=== PATIENT | male | born 1960 | race African-American/Black ===

== ENCOUNTER 2018-02-05 15:05 | Emergency (ER) | payer BC, OTHER, SELFPAY ==
[2018-02-05] MEDS ORDERED: MORPHINE 4 MG/ML SYR ONE ×2 (15:28→17:46)
--- NOTE | 2018-02-05 16:45 | ER ---
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 Transition of care: patient was not received from another setting of care. Onset of symptoms was February 05, 2018. Risk Assessment: Do you want to hurt yourself or someone else? Patient reports no desire to harm self or others. Initial Sepsis Screen: Does the patient meet any 2 criteria? No. Patient's initial sepsis screen is negative. Does the patient have a suspected source of infection? No. Patient's initial sepsis screen is negative. Care prior to arrival: None. 15:06 Method Of Arrival: EMS: [facility] 15:06 Acuity: JULISSA 4 hj Triage Assessment: 15:11 General: Appears in no apparent distress. uncomfortable, Behavior is calm, cooperative, hj appropriate for age. Pain: Complains of pain in right leg. EENT: No signs and/or symptoms were reported regarding the EENT system. Neuro: Level of Consciousness is awake, alert, obeys commands, Oriented to person, place, time, situation, Appropriate for age. Cardiovascular: Capillary refill < 3 seconds Patient's skin is warm and dry. Respiratory: Airway is patent Respiratory effort is even, unlabored, Respiratory pattern is regular, symmetrical. GI: No signs and/or symptoms were reported involving the gastrointestinal system. : No signs and/or symptoms were reported regarding the genitourinary system. Derm: No signs and/or symptoms reported regarding the dermatologic system. Musculoskeletal: per report fracture Reports pain in right leg. Injury Description: Crush injury. Historical: - Allergies: 15:10 No Known Allergies; hj - Home Meds: 15:10 lisinopril Oral [Active]; Januvia oral oral [Active]; Aspirin Oral [Active]; hj hydrochlorothiazide Oral [Active]; - PMHx: 15:10 Hypertension; Diabetes - NIDDM; hj - PSHx: 15:10 Unable to obtain; hj - Immunization history:: Adult Immunizations up to date. - Social history:: Smoking status: Patient/guardian denies using tobacco, Patient/guardian denies using alcohol. - Ebola Screening: : Patient negative for fever greater than or equal to 101.5 degrees Fahrenheit, and additional compatible Ebola Virus Disease symptoms Patient denies exposure to infectious person Patient denies travel to an Ebola-affected area in the 21 days before illness onset. - Family history:: not pertinent. - Hospitalizations: : No recent hospitalization is reported. Screenin:12 Abuse screen: Denies threats or abuse. Denies injuries from another. Nutritional hj screening: No deficits noted. Tuberculosis screening: No symptoms or risk factors identified. Fall Risk None identified. Assessment: 15:20 Reassessment: per provider, eze wrapped and gauze removed;. General: Appears in no hj apparent distress. uncomfortable, Behavior is calm, cooperative, appropriate for age. Pain: Complains of pain in right leg. Neuro: Level of Consciousness is awake, alert, obeys commands, Oriented to person, place, time, situation, Appropriate for age. Cardiovascular: Capillary refill < 3 seconds Patient's skin is warm and dry. Respiratory: Airway is patent Respiratory effort is even, unlabored, Respiratory pattern is regular, symmetrical. GI: No signs and/or symptoms were reported involving the gastrointestinal system. : No signs and/or symptoms were reported regarding the genitourinary system. EENT: No signs and/or symptoms were reported regarding the EENT system. Derm: No signs and/or symptoms reported regarding the dermatologic system. Musculoskeletal: Reports numbness in right leg pain in right leg. 16:06 Reassessment: xray taken; awaiting results and POC:. 16:45 Reassessment: for transfer to [facility] per ; will update family on POC;. Vital Signs: 15:12 BP 167 / 109; Pulse 85; Resp 18; Temp 98.0(O); Pulse Ox 96% on R/A; Weight 127.01 kg; hj Height 6 ft. 0 in. (182.88 cm); Pain 10/10; 16:07 BP 164 / 119; Pulse 82; Resp 18; Pulse Ox 100% on R/A; hj 16:45 BP 161 / 111; Pulse 81; Resp 18; Pulse Ox 100% on R/A; hj 15:12 Body Mass Index 37.97 (127.01 kg, 182.88 cm) hj ED Course: 15:05 Patient arrived in ED. hj 15:06 Arpan Romero RN is Primary Nurse. hj 15:06 Demetrius Beyer MD is Attending Physician. rn 15:09 Triage completed. hj 15:12 Arm band placed on left wrist. hj 15:12 Patient has correct armband on for positive identification. Call light in reach. Side hj rails up X2. with splint on R leg. 15:43 X-ray completed. Portable x-ray completed in exam room. Patient tolerated procedure bb2 well. 15:44 XRAY Tib Fib RIGHT In Process Unspecified. EDMS 17:07 No provider procedures requiring assistance completed. Patient did not have IV access hj during this emergency room visit. Administered Medications: 15:19 Drug: morphine 4 mg Route: IM; Site: right deltoid; hj 15:28 Follow up: Response: No adverse reaction; Pain is decreased hj 17:46 Drug: morphine 4 mg Route: IM; Site: right deltoid; hj 17:46 Follow up: Response: No adverse reaction; Pain is decreased hj Outcome: 16:45 ER care complete, transfer ordered by . rn 17:07 Transferred by ground EMS to [facility], Transfer form completed. X-rays sent hj w/ patient. 17:07 Condition: stable 17:07 Instructed on the need for transfer, Demonstrated understanding of instructions. 17:49 Patient left the ED. Signatures: Dispatcher [employer] EDMS Demetrius Beyer MD MD rn Joaquin, Henry, RN RN hj Bock, Brittany bb2
--- NOTE | 2018-02-05 16:46 | EDPHYS ---
Physician Documentation [facility] Name: Faheem Chance Age: 57 yrs Sex: Male : 1960 Arrival Date: 02/05/2018 Time: 15:05 Bed 18 Private MD: ED Physician Demetrius Beyer HPI: 02/05 16:42 This 57 yrs old Black Male presents to ER via EMS with complaints of Leg Injury. rn 16:42 The patient presents with an injury, pain, swelling. The complaints affect the right rn christianson. Onset: The symptoms/episode began/occurred just prior to arrival. Treatment prior to arrival includes: splinting the affected extremity. Severity of symptoms: At their worst the symptoms were moderate, in the emergency department the symptoms have improved. The patient has not experienced similar symptoms in the past. 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 Historical: - Allergies: 15:10 No Known Allergies; hj - Home Meds: 15:10 lisinopril Oral [Active]; Januvia oral oral [Active]; Aspirin Oral [Active]; hj hydrochlorothiazide Oral [Active]; - PMHx: 15:10 Hypertension; Diabetes - NIDDM; hj - PSHx: 15:10 Unable to obtain; hj - Immunization history:: Adult Immunizations up to date. - Social history:: Smoking status: Patient/guardian denies using tobacco, Patient/guardian denies using alcohol. - Ebola Screening: : Patient negative for fever greater than or equal to 101.5 degrees Fahrenheit, and additional compatible Ebola Virus Disease symptoms Patient denies exposure to infectious person Patient denies travel to an Ebola-affected area in the 21 days before illness onset. - Family history:: not pertinent. - Hospitalizations: : No recent hospitalization is reported. ROS: 16:42 Constitutional: Negative for fever, chills, and weight loss, Eyes: Negative for injury, rn pain, redness, and discharge, Neck: Negative for injury, pain, and swelling, Cardiovascular: Negative for chest pain, palpitations, and edema, Respiratory: Negative for shortness of breath, cough, wheezing, and pleuritic chest pain, Abdomen/GI: Negative for abdominal pain, nausea, vomiting, diarrhea, and constipation, Back: Negative for injury and pain, Neuro: Negative for headache, weakness, numbness, tingling, and seizure. Exam: 16:04 Constitutional: This is a well developed, well nourished patient who is awake, alert, rn and in no acute distress. Head/Face: Normocephalic, atraumatic. Eyes: Pupils equal round and reactive to light, extra-ocular motions intact. Lids and lashes normal. Conjunctiva and sclera are non-icteric and not injected. Cornea within normal limits. Periorbital areas with no swelling, redness, or edema. Neck: Supple, full range of motion, no vertebral point tenderness. Back: No spinal tenderness. MS/ Extremity: Pulses equal, no cyanosis. Neurovascular intact. + swollen RLE with several abrasions, no deep lacerations, no tenderness above right knee or below right ankle. Neuro: Awake and alert, GCS 15, oriented to person, place, time, and situation. Motor strength 5/5 in all extremities. Sensory grossly intact. Vital Signs: 15:12 BP 167 / 109; Pulse 85; Resp 18; Temp 98.0(O); Pulse Ox 96% on R/A; Weight 127.01 kg; hj Height 6 ft. 0 in. (182.88 cm); Pain 10/10; 16:07 BP 164 / 119; Pulse 82; Resp 18; Pulse Ox 100% on R/A; hj 16:45 BP 161 / 111; Pulse 81; Resp 18; Pulse Ox 100% on R/A; hj 15:12 Body Mass Index 37.97 (127.01 kg, 182.88 cm) MDM: 15:06 Patient medically screened. rn 16:42 Differential diagnosis: closed fracture. Data reviewed: vital signs, nurses notes, rn radiologic studies, plain films, and as a result, I will admit patient. Counseling: I had a detailed discussion with the patient and/or guardian regarding: the historical points, exam findings, and any diagnostic results supporting the discharge/admit diagnosis, radiology results, the need to transfer to another facility, for higher level of care, Dr. Ramsey requested transfer to trauma center upon consultation.. Response to treatment: the patient's symptoms have mildly improved after treatment, and as a result, I will admit patient. ED course: Accepted for transfer to [facility] trauma [facility].. 02/05 15:17 Order name: XRAY Tib Fib RIGHT; Complete Time: 17:36 rn Administered Medications: 15:19 Drug: morphine 4 mg Route: IM; Site: right deltoid; hj 15:28 Follow up: Response: No adverse reaction; Pain is decreased hj 17:46 Drug: morphine 4 mg Route: IM; Site: right deltoid; hj 17:46 Follow up: Response: No adverse reaction; Pain is decreased Disposition: 02/05/18 16:45 Transfer ordered to [facility]. Diagnosis are Comminuted fracture of shaft of tibia, Fracture of shaft of fibula. - Reason for transfer: Higher level of care. - Accepting physician is Dr. Porter. - Condition is Stable. - Problem is new. - Symptoms have improved. Signatures: Dispatcher [employer] EDDemetrius Garcia MD MD rn Joaquin, Henry, RN RN hj Corrections: (The following items were deleted from the chart) 17:49 16:45 02/05/2018 16:45 Transfer ordered to [facility]. hj Diagnosis is Comminuted fracture of shaft of tibia; Fracture of shaft of fibula. Reason for transfer: Higher level of care. Accepting physician is Dr. Porter. Condition is Stable. Problem is new. Symptoms have improved. rn
--- NOTE | 2018-02-05 17:25 | RAD REPORT ---
EXAM DESCRIPTION: RAD - Tib Fib Right - 02/05/2018 3:50 pm CLINICAL HISTORY: Right leg pain status post fall FINDINGS: A comminuted oblique markedly displaced fracture involves the mid fibula. A mildly displaced oblique fracture involves the proximal tibial diametaphysis A nondisplaced fracture involves the mid to distal right tibia. An additional nondisplaced fracture involves the diaphysis of the distal right tibia An 18 millimeter bony density lies inferior to the patella. Significant soft tissue swelling is not s een. I suspect this represents an old fracture. If the patient has clinical symptoms to suggest an ac nenana fracture then CT or MRI would be recommended
== END 2018-02-05 17:49 | disposition short-term general hospital (02) ==
LOC: ER 15:05
DX: S82.251A Displaced comminuted fracture of shaft of right tibia, initial encounter for closed fracture (principal); S82.451A Displaced comminuted fracture of shaft of right fibula, initial encounter for closed fracture; W22.8XXA Striking against or struck by other objects, initial encounter; Y93.9 Activity, unspecified; Y92.9 Unspecified place or not applicable; Z79.82 Long term (current) use of aspirin; I10 Essential (primary) hypertension; E11.9 Type 2 diabetes mellitus without complications
CPT/HCPCS: 96372; 99285

== ENCOUNTER 2018-02-21 12:30 | Emergency (ER) | payer OTHER, SELFPAY ==
[2018-02-21 13:49] LABS: Absolute Lymphocytes (CBC) 1.6 K/uL (0.7-4.9); Absolute Monocytes 0.7 K/uL (0.1-1.3); Basophils % 1.8 % (0-1.3); Eosinophils % 3.1 % (0-4.4); Hematocrit 32.6 % (39.6-49.0); Lymphocytes % 29.3 % (15.3-44.8); MCH 29.7 pg (27.0-35.0); MCV 86.5 fL (80-100); MPV 8.1 fL (7.6-11.3); Monocytes % 12.6 % (3.3-12.3); RBC Red Blood Cell Count 3.77 M/uL (4.33-5.43)
[2018-02-21 14:02] LABS: BUN Blood Urea Nitrogen 12 mg/dL (7-18); Bicarbonate 30 mmol/L (21-32); Glucose Level 174 mg/dL (74-106); Potassium 3.5 mmol/L (3.5-5.1); Sodium Level 137 mmol/L (136-145)
--- NOTE | 2018-02-21 14:40 | RAD REPORT ---
EXAM DESCRIPTION: BRITTExtreisa Venous Uni Ltd02/21/2018 2:10 pm CLINICAL HISTORY: Right leg pain COMPARISON: None. FINDINGS: Right common femoral, superficial femoral, popliteal and right posterior tibial veins are compressible and demonstrate augmentation. Doppler demonstrates good flow. IMPRESSION: No evidence of deep venous thrombosis involving the right lower extremity.
--- NOTE | 2018-02-21 15:22 | EDPHYS ---
Physician Documentation [facility] Name: Faheem Chance Age: 57 yrs Sex: Male : 1960 Arrival Date: 02/21/2018 Time: 12:33 Bed 14 Private MD: ED Physician Lennox Barrios HPI: 02/21 14:37 This 57 yrs old Black Male presents to ER via Wheelchair with complaints of SWELLING OF jr8 FOOT. 14:37 Onset: The symptoms/episode began/occurred gradually, 2 day(s) ago. Modifying factors: jr8 The symptoms are alleviated by nothing. the symptoms are aggravated by movement. Associated signs and symptoms: The patient has no apparent associated signs or symptoms. Severity of symptoms: At their worst the symptoms were mild, in the emergency department the symptoms are unchanged. The patient has not experienced similar symptoms in the past. The patient has been recently seen by a physician:. Patient has recent kurt put in right leg due to fracture about 2 weeks ago. Stated that over the last couple of days has noticed increased swelling to right foot with increased warmth. Historical: - Allergies: 12:55 No Known Allergies; aj1 - Home Meds: 13:08 gabapentin 300 mg oral cap [Active]; metformin 500 mg Oral tab 1 tab 2 times per day tw2 [Active]; tramadol 50 mg Oral tab 2 tabs every 6 hours [Active]; aspirin 81 mg Oral chew 1 tab once daily [Active]; polyethylene glycol 3350 17 gram oral pwpk 1 packet once daily [Active]; docusate sodium 100 mg Oral cap 1 cap once daily [Active]; - PMHx: 12:55 Diabetes - NIDDM; Hypertension; aj1 - PSHx: 12:55 kurt in right leg; aj1 - Immunization history:: Flu vaccine is up to date. - Social history:: Smoking status: Patient/guardian denies using tobacco. - Ebola Screening: : Patient denies travel to an Ebola-affected area in the 21 days before illness onset. ROS: 14:37 Eyes: Negative for injury, pain, redness, and discharge, ENT: Negative for injury, jr8 pain, and discharge, Neck: Negative for injury, pain, and swelling, Cardiovascular: Negative for chest pain, palpitations, and edema, Respiratory: Negative for shortness of breath, cough, wheezing, and pleuritic chest pain, Abdomen/GI: Negative for abdominal pain, nausea, vomiting, diarrhea, and constipation, Back: Negative for injury and pain, Skin: Negative for injury, rash, and discoloration, Neuro: Negative for headache, weakness, numbness, tingling, and seizure. 14:37 MS/extremity: Positive for pain, swelling, tenderness, warmth. Exam: 14:37 Cardiovascular: Regular rate and rhythm with a normal S1 and S2. No gallops, murmurs, jr8 or rubs. Normal PMI, no JVD. No pulse deficits. Respiratory: Lungs have equal breath sounds bilaterally, clear to auscultation and percussion. No rales, rhonchi or wheezes noted. No increased work of breathing, no retractions or nasal flaring. Abdomen/GI: Soft, non-tender, with normal bowel sounds. No distension or tympany. No guarding or rebound. No evidence of tenderness throughout. Back: No spinal tenderness. No costovertebral tenderness. Full range of motion. Skin: Warm, dry with normal turgor. Normal color with no rashes, no lesions, and no evidence of cellulitis. Neuro: Awake and alert, GCS 15, oriented to person, place, time, and situation. Cranial nerves II-XII grossly intact. Motor strength 5/5 in all extremities. Sensory grossly intact. Cerebellar exam normal. Normal gait. 14:37 Musculoskeletal/extremity: Extremities: grossly normal except: noted in the right leg: erythema, pain, swelling, tenderness, ROM: intact in all extremities, Circulation is intact in all extremities. Sensation intact. DVT Exam: pain, that is mild, of the right leg, swelling, that is moderate, of the right leg, tenderness, that is mild, of the right leg, erythema, that is mild, of the right leg, increased warmth, that is moderate, of the right leg. Vital Signs: 12:55 BP 171 / 118; Pulse 92; Resp 18; Temp 98.3; Pulse Ox 100% on R/A; Weight 129.27 kg (R); aj1 Height 6 ft. 0 in. (182.88 cm) (R); Pain 2/10; 13:43 BP 154 / 111; Pulse 85; Resp 17; Pulse Ox 99% on R/A; tw2 14:36 BP 150 / 100; Pulse 79; Resp 17; Pulse Ox 100% on R/A; tw2 15:16 BP 177 / 109; Pulse 80; Resp 17; Pulse Ox 99% on R/A; tw2 12:55 Body Mass Index 38.65 (129.27 kg, 182.88 cm) aj1 MDM: 13:02 Patient medically screened. jr8 15:20 Data reviewed: vital signs, nurses notes, lab test result(s), radiologic studies, jr8 ultrasound, and as a result, I will discharge patient. Data interpreted: Pulse oximetry: on room air is 99 %. Interpretation: normal. Counseling: I had a detailed discussion with the patient and/or guardian regarding: the historical points, exam findings, and any diagnostic results supporting the discharge/admit diagnosis, lab results, radiology results, the need for outpatient follow up, a orthopedic surgeon, to return to the emergency department if symptoms worsen or persist or if there are any questions or concerns that arise at home. 02/21 13:23 Order name: CBC with Diff; Complete Time: 14:01 8 02/21 13:23 Order name: Basic Metabolic Panel; Complete Time: 14:05 jr8 02/21 13:23 Order name: IV; Complete Time: 13:43 jr8 02/21 13:23 Order name: US Extremity Venous Unilateral Ltd; Complete Time: 15:16 jr8 Administered Medications: No medications were administered Disposition: 02/22 14:27 Co-signature as Attending Physician, Lennox Barrios MD I agree with the assessment and dennys plan of care. Disposition: 02/21/18 15:21 Discharged to Home. Impression: Edema, unspecified, Cellulitis of right lower limb. - Condition is Stable. - Discharge Instructions: Cellulitis, Adult, Edema. - Prescriptions for Bactrim DS 800- 160 mg Oral Tablet - take 1 tablet by ORAL route every 12 hours for 10 days; 20 tablet. - Medication Reconciliation Form, Thank You Letter, Antibiotic Education, Prescription Opioid Use form. - Follow up: Private Physician; When: 2 - 3 days; Reason: Recheck today's complaints, Continuance of care, Re-evaluation by your physician. - Problem is new. - Symptoms have improved. Signatures: Dispatcher [employer] EDCristina Elder RN RN aj1 Lennox Barrios MD MD cha Roszak, Josh, PA PA jr8 Finney, Elin, RN RN tw2 Corrections: (The following items were deleted from the chart) 02/21 15:29 15:21 02/21/2018 15:21 Discharged to Home. Impression: Edema, unspecified; Cellulitis tw2 of right lower limb. Condition is Stable. Forms are Medication Reconciliation Form, Thank You Letter, Antibiotic Education, Prescription Opioid Use. Follow up: Private Physician; When: 2 - 3 days; Reason: Recheck today's complaints, Continuance of care, Re-evaluation by your physician. Problem is new. Symptoms have improved. jr8
--- NOTE | 2018-02-21 15:22 | ER ---
Nurse's Notes [facility] Name: Faheem Chance Age: 57 yrs Sex: Male : 1960 Arrival Date: 02/21/2018 Time: 12:33 Bed 14 Private MD: Diagnosis: Edema, unspecified;Cellulitis of right lower limb Presentation: 02/21 12:48 Presenting complaint: Patient states: He has a right tibia and fibula fracture, they aj1 put a kurt on February 06 and released him from [place] on the . Last night he had a hard time sleeping because of the pain, when his came home from [place] this morning she noticed that his foot was very swollen. Patient is able to wiggle his toes, is able to feel touch in right foot. Unable to feel pulse in right foot due to swelling, patient's said they had to find it with doppler when they were in [place]. Transition of care: patient was not received from another setting of care. Onset of symptoms was February 21, 2018. Risk Assessment: Do you want to hurt yourself or someone else? Patient reports no desire to harm self or others. Initial Sepsis Screen: Does the patient meet any 2 criteria? No. Patient's initial sepsis screen is negative. Does the patient have a suspected source of infection? No. Patient's initial sepsis screen is negative. Care prior to arrival: None. 12:48 Method Of Arrival: Wheelchair aj1 12:48 Acuity: JULISSA 3 aj1 Triage Assessment: 12:55 General: Appears in no apparent distress. uncomfortable, Behavior is calm, cooperative, aj1 appropriate for age. Pain: Complains of pain in right leg Pain currently is 1 out of 10 on a pain scale. Neuro: Level of Consciousness is awake, alert, obeys commands. Cardiovascular: Patient's skin is warm and dry. Respiratory: Airway is patent Respiratory effort is even, unlabored, Respiratory pattern is regular, symmetrical. Musculoskeletal: Swelling present in right foot, right ankle. Historical: - Allergies: 12:55 No Known Allergies; aj1 - Home Meds: 13:08 gabapentin 300 mg oral cap [Active]; metformin 500 mg Oral tab 1 tab 2 times per day tw2 [Active]; tramadol 50 mg Oral tab 2 tabs every 6 hours [Active]; aspirin 81 mg Oral chew 1 tab once daily [Active]; polyethylene glycol 3350 17 gram oral pwpk 1 packet once daily [Active]; docusate sodium 100 mg Oral cap 1 cap once daily [Active]; - PMHx: 12:55 Diabetes - NIDDM; Hypertension; aj1 - PSHx: 12:55 kurt in right leg; aj1 - Immunization history:: Flu vaccine is up to date. - Social history:: Smoking status: Patient/guardian denies using tobacco. - Ebola Screening: : Patient denies travel to an Ebola-affected area in the 21 days before illness onset. Screenin:15 Abuse screen: Denies threats or abuse. Nutritional screening: No deficits noted. tw2 Tuberculosis screening: No symptoms or risk factors identified. Fall Risk None identified. Assessment: 13:15 General: Appears in no apparent distress. obese, unkempt, Behavior is calm, tw2 cooperative, appropriate for age. Pain: Complains of pain in right leg. Neuro: Level of Consciousness is awake, alert, obeys commands, Oriented to person, place, time, situation. Cardiovascular: Denies chest pain, shortness of breath, Heart tones S1 S2 Capillary refill < 3 seconds Patient's skin is warm and dry. Respiratory: Airway is patent Respiratory effort is even, unlabored, Respiratory pattern is regular, symmetrical, Breath sounds are clear bilaterally. GI: No signs and/or symptoms were reported involving the gastrointestinal system. Abdomen is round non-distended, obese, Bowel sounds present X 4 quads. : No signs and/or symptoms were reported regarding the genitourinary system. EENT: No signs and/or symptoms were reported regarding the EENT system. Derm: pt arrived in a eze wrap that was soiled and dirty, dressings removed, swelling and redness noted to right LE, sutures in place above and below knee. Musculoskeletal: Circulation, motion, and sensation intact. Swelling present in right knee, right christianson, anterior aspect of right ankle and dorsum of right foot small area of bloody drainage noted to the dorsum of right foot. 13:18 Reassessment: provider at bedside at this time. tw2 13:44 Reassessment: Patient appears in no apparent distress at this time. No changes from tw2 previously documented assessment. Patient and/or family updated on plan of care and expected duration. Pain level reassessed. Patient is alert, oriented x 3, equal unlabored respirations, skin warm/dry/pink. 14:36 Reassessment: Patient appears in no apparent distress at this time. No changes from tw2 previously documented assessment. Patient and/or family updated on plan of care and expected duration. Pain level reassessed. Patient is alert, oriented x 3, equal unlabored respirations, skin warm/dry/pink. 15:17 Reassessment: Patient appears in no apparent distress at this time. No changes from tw2 previously documented assessment. Patient and/or family updated on plan of care and expected duration. Pain level reassessed. Patient is alert, oriented x 3, equal unlabored respirations, skin warm/dry/pink. Vital Signs: 12:55 BP 171 / 118; Pulse 92; Resp 18; Temp 98.3; Pulse Ox 100% on R/A; Weight 129.27 kg (R); aj1 Height 6 ft. 0 in. (182.88 cm) (R); Pain 2/10; 13:43 BP 154 / 111; Pulse 85; Resp 17; Pulse Ox 99% on R/A; tw2 14:36 BP 150 / 100; Pulse 79; Resp 17; Pulse Ox 100% on R/A; tw2 15:16 BP 177 / 109; Pulse 80; Resp 17; Pulse Ox 99% on R/A; tw2 12:55 Body Mass Index 38.65 (129.27 kg, 182.88 cm) aj1 ED Course: 12:33 Patient arrived in ED. rg4 12:54 Triage completed. aj1 12:55 Arm band placed on Patient placed in an exam room. aj1 13:02 Bull Logan PA is PHCP. jr8 13:02 Lennox Barrios MD is Attending Physician. jr8 13:06 Elin Finney, VALENCIA is Primary Nurse. tw2 13:15 Bed in low position. Call light in reach. Adult w/ patient. Pulse ox on. NIBP on. tw2 13:43 Basic Metabolic Panel Sent. tw2 13:43 CBC with Diff Sent. tw2 13:44 Missed attempt(s): 22 gauge in right antecubital area. Bleeding controlled, band aid tw2 applied, catheter tip intact. Inserted saline lock: 24 gauge in right hand, using aseptic technique. Blood collected. 14:08 Ultrasound completed. Patient tolerated well. sg3 14:09 US Extremity Venous Unilateral Ltd In Process Unspecified. EDMS 15:28 No provider procedures requiring assistance completed. IV discontinued, intact, tw2 bleeding controlled, No redness/swelling at site. Pressure dressing applied. Dressings: non-adherent dressing x 3 dorsum of right foot and right christianson and right knee 4X4s X 4; dorsum of right foot and anterior aspect of right ankle and right knee eze wrap x4. Administered Medications: No medications were administered Outcome: 15:21 Discharge ordered by . [email or web address] 15:29 Discharged to home via wheelchair, with family. tw2 15:29 Condition: stable 15:29 Discharge instructions given to patient, family, Instructed on discharge instructions, follow up and referral plans. medication usage, wound care, Demonstrated understanding of instructions, follow-up care, medications, wound care, Prescriptions given X 1. 15:29 Patient left the ED. tw2 Signatures: Dispatcher [employer] EDMS Cristina Wolf RN RN aj1 Bull Logan PA PA jr8 Elin Finney RN RN tw2 Maria Luisa León rg4 Sharon Bolaños sg3
== END 2018-02-21 15:29 | disposition home or self-care (01) ==
LOC: ER 12:30
DX: L03.115 Cellulitis of right lower limb (principal); E11.9 Type 2 diabetes mellitus without complications; I10 Essential (primary) hypertension
CPT/HCPCS: 36415; 80048; 85025; 93971; 99284

== ENCOUNTER 2022-01-29 12:26 | Inpatient (IN) | payer OTHER ==
[2022-01-29 13:42] LABS: Hematocrit 37.8 % (39.6-49.0); Lymphocytes % 15.4 % (15.3-44.8); MCV 89.2 fL (80-100); MPV 9.5 fL (7.6-11.3); RBC Red Blood Cell Count 4.24 M/uL (4.33-5.43)
[2022-01-29 13:47] LABS: Protime INR 1.05
[2022-01-29] MEDS ORDERED: NA CHLORIDE 0.9% 1,000 ML ONE (14:00)
[2022-01-29 14:01] LABS: Albumin 2.7 g/dL (3.4-5.0); Bilirubin Direct 0.2 mg/dL (0-0.2); Magnesium 1.8 mg/dL (1.8-2.4); Potassium 3.2 mmol/L (3.5-5.1); Protein, Total 6.4 g/dL (6.4-8.2)
[2022-01-29 14:05] LABS: Troponin High Sensitivity 110.8 pg/mL (<58.9)
--- NOTE | 2022-01-29 14:23 | RAD REPORT ---
EXAM DESCRIPTION: RAD - Chest Single View - 01/29/2022 2:11 pm CLINICAL HISTORY: DYSPNEA COMPARISON: None TECHNIQUE: AP portable chest image was obtained 01/29/2022 2:11 pm . FINDINGS: Lung volumes are low. Consolidated left upper lobe parenchyma is identifiable. There is pa tchy opacification partially obscuring the left hemidiaphragm. Bilateral increased perihilar intersti tial opacification with some associated alveolar opacification. Mild cardiomegaly is present. Vascular engorgement is seen. Trachea is midline. No measurable pleural effusion and no pneumothorax. No acute bony abnormality seen. No acute aortic findings suspected. IMPRESSION: Consolidation of the left upper lung field most likely pneumonia in the acute clinical s etting. Heart, vasculature and central lung markings are all prominent suggesting failure or volume overload.
--- NOTE | 2022-01-29 15:02 | EDPHYS ---
Physician Documentation [facility] Name: Faheem Chance Age: 61 yrs Sex: Male : 1960 Arrival Date: 01/29/2022 Time: 12:28 Bed 5 Private MD: ED Physician Lennox Barrios HPI: 01/29 14:54 This 61 yrs old Black Male presents to ER via Wheelchair with complaints of Shortness dennys Of Breath. 14:54 The patient has shortness of breath at rest, with light activity. Onset: The dennys symptoms/episode began/occurred 10 day(s) ago. Duration: The symptoms are continuous, and are steadily getting worse. The patient's shortness of breath is aggravated by coughing, exertion, light activity, supine position, walking, is alleviated by rest, application of supplemental oxygen. Associated signs and symptoms: Pertinent positives: non-productive cough, fever. Severity of symptoms: At their worst the symptoms were moderate in the emergency department the symptoms have improved mildly. The patient has not experienced similar symptoms in the past. Historical: - Allergies: 12:54 No Known Allergies; iw - PMHx: 12:54 Diabetes - NIDDM; Hypertension; iw - Immunization history:: Adult Immunizations unknown. - Social history:: Smoking status: . ROS: 14:55 Constitutional: Negative for fever, chills, and weight loss, Eyes: Negative for injury, dennys pain, redness, and discharge, ENT: Negative for injury, pain, and discharge, Neck: Negative for injury, pain, and swelling, Cardiovascular: Negative for chest pain, palpitations, and edema, Abdomen/GI: Negative for abdominal pain, nausea, vomiting, diarrhea, and constipation, Back: Negative for injury and pain, : Negative for injury, bleeding, discharge, and swelling, MS/Extremity: Negative for injury and deformity, Skin: Negative for injury, rash, and discoloration, Psych: Negative for depression, anxiety, suicide ideation, homicidal ideation, and hallucinations, Allergy/Immunology: Negative for hives, rash, and allergies, Endocrine: Negative for neck swelling, polydipsia, polyuria, polyphagia, and marked weight changes, Hematologic/Lymphatic: Negative for swollen nodes, abnormal bleeding, and unusual bruising. 14:55 Respiratory: Positive for cough, shortness of breath. Exam: 14:55 Constitutional: This is a well developed, well nourished patient who is awake, alert, dennys and in no acute distress. Head/Face: Normocephalic, atraumatic. Eyes: Pupils equal round and reactive to light, extra-ocular motions intact. Lids and lashes normal. Conjunctiva and sclera are non-icteric and not injected. Cornea within normal limits. Periorbital areas with no swelling, redness, or edema. ENT: Nares patent. No nasal discharge, no septal abnormalities noted. Tympanic membranes are normal and external auditory canals are clear. Oropharynx with no redness, swelling, or masses, exudates, or evidence of obstruction, uvula midline. Mucous membranes moist. Neck: Trachea midline, no thyromegaly or masses palpated, and no cervical lymphadenopathy. Supple, full range of motion without nuchal rigidity, or vertebral point tenderness. No Meningismus. Chest/axilla: Normal chest wall appearance and motion. Nontender with no deformity. No lesions are appreciated. Cardiovascular: Regular rate and rhythm with a normal S1 and S2. No gallops, murmurs, or rubs. Normal PMI, no JVD. No pulse deficits. Abdomen/GI: Soft, non-tender, with normal bowel sounds. No distension or tympany. No guarding or rebound. No evidence of tenderness throughout. Back: No spinal tenderness. No costovertebral tenderness. Full range of motion. Male : Normal genitalia with no discharge or lesions. Skin: Warm, dry with normal turgor. Normal color with no rashes, no lesions, and no evidence of cellulitis. MS/ Extremity: Pulses equal, no cyanosis. Neurovascular intact. Full, normal range of motion. Neuro: Awake and alert, GCS 15, oriented to person, place, time, and situation. Cranial nerves II-XII grossly intact. Motor strength 5/5 in all extremities. Sensory grossly intact. Cerebellar exam normal. Normal gait. Psych: Awake, alert, with orientation to person, place and time. Behavior, mood, and affect are within normal limits. 14:55 Respiratory: the patient does not display signs of respiratory distress, Respirations: labored breathing, that is mild, Breath sounds: decreased breath sounds, Respiratory rate: 19 15:28 ECG was reviewed by the Attending Physician. [facility] Vital Signs: 12:52 BP 93 / 65; Pulse 82; Resp 20 S; Temp 97.8; Pulse Ox 94% ; Weight 104.33 kg; Height 5 iw ft. 11 in. (180.34 cm); 13:55 BP 126 / 81; Pulse 70; Resp 19; Pulse Ox 98% on R/A; jd3 12:52 Body Mass Index 32.08 (104.33 kg, 180.34 cm) iw MDM: 12:58 Patient medically screened. [facility] 15:27 Differential diagnosis: Anemia asthma, Bronchitis CHF exacerbation, Chronic Obstructive dennys Pulmonary Disease bronchitis, flu, pneumonia, pulmonary edema, Pulmonary Embolism reactive airway disease, Sepsis Unstable Angina. Data reviewed: vital signs, nurses notes, lab test result(s), EKG, radiologic studies, CT scan, plain films. 01/29 13:00 Order name: Basic Metabolic Panel; Complete Time: 14:47 [facility] 01/29 13:00 Order name: CBC with Diff; Complete Time: 14:47 [facility] 01/29 13:00 Order name: D-Dimer; Complete Time: 14:47 [facility] 01/29 13:00 Order name: LFT's; Complete Time: 14:47 [facility] 01/29 13:00 Order name: Magnesium; Complete Time: 14:47 [facility] 01/29 13:00 Order name: NT PRO-BNP; Complete Time: 14:47 [facility] 01/29 13:00 Order name: PT-INR; Complete Time: 14:47 [facility] 01/29 13:00 Order name: Troponin HS; Complete Time: 14:47 [facility] 01/29 13:00 Order name: Blood Culture Adult (2) [facility] 01/29 13:00 Order name: Lactate; Complete Time: 14:47 [facility] 01/29 13:00 Order name: SARS-COV-2 RT PCR (Document "Date of Onset" if Symptomatic); Complete Time: [facility] 14:47 01/29 13:00 Order name: Lipase; Complete Time: 14:47 [facility] 01/29 13:00 Order name: Influenza Screen (a \\T\\ B); Complete Time: 14:47 [facility] 01/29 14:59 Order name: ABG [facility] 01/29 13:00 Order name: XRAY Chest (1 view); Complete Time: 14:47 [facility] 01/29 13:00 Order name: EKG; Complete Time: 13:01 [facility] 01/29 13:00 Order name: Cardiac monitoring; Complete Time: 13:07 [facility] 01/29 13:00 Order name: EKG - Nurse/Tech; Complete Time: 13:37 [facility] 01/29 14:09 Order name: CT Chest For PE Angio em1 01/29 14:10 Order name: Extrem Venous W Compress Fausto [facility] 01/29 19:30 Order name: Troponin High Sensitivity [facility] 01/29 13:00 Order name: IV Saline Lock; Complete Time: 13:33 [facility] 01/29 13:00 Order name: Labs collected and sent; Complete Time: 13:33 [facility] 01/29 13:00 Order name: O2 Per Protocol; Complete Time: 13:07 [facility] 01/29 13:00 Order name: O2 Sat Monitoring; Complete Time: : [facility] EC:28 Rate is 78 beats/min. Rhythm is regular. QRS Reeder is Normal. OK interval is normal. QRS dennys interval is normal. QT interval is prolonged at 535 msec. No Q waves. T waves are Normal. No ST changes noted. Clinical impression: NSR w/ Non-specific ST/T Changes, 1st degree heart block, and No evidence of ischemia. Interpreted by me. Reviewed by me. Administered Medications: 14:04 Drug: NS 0.9% 1000 ml Route: IV; Rate: 125 ml/hr; Site: right forearm; em6 19:00 Follow up: Response: No adverse reaction; IV Status: Infusion continued upon admission jd3 15:30 Drug: Rocephin (cefTRIAXone) 2 grams Route: IV; Rate: per protocol; Site: right forearm;jd3 16:30 Follow up: Response: No adverse reaction; IV Status: Completed infusion jd3 15:35 Drug: Lovenox (enoxaparin) 100 mg Route: Sub-Q; Site: abdomen; jd3 16:30 Follow up: Response: No adverse reaction jd3 15:35 Drug: Potassium Effervescent Tablet 50 mEq Route: PO; jd3 16:30 Follow up: Response: No adverse reaction jd3 15:36 Drug: Zithromax (azithromycin) 500 mg Route: IVPB; Infused Over: 1 hrs; Site: right jd3 forearm; 16:30 Follow up: Response: No adverse reaction; IV Status: Completed infusion jd3 15:36 Drug: Aspirin Chewable Tablet 324 mg Route: PO; jd3 16:30 Follow up: Response: No adverse reaction jd3 16:45 Drug: vancoMYCIN 2 grams Route: IVPB; Rate: calculated rate; Site: right forearm; jd3 18:45 Follow up: Response: No adverse reaction; IV Status: Completed infusion jd3 17:26 Drug: Xopenex (levalbuterol) 2.5 mg Route: Inhalation; jd3 18:20 Follow up: Response: No adverse reaction jd3 18:26 Follow up: Response: No adverse reaction em6 17:27 Drug: AtroVENT (ipratropium) Aerosol 0.5 mg Route: Inhalation; jd3 18:20 Follow up: Response: No adverse reaction jd3 18:25 Follow up: Response: No adverse reaction em6 Disposition Summary: 01/29/22 15:02 Hospitalization Ordered Hospitalization Status: Inpatient Admission dennys Provider: Pedro Cramer cha Location: Telemetry/MedSurg (Inpatient) dennys Condition: Stable dennys Problem: new dennys Symptoms: have improved dennys Bed/Room Type: Standard [facility] Room Assignment: 408(01/29/22 18:50) dw Diagnosis - Dyspnea dennys - Pneumonia, unspecified organism dennys - Type 2 diabetes mellitus with hyperglycemia dennys - Essential (primary) hypertension dennys - Hypokalemia dennys Forms: - Medication Reconciliation Form dennys - SBAR form dennys Signatures: Dispatcher [employer] Sona Delgadillo RN RN dw Anderson, Corey, MD MD cha Williams, Irene, RN RN iw Davies, Jonathon, RN RN jd3 Slawson, Ashby, RN RN as6 Brinda Tehodore RN RN em6 Corrections: (The following items were deleted from the chart) 18:50 15:02 dennys dw
--- NOTE | 2022-01-29 15:02 | ER ---
Nurse[facility] Notes [facility] Name: Faheem Chance Age: 61 yrs Sex: Male : 1960 Arrival Date: 01/29/2022 Time: 12:28 Bed 5 Private MD: Diagnosis: Dyspnea;Pneumonia, unspecified organism;Type 2 diabetes mellitus with hyperglycemia;Essential (primary) hypertension;Hypokalemia Presentation: 01/29 12:52 Chief complaint: Patient states: SOB X 4days, no hx of lung problems or CHF, no iw increased swelling in legs, no chest pain, mild cough, no fever. Coronavirus screen: At this time, the client does not indicate any symptoms associated with coronavirus-19. Ebola Screen: Patient negative for fever greater than or equal to 101.5 degrees Fahrenheit, and additional compatible Ebola Virus Disease symptoms Patient denies exposure to infectious person. Patient denies travel to an Ebola-affected area in the 21 days before illness onset. No symptoms or risks identified at this time. Initial Sepsis Screen: Does the patient meet any 2 criteria? No. Patient's initial sepsis screen is negative. Does the patient have a suspected source of infection? No. Patient's initial sepsis screen is negative. Risk Assessment: Do you want to hurt yourself or someone else? Patient reports no desire to harm self or others. Onset of symptoms was January 25, 2022. 12:52 Method Of Arrival: Wheelchair iw 12:52 Acuity: JULISSA 3 iw Historical: - Allergies: 12:54 No Known Allergies; iw - PMHx: 12:54 Diabetes - NIDDM; Hypertension; iw - Immunization history:: Adult Immunizations unknown. - Social history:: Smoking status: . Screenin:14 Abuse screen: Denies threats or abuse. Denies injuries from another. Nutritional as6 screening: No deficits noted. Tuberculosis screening: No symptoms or risk factors identified. Fall Risk None identified. Assessment: 13:37 General: Appears in no apparent distress. comfortable, Behavior is calm, cooperative, jd3 appropriate for age. Pain: Complains of pain in chest. Neuro: [place] Agitation-Sedation Scale (RASS): 0 - Alert and Calm Level of Consciousness is awake, alert, obeys commands, Oriented to person, place, time, situation. Cardiovascular: Heart tones present Capillary refill < 3 seconds Patient's skin is warm and dry. Rhythm is regular. Respiratory: Reports shortness of breath on exertion Airway is patent Respiratory effort is even, unlabored, Respiratory pattern is regular, symmetrical, Breath sounds are clear bilaterally. GI: No signs and/or symptoms were reported involving the gastrointestinal system. : No signs and/or symptoms were reported regarding the genitourinary system. EENT: No signs and/or symptoms were reported regarding the EENT system. Derm: No signs and/or symptoms reported regarding the dermatologic system. Musculoskeletal: No signs and/or symptoms reported regarding the musculoskeletal system. Vital Signs: 12:52 BP 93 / 65; Pulse 82; Resp 20 S; Temp 97.8; Pulse Ox 94% ; Weight 104.33 kg; Height 5 iw ft. 11 in. (180.34 cm); 13:55 BP 126 / 81; Pulse 70; Resp 19; Pulse Ox 98% on R/A; jd3 12:52 Body Mass Index 32.08 (104.33 kg, 180.34 cm) iw ED Course: 12:28 Patient arrived in ED. am2 12:54 Triage completed. iw 12:55 Arm band placed on. iw 12:58 Lennox Barrios MD is Attending Physician. [facility] 13:01 Morgan Lopes RN is Primary Nurse. jd3 13:32 Inserted saline lock: 20 gauge in right wrist, using aseptic technique. kc6 13:32 Influenza Screen (a \\T\\ B) Sent. kc6 13:32 Lipase Sent. kc6 13:32 SARS-COV-2 RT PCR (Document "Date of Onset" if Symptomatic) Sent. kc6 13:32 Lactate Sent. kc6 13:32 Blood Culture Adult (2) Sent. kc6 13:32 Basic Metabolic Panel Sent. kc6 13:33 CBC with Diff Sent. kc6 13:33 D-Dimer Sent. kc6 13:33 PT-INR Sent. kc6 13:33 Troponin HS Sent. kc6 13:33 NT PRO-BNP Sent. kc6 13:33 Magnesium Sent. kc6 13:33 LFT's Sent. kc6 14:13 XRAY Chest (1 view) In Process Unspecified. EDMS 14:59 Extrem Venous W Compress Fausto In Process Unspecified. EDMS 15:00 Pedro Cramer is Hospitalizing Provider. dennys 15:57 CT Chest For PE Angio In Process Unspecified. EDMS 17:40 Blood Culture Adult (2) Sent. oj 20:15 No provider procedures requiring assistance completed. Patient admitted, IV remains in as6 place. 20:16 Bed in low position. Call light in reach. Side rails up X2. as6 Administered Medications: 14:04 Drug: NS 0.9% 1000 ml Route: IV; Rate: 125 ml/hr; Site: right forearm; em6 19:00 Follow up: Response: No adverse reaction; IV Status: Infusion continued upon admission jd3 15:30 Drug: Rocephin (cefTRIAXone) 2 grams Route: IV; Rate: per protocol; Site: right forearm;jd3 16:30 Follow up: Response: No adverse reaction; IV Status: Completed infusion jd3 15:35 Drug: Lovenox (enoxaparin) 100 mg Route: Sub-Q; Site: abdomen; jd3 16:30 Follow up: Response: No adverse reaction jd3 15:35 Drug: Potassium Effervescent Tablet 50 mEq Route: PO; jd3 16:30 Follow up: Response: No adverse reaction jd3 15:36 Drug: Zithromax (azithromycin) 500 mg Route: IVPB; Infused Over: 1 hrs; Site: right jd3 forearm; 16:30 Follow up: Response: No adverse reaction; IV Status: Completed infusion jd3 15:36 Drug: Aspirin Chewable Tablet 324 mg Route: PO; jd3 16:30 Follow up: Response: No adverse reaction jd3 16:45 Drug: vancoMYCIN 2 grams Route: IVPB; Rate: calculated rate; Site: right forearm; jd3 18:45 Follow up: Response: No adverse reaction; IV Status: Completed infusion jd3 17:26 Drug: Xopenex (levalbuterol) 2.5 mg Route: Inhalation; jd3 18:20 Follow up: Response: No adverse reaction jd3 18:26 Follow up: Response: No adverse reaction em6 17:27 Drug: AtroVENT (ipratropium) Aerosol 0.5 mg Route: Inhalation; jd3 18:20 Follow up: Response: No adverse reaction jd3 18:25 Follow up: Response: No adverse reaction em6 Medication: 20:16 VIS not applicable for this client. as6 Outcome: 15:02 Decision to Hospitalize by Provider. dennys 20:15 Admitted to Tele accompanied by tech, via wheelchair, room 408, with chart, Report as6 called to Rea [place] 20:15 Condition: stable 20:15 Instructed on the need for admit. 20:17 Patient left the ED. as6 Signatures: Dispatcher [employer] Lennox Mtz MD MD cha Williams, Irene, RN RN iw Becca Marquez am2 Morgan Lopes RN RN jAustin Aaron RN RN as6 Pau Herbert 6 Lanie Malhotra Erika RN RN em6 Corrections: (The following items were deleted from the chart) 12:54 12:52 Pulse 82bpm; Resp 20bpm; Spontaneous; Temp 97.8F; 104.33 kg; Height 5 ft. 11 in.; iw BMI: 32.0; iw
--- NOTE | 2022-01-29 15:18 | RAD REPORT ---
EXAM DESCRIPTION: US - Extrem Venous W Compress Fausto - 01/29/2022 2:56 pm CLINICAL HISTORY: shortness of breath COMPARISON: None. TECHNIQUE: Real-time sonographic evaluation of the bilateral lower extremity common femoral, superfi cial femoral, popliteal and posterior tibial veins was performed. FINDINGS: Normal compressibility, flow augmentation, phasic flow and spontaneous flow are identified in the left and right lower extremity common femoral, superficial femoral, popliteal and posterior t ibial veins. No intraluminal filling defects seen. IMPRESSION: No DVT in either lower extremity.
[2022-01-29] MEDS ORDERED: AZITHROMYCIN 500 MG INJ IVPB ONE (15:20)
[2022-01-29] MEDS ORDERED: NA CHLORIDE 0.9% 250 ML ONE (15:20)
[2022-01-29] MEDS ORDERED: POTASSIUM 25 MEQ EFFERV TAB ONE (15:20)
[2022-01-29] MEDS ORDERED: CEFTRIAXONE 2000 MG/VIAL ONE (15:20)
[2022-01-29] MEDS ORDERED: ASPIRIN 81 MG CHEWABLE TABLET ONE (15:20)
[2022-01-29] MEDS ORDERED: ENOXAPARIN 100 MG/ML SYR SQ ONE (15:20)
[2022-01-29] MEDS ORDERED: NA CHLORIDE 0.9% 50 ML ONE (15:21)
[2022-01-29 15:38] LABS: Arterial Blood Carboxyhemoglob 1.8 % (0-1.5); Blood Gas Oxyhemoglobin 92.2 % (94-97); Blood O2 Saturation 94.9 % (92-98.5)
[2022-01-29] MEDS ORDERED: VANCOMYCIN 2 GM in NA CHLORIDE 0.9% 500 ML IVPB ONE (16:00)
--- NOTE | 2022-01-29 16:21 | RAD REPORT ---
EXAM DESCRIPTION: CT - Chest For Pe Angio - 01/29/2022 3:55 pm CLINICAL HISTORY: Dyspnea COMPARISON: No comparisons TECHNIQUE: Dynamically enhanced 3 mm thick images of the chest were obtained during administration o f approximately 150mL Isovue 370 IV contrast. Coronal and oblique MIP reconstruction images were gene rated and reviewed. Exam utilizes a protocol to evaluate the pulmonary arterial tree. All CT scans are performed using dose optimization technique as appropriate and may include automated exposure control or mA/KV adjustment according to patient size. FINDINGS: No pulmonary emboli are identified. The aorta as imaged shows no acute or suspicious finding. Mild aortic tortuosity noted. No pericardia l thickening heart size is prominent. No pericardial thickening or effusion. Moderately large area of consolidation is present in the mid and upper portion of the left upper lobe . Patchy areas of consolidation are present in the central aspect of the right upper lobe. In the rig ht apex there is a 2 centimeter rounded area of opacification that is probably acutely consolidated p arenchyma as well. Minimal right lower lobe posterior gutter atelectasis changes. Small bilateral ple ural effusions are present. No pleural based mass or pneumothorax. No mediastinal or hilar suspicious masses. No chest wall masses or abnormal axillary lymphadenopathy. IMPRESSION: No pulmonary emboli identified. Moderate area of consolidation left upper lobe with smaller areas of consolidation in the right upper lobe. Upper lobe findings are more typical for bilateral pneumonia than a pulmonary edema process from fail ure or volume overload. Small bilateral pleural effusions.
[2022-01-29] MEDS ORDERED: LEVALBUTEROL 1.25 MG/3 ML NEB ONE (17:24)
[2022-01-29] MEDS ORDERED: IPRATROPIUM BROM 0.5MG/2.5ML ONE (17:25)
--- NOTE | 2022-01-29 17:44 | P.HP ---
Certification for Inpatient Patient admitted to: Inpatient With expected LOS: >2 Midnights Practitioner: I am a practitioner with admitting privileges, knowledge of patient current condition, hospital course, and medical plan of care. Services: Services provided to patient in accordance with Admission requirements found in Title 42 Section 412.3 of the Code of Federal Regulations Patient History Date of Service: 01/29/22 Reason for admission: Shortness of breath History of Present Illness: 61-year-old gentleman with a history of hypertension, chronic lower extremity lymphedema and diabetes mellitus was brought to the emergency department with a complaint of progressive shortness of breath. Patient reports progressive shortness of breath over the past 1 week. He progressed from shortness of breath with exertion to shortness of breath at rest. He was wheeled to the emergency department in a wheelchair because he could not walk due to respiratory distress. Work-up in the emergency department with chest x-ray and CTA thorax demonstrated bilateral consolidation, worse on the left. He has no leukocytosis, BNP and troponin elevated. Patient was requiring oxygen to maintain good oxygen saturation. He has chronic bilateral lymphedema worse on the right. Patient symptoms related to congestive heart failure versus pneumonia. He denied any history of heart disease or heart failure. EKG shows sinus rhythm. Patient is hospitalized for further management. Allergies No Known Allergies Allergy (Unverified 02/05/18 17:52) - Past Medical/Surgical History -: Hypertension -: Diabetes -: Chronic lymphedema - Family History Mother -: Diabetes - Social History Smoking Status: Never smoker Alcohol use: Yes CD- Drugs: No Place of Residence: Home Review of Systems Other: Patient denied any chest pain, he denied any palpitation, no abdominal pain, no nausea or vomiting or diarrhea. Except as documented, all other systems reviewed and negative. Physical Examination - Physical Exam General: Alert, Moderate distress, Obese HEENT: Atraumatic, PERRLA, EOMI, Sclerae nonicteric Neck: Supple, JVD not distended, No Thyromegaly Respiratory: Diminished (Bilateral), Crackles/rales (Mild bibasilar Rales) Cardiovascular: Regular rate/rhythm, Normal S1 S2, No murmurs, Edema (Bilateral lower extremities, worse on the right) Capillary refill: <2 Seconds Gastrointestinal: Normal bowel sounds, Soft and benign, Non-distended, No tenderness Musculoskeletal: Swelling (Bilateral lower extremity swelling worse on the right) Integumentary: No cyanosis, Other (Bilateral lower extremity xerosis and hyperpigmentation) Neurological: Normal speech, Normal strength at 5/5 x4 extr, Cranial nerves 3-12 intact Lymphatics: No axilla or inguinal lymphadenopathy - Studies Laboratory Data (last 24 hrs) 01/29/22 13:26: PT 11.6, INR 1.05 01/29/22 13:26: WBC 6.2, Hgb 12.5 L, Hct 37.8 L, Plt Count 218 01/29/22 13:26: Sodium 137, Potassium 3.2 L, BUN 16, Creatinine 1.10, Glucose 315 H, Magnesium 1.8, Total Bilirubin 1.0, AST 21, ALT 45, Alkaline Phosphatase 93, Lipase 538 H Microbiology Data (last 24 hrs): 01/29/22 13:00 Nasopharnyx Influenza Type A Antigen Screen - Final 01/29/22 13:00 Nasopharnyx Influenza Type B Antigen Screen - Final Assessment and Plan - Problems (Diagnosis) (1) Pneumonia Current Visit: Yes Status: Acute (2) Acute heart failure Current Visit: Yes Status: Acute (3) Acute respiratory failure with hypoxemia Current Visit: Yes Status: Acute (4) Hypertension Current Visit: Yes Status: Acute (5) DM type 2 (diabetes mellitus, type 2) Current Visit: Yes Status: Acute (6) Obesity Current Visit: Yes Status: Acute (7) NSTEMI (non-ST elevated myocardial infarction) Current Visit: Yes Status: Acute - Plan Admit to the medical floor. Start IV Lasix Monitor intake and output Start IV antibiotics for pneumonia Follow cultures. No sepsis. Continue to trend troponin. Cover NSTEMI with full dose Lovenox. Obtain echocardiogram. Oxygen therapy. Cardiology consult. Insulin sliding scale for glucose management. - Advance Directives Does patient have a Living Will: No Does patient have a Durable POA for Healthcare: No
[2022-01-29] MEDS ORDERED: ONDANSETRON 4 MG/2 ML VIAL IV PRN (18:02)
[2022-01-29] MEDS ORDERED: ALBUTEROL 2.5 MG/3 ML NEB SOL NEB PRN (18:02)
[2022-01-29] MEDS ORDERED: ACETAMINOPHEN 500 MG TAB PO PRN (18:02)
[2022-01-29 18:30] VITALS: BMI 32.1
[2022-01-29] MEDS ORDERED: GLUCAGON 1 MG/VIAL IM PRN (18:49)
[2022-01-29] MEDS ORDERED: D10W 250 ML BAG IV PRN (18:53)
[2022-01-29] MEDS ORDERED: HEPARIN 5000 UNIT/ML 1 ML VIAL SQ SCH (19:00)
[2022-01-29] MEDS: INSULIN -REGULAR HUMAN 50 UNIT/0.5 ML ML SQ SCH (22:48)
[2022-01-29] MEDS: ENOXAPARIN 100 MG/ML SYR SQ SCH (22:48)
[2022-01-29] MEDS: FUROSEMIDE 40 MG/4 ML VIAL IV SCH (22:48)
[2022-01-29 23:20] LABS: Urine Appearance Clear (Clear); Urine Bilirubin Negative (Negative); Urine Blood Negative (Negative); Urine Color Yellow (Yellow); Urine Glucose 2+ (Negative); Urine Protein 2+ (Negative); Urine Specific Gravity 1.015 (1.005-1.030)
[2022-01-30 01:23] LABS: Urine Bacteria <20 /HPF (NONE SEEN); Urine Mucus SLIGHT /HPF (NONE SEEN); Urine RBC <5 /HPF (NONE SEEN)
[2022-01-30 04:20] LABS: Absolute Lymphocytes (CBC) 0.9 K/uL (0.7-4.9); Hematocrit 35.4 % (39.6-49.0); Lymphocytes % 17.5 % (15.3-44.8); MCV 88.5 fL (80-100); MPV 10.3 fL (7.6-11.3)
[2022-01-30 04:36] LABS: Albumin 2.6 g/dL (3.4-5.0); Bilirubin Total 0.6 mg/dL (0.2-1.0); Magnesium 1.7 mg/dL (1.8-2.4); Phosphorus 2.6 mg/dL (2.5-4.9); Potassium 3.2 mmol/L (3.5-5.1); Protein, Total 6.3 g/dL (6.4-8.2); Thyroid Stimulating Hormone 1.48 uIU/mL (0.360-3.740)
[2022-01-30] MEDS ORDERED: MAGNESIUM SULFATE 1 gm IVPB 1 GM/100 ML BAG IV ONE (06:26)
[2022-01-30] MEDS ORDERED: POTASSIUM CL SA 10 MEQ TAB PO ONE (06:27)
[2022-01-30] MEDS: INSULIN -REGULAR HUMAN 50 UNIT/0.5 ML ML SQ SCH ×4 (07:30→21:43)
[2022-01-30] MEDS: ENOXAPARIN 100 MG/ML SYR SQ SCH ×2 (08:11→21:43)
[2022-01-30] MEDS: FUROSEMIDE 40 MG/4 ML VIAL IV SCH ×2 (08:12→16:13)
[2022-01-30] MEDS: CEFTRIAXONE 1,000 MG in NA CHLORIDE 0.9% 50 ML IVPB SCH (08:13)
[2022-01-30] MEDS: AZITHROMYCIN IV 500 MG in NA CHLORIDE 0.9% 250 ML IVPB SCH (08:16)
--- NOTE | 2022-01-30 13:07 | EKG ---
Test Date: 2022-01-29 Test Time: 13:39:17 Producer Assistant: RADHA MEASUREMENT RESULTS: Intervals: Rate: 78 VT: 214 QRSD: 92 QT: 470 QTc: 535 Murray: P: 64 VT: 214 QRS: 78 T: 86 INTERPRETIVE STATEMENTS: Sinus rhythm with 1st degree AV block with premature atrial complexes Nonspecific T wave abnormality Prolonged QT Abnormal ECG No previous ECG available for comparison Electronically Signed On 01-30-22 13:04:39 CDT by Gilmar Huntley
--- NOTE | 2022-01-30 13:46 | ECHO ---
HEIGHT: 5 ft 11 in WEIGHT: 230 lb 0.132 oz DATE OF STUDY: 01/30/[address]: Pedro Cramer MD 2-DIMENSIONAL: YES M.MODE: YES DOPPLER: YES COLOR FLOW: YES TDS: NO PORTABLE: YES DEFINITY: NO BUBBLE STUDY: NO DIAGNOSIS: ACUTE CONGESTIVE HEART FAILURE CARDIAC HISTORY: CATHERIZATION: SURGERY: PROSTHETIC VALVE: PACEMAKER: MEASUREMENTS (cm) DIASTOLIC (NORMALS) SYSTOLIC (NORMALS) IVSd 1.6 (0.6-1.2) LA Diam 3.6 (1.9-4.0) LVEF 35-40% LVIDd 5.0 (3.5-5.7) LVIDs 4.3 (2.0-3.5) %FS 13% LVPWd 1.4 (0.6-1.2) Ao Diam 2.9 (2.0-3.7) 2 DIMENSIONAL ASSESSMENT: RIGHT ATRIUM: NORMAL LEFT ATRIUM: NORMAL RIGHT VENTRICLE: NORMAL LEFT VENTRICLE: LEFT VENTRICULAR HYPERTROPHY TRICUSPID VALVE: MITRAL VALVE: PULMONIC VALVE: NORMAL AORTIC VALVE: PERICARDIAL EFFUSION: NONE AORTIC ROOT: NORMAL LEFT VENTRICULAR WALL MOTION: MODERATE GLOBAL HYPOKINESIS. DOPPLER/COLOR FLOW: SEE BELOW COMMENTS: MODERATELY DEPRESSED LEFT VENTRICULAR EJECTION FRACTION 35-40%. MODERATE GLOBAL HYPOKINESIS. MODERATE CONCENTRIC LEFT VENTRICULAR HYPERTROPHY. MILD MITRAL, AORTIC AND TRICUSPID REGURGITATION. TECHNOLOGIST: Santiago SWAIN
--- NOTE | 2022-01-30 15:04 | P.PN ---
Subjective Date of Service: 01/30/22 Chief Complaint: Shortness of breath Patient states his shortness of breath is better. He is currently tolerating room air with good oxygen saturation. He has been afebrile. Physical Examination - Vital Signs Temperature: 98.8 F Blood Pressure: 154/99 Pulse: 78 Respirations: 16 Pulse Ox (%): 96 - Physical Exam General: Alert, In no apparent distress, Obese HEENT: Mucous membr. moist/pink Neck: JVD not distended Respiratory: Clear to auscultation bilaterally, Diminished Cardiovascular: Regular rate/rhythm, Normal S1 S2, Edema (Bilateral lower extremity edema improving. It is worse on the right) Gastrointestinal: Normal bowel sounds, Soft and benign, Non-distended, No tenderness Musculoskeletal: Swelling (Right leg) Integumentary: Other (Bilateral lower extremity skin xerosis) Neurological: Normal speech, Normal strength at 5/5 x4 extr Lymphatics: Other (Right lower extremity lymphedema) - Studies Microbiology Data (last 24 hrs): 01/29/22 13:00 Nasopharnyx Influenza Type A Antigen Screen - Final 01/29/22 13:00 Nasopharnyx Influenza Type B Antigen Screen - Final Assessment And Plan - Current Problems (Diagnosis) (1) Pneumonia Current Visit: Yes Status: Acute (2) Acute heart failure Current Visit: Yes Status: Acute (3) Acute respiratory failure with hypoxemia Current Visit: Yes Status: Acute (4) Hypertension Current Visit: Yes Status: Acute (5) DM type 2 (diabetes mellitus, type 2) Current Visit: Yes Status: Acute (6) Obesity Current Visit: Yes Status: Acute (7) NSTEMI (non-ST elevated myocardial infarction) Current Visit: Yes Status: Acute (8) Acute systolic heart failure Current Visit: Yes Status: Acute - Plan He is clinically improving Continue IV Lasix. Troponin trended flat. Echocardiogram shows EF of 35 to 40% with moderately depressed LV function New CHF diagnosis Continue full dose Lovenox Monitor intake and output. Cardiology seen patient. Dr. Novoa is following. Continue IV antibiotics for pneumonia Blood cultures: No growth to date. Repeat chest x-ray in a.m. Insulin sliding scale for glucose management.
--- NOTE | 2022-01-30 19:24 | RAD REPORT ---
EXAM DESCRIPTION: RAD - Chest Single View - 01/30/2022 7:13 pm CLINICAL HISTORY: Acute CHF Chest pain. COMPARISON: Chest Single View dated 01/29/2022; Chest For Pe Angio dated 01/29/2022 FINDINGS: Portable technique limits examination quality. Moderate bilateral pulmonary opacities appear slightly improved since the comparative study. The hear t is moderately enlarged. No displaced fractures. IMPRESSION: Slight improvement lung aeration since comparative study.
[2022-01-30] MEDS ORDERED: HYDRALAZINE HCL 20 MG/ML VIAL IV PRN (20:59)
[2022-01-31] MEDS ORDERED: carvediloL 25 MG TAB PO ONE (00:30)
[2022-01-31] MEDS: GABAPENTIN 300 MG CAP PO SCH ×3 (04:38→19:55)
[2022-01-31 04:46] LABS: Absolute Lymphocytes (CBC) 0.8 K/uL (0.7-4.9); Hematocrit 36.5 % (39.6-49.0); Lymphocytes % 15.5 % (15.3-44.8); MCV 88.5 fL (80-100); MPV 9.4 fL (7.6-11.3); RBC Red Blood Cell Count 4.13 M/uL (4.33-5.43)
[2022-01-31 04:54] LABS: Potassium 3.8 mmol/L (3.5-5.1)
[2022-01-31] MEDS: INSULIN -REGULAR HUMAN 50 UNIT/0.5 ML ML SQ SCH ×4 (07:30→21:00)
[2022-01-31] MEDS: HYDRALAZINE HCL 25 MG TABLET PO SCH ×2 (08:40→19:55)
[2022-01-31] MEDS: METFORMIN HCL 500 MG TAB PO SCH (08:41)
[2022-01-31] MEDS: ASPIRIN EC 81 MG TAB PO SCH (08:42)
[2022-01-31] MEDS: AMLODIPINE 5 MG TAB PO SCH (08:42)
[2022-01-31] MEDS: CYANOCOBALAMIN 1,000 MCG TAB PO SCH (08:42)
[2022-01-31] MEDS: carvediloL 25 MG TAB PO SCH ×2 (08:43→19:55)
[2022-01-31] MEDS: ENOXAPARIN 100 MG/ML SYR SQ SCH ×2 (08:44→19:56)
[2022-01-31] MEDS: FUROSEMIDE 40 MG/4 ML VIAL IV SCH ×2 (08:44→16:29)
[2022-01-31] MEDS: CEFTRIAXONE 1,000 MG in NA CHLORIDE 0.9% 50 ML IVPB SCH (08:46)
[2022-01-31] MEDS: lisinopriL 20 MG TAB PO SCH (08:52)
[2022-01-31] MEDS: AZITHROMYCIN IV 500 MG in NA CHLORIDE 0.9% 250 ML IVPB SCH (08:52)
[2022-01-31] MEDS ORDERED: POTASSIUM CL SA 10 MEQ TAB PO ONE (09:00)
[2022-01-31] MEDS ORDERED: lisinopriL 10 MG TAB PO SCH (09:00)
[2022-01-31] MEDS ORDERED: FUROSEMIDE 20 MG TABLET PO SCH (09:00)
--- NOTE | 2022-01-31 12:57 | P.PN ---
Subjective Date of Service: 01/31/22 Chief Complaint: Shortness of breath Patient states he continues to feel better He is currently tolerating room air with good oxygen saturation. He has been afebrile. Lower extremity edema has improved. Physical Examination - Vital Signs Temperature: 97.1 F Blood Pressure: 97/67 Pulse: 74 Respirations: 18 Pulse Ox (%): 98 Assessment And Plan - Current Problems (Diagnosis) (1) Pneumonia Current Visit: Yes Status: Acute (2) Acute heart failure Current Visit: Yes Status: Acute (3) Acute respiratory failure with hypoxemia Current Visit: Yes Status: Acute (4) Hypertension Current Visit: Yes Status: Acute (5) DM type 2 (diabetes mellitus, type 2) Current Visit: Yes Status: Acute (6) Obesity Current Visit: Yes Status: Acute (7) NSTEMI (non-ST elevated myocardial infarction) Current Visit: Yes Status: Acute (8) Acute systolic heart failure Current Visit: Yes Status: Acute - Plan Physical examination General: Alert, In no apparent distress, Obese HEENT: Mucous membr. moist/pink Neck: JVD not distended Respiratory: Clear to auscultation bilaterally, Diminished Cardiovascular: Regular rate/rhythm, Normal S1 S2, Edema (Bilateral lower extremity edema improving. It is worse on the right) Gastrointestinal: Normal bowel sounds, Soft and benign, Non-distended, No tenderness Musculoskeletal: Swelling (Right leg) Integumentary: Other (Bilateral lower extremity skin xerosis) Neurological: Normal speech, Normal strength at 5/5 x4 extr Lymphatics: Other (Right lower extremity lymphedema) Plan: Clinically improving Continue IV Lasix. Echocardiogram shows EF of 35 to 40% with moderately depressed LV function New CHF diagnosis Continue full dose Lovenox for 1 more day. His blood pressure dropped after he was given lisinopril this morning. Continue Coreg. Will reduce lisinopril dose. Monitor intake and output. Cardiology seen patient. Dr. Novoa is following. Blood cultures growing gram-positive cocci. Zithromax changed to IV vancomycin. Continue IV Rocephin Repeat chest x-ray to reassess lung infiltrates Insulin sliding scale for glucose management.
[2022-01-31] MEDS: VANCOMYCIN 1.25 GM in NA CHLORIDE 0.9% 250 ML IVPB SCH (14:33)
--- NOTE | 2022-01-31 14:57 | RAD REPORT ---
EXAM DESCRIPTION: Jennifer Single View01/31/2022 2:17 pm CLINICAL HISTORY: Chest pain COMPARISON: January 30 FINDINGS: Partial resolution in bilateral pulmonary opacities. The heart remains enlarged IMPRESSION: Partial resolution in the bilateral pulmonary opacities
[2022-01-31] MEDS: TRAMADOL HCL 50 MG TAB PO PRN (19:57)
[2022-02-01] MEDS: VANCOMYCIN 1.25 GM in NA CHLORIDE 0.9% 250 ML IVPB SCH ×2 (02:07→13:28)
[2022-02-01] MEDS: TRAMADOL HCL 50 MG TAB PO PRN (02:26)
[2022-02-01] MEDS ORDERED: NA CHLORIDE 0.9% 250 ML ONE (02:27)
[2022-02-01] MEDS: GABAPENTIN 300 MG CAP PO SCH ×3 (04:35→20:47)
[2022-02-01 04:46] LABS: Absolute Lymphocytes (CBC) 1.3 K/uL (0.7-4.9); Hematocrit 33.6 % (39.6-49.0); Lymphocytes % 28.9 % (15.3-44.8); MCV 88.7 fL (80-100); MPV 9.6 fL (7.6-11.3); RBC Red Blood Cell Count 3.79 M/uL (4.33-5.43)
[2022-02-01 05:01] LABS: Potassium 3.3 mmol/L (3.5-5.1)
[2022-02-01] MEDS: AMLODIPINE 5 MG TAB PO SCH (09:00)
[2022-02-01] MEDS: CEFTRIAXONE 1,000 MG in NA CHLORIDE 0.9% 50 ML IVPB SCH (09:00)
[2022-02-01] MEDS: carvediloL 25 MG TAB PO SCH ×2 (09:00→20:47)
[2022-02-01] MEDS: HYDRALAZINE HCL 25 MG TABLET PO SCH (09:00)
[2022-02-01] MEDS: lisinopriL 20 MG TAB PO SCH (09:00)
[2022-02-01] MEDS ORDERED: POTASSIUM CL SA 10 MEQ TAB PO ONE (09:00)
[2022-02-01] MEDS: METFORMIN HCL 500 MG TAB PO SCH (09:46)
[2022-02-01] MEDS: CYANOCOBALAMIN 1,000 MCG TAB PO SCH (09:47)
[2022-02-01] MEDS: ASPIRIN EC 81 MG TAB PO SCH (09:47)
[2022-02-01] MEDS: INSULIN -REGULAR HUMAN 50 UNIT/0.5 ML ML SQ SCH ×4 (09:49→20:49)
[2022-02-01] MEDS: ENOXAPARIN 100 MG/ML SYR SQ SCH ×2 (09:49→20:48)
[2022-02-01] MEDS: FUROSEMIDE 40 MG/4 ML VIAL IV SCH ×2 (09:50→17:11)
[2022-02-01] MEDS ORDERED: levoFLOXacin 750 MG TAB PO SCH (11:00)
--- NOTE | 2022-02-01 11:18 | CON ---
Date of Consultation: 01/30/[address] The patient admitted to Dr. Cramer on 01/29/2022. I saw the patient on 01/30/2022. Reason For Consultation: Shortness of breath. History Of Present Illness: Mr. Chance is a 61-year-old black male with history of diabetes and hype rtension. He came in with dyspnea on exertion that has been steadily getting worse over the last thu or so. He has had some nonproductive cough and fever, but denies any nausea, vomiting, diaphoresi s, PND, orthopnea, pedal edema, palpitations, or syncope. Denied any chest pain. Past Medical History: As stated above. Allergies: NONE. Review of Systems: Negative. Social History: Negative. Family History: Noncontributory. Physical Examination: Vital Signs: Stable. He was afebrile. HEENT: Negative. Neck: Supple with no bruit. Chest: Clear to auscultation and percussion. Cardiac: Revealed a regular rhythm and rate without any murmurs, gallops, or rubs. Abdomen: Benign. Extremities: Revealed no clubbing, cyanosis, or edema. Diagnostic Data: Basically, he had an EKG that showed sinus rhythm with PACs and first-degree AV blo ck. His chest x-ray showed consolidation of the left upper lung field, most likely pneumonia. He waldron d an extremity venous Doppler, which showed no DVT in either leg and he had a CT angiogram of the imtiaz st that revealed no pulmonary emboli, left upper lobe consolidation probably pneumonia, small area of consolidation in the right upper lobe, small bilateral pleural effusions. Echocardiogram showed an ejection fraction of 35% to 40% Impression And Plan: 1.Acute systolic congestive heart failure. 2.Renal insufficiency. 3.Diabetes. 4.Hypertension. The patient needs to be on low-dose beta anuradha, Lasix, Aldactone, TRUDY inhibitor. He can go home whenever it is okay with Dr. Cramer. He will need to have an outpatient appointment and has a Lexiscan and maybe a catheterization down the road. I will discuss the case further with Breana Cramer. MAYURI/TESS Voice ID: [id number] Report ID: [id number]
--- NOTE | 2022-02-01 12:22 | P.PN ---
Subjective Date of Service: 02/01/22 Chief Complaint: Shortness of breath Patient SOB is much better He has been afebrile. His serum creatinine trended up from yesterday. Physical Examination - Vital Signs Temperature: 97.1 F Blood Pressure: 125/91 Pulse: 70 Respirations: 14 Pulse Ox (%): 91 Assessment And Plan - Current Problems (Diagnosis) (1) Pneumonia Current Visit: Yes Status: Acute (2) Acute heart failure Current Visit: Yes Status: Acute (3) Acute respiratory failure with hypoxemia Current Visit: Yes Status: Acute (4) Hypertension Current Visit: Yes Status: Acute (5) DM type 2 (diabetes mellitus, type 2) Current Visit: Yes Status: Acute (6) Obesity Current Visit: Yes Status: Acute (7) NSTEMI (non-ST elevated myocardial infarction) Current Visit: Yes Status: Acute (8) Acute systolic heart failure Current Visit: Yes Status: Acute - Plan Physical examination General: Alert, In no apparent distress, Obese HEENT: Mucous membr. moist/pink Neck: JVD not distended Respiratory: Clear to auscultation bilaterally, Diminished Cardiovascular: Regular rate/rhythm, Normal S1 S2, Edema (Bilateral lower extremity edema improving. It is worse on the right) Gastrointestinal: Normal bowel sounds, Soft and benign, Non-distended, No tenderness Musculoskeletal: Swelling (Right leg) Integumentary: Other (Bilateral lower extremity skin xerosis) Neurological: Normal speech, Normal strength at 5/5 x4 extr Lymphatics: Other (Right lower extremity lymphedema) Plan: Clinically improving. Repeat chest x-ray shows significant improvement in infiltrate suggesting that the lung infiltrate is likely secondary to pulmonary edema Decreased Lasix to 40 mg p.o. daily due to rising creatinine. Echocardiogram shows EF of 35 to 40% with moderately depressed LV function New CHF diagnosis Discontinue Lovenox. His blood pressure dropped after he was given lisinopril this morning. Continue Coreg. Lisinopril dose reduced to 20 mg daily. Aldactone added, amlodipine and hydralazine discontinued. Continue to monitor blood pressure. Monitor intake and output. Monitor renal function. Waiting for serum creatinine level to stabilize prior to discharge. Dr. Novoa input appreciated. He will follow with patient in the office for arrangement for stress test and possibly cardiac cath along the way. Blood cultures growing coagulase-negative staph. This is likely a skin contaminant. Repeat blood cultures pending. Discontinue vancomycin. Antibiotics changed to oral Levaquin. Insulin sliding scale for glucose management. Continue metformin.
[2022-02-01 13:24] LABS: Magnesium 1.9 mg/dL (1.8-2.4); Phosphorus 3.5 mg/dL (2.5-4.9)
[2022-02-01] MEDS: SPIRONOLACTONE 25 MG TABLET PO SCH (13:33)
[2022-02-02] MEDS: VANCOMYCIN 1.25 GM in NA CHLORIDE 0.9% 250 ML IVPB SCH (03:03)
[2022-02-02] MEDS: GABAPENTIN 300 MG CAP PO SCH ×3 (03:04→20:36)
[2022-02-02 03:26] LABS: Hematocrit 34.5 % (39.6-49.0); Lymphocytes % 26.8 % (15.3-44.8); MCV 89.9 fL (80-100); RBC Red Blood Cell Count 3.83 M/uL (4.33-5.43)
[2022-02-02 03:47] LABS: Potassium 3.8 mmol/L (3.5-5.1)
[2022-02-02] MEDS ORDERED: POTASSIUM CL SA 10 MEQ TAB PO ONE (09:00)
[2022-02-02] MEDS: FUROSEMIDE 40 MG/4 ML VIAL IV SCH (09:00)
[2022-02-02] MEDS: ENOXAPARIN 100 MG/ML SYR SQ SCH ×2 (09:10→20:37)
[2022-02-02] MEDS: CYANOCOBALAMIN 1,000 MCG TAB PO SCH (09:11)
[2022-02-02] MEDS: METFORMIN HCL 500 MG TAB PO SCH (09:11)
[2022-02-02] MEDS: SPIRONOLACTONE 25 MG TABLET PO SCH (09:12)
[2022-02-02] MEDS: ASPIRIN EC 81 MG TAB PO SCH (09:12)
[2022-02-02] MEDS: carvediloL 25 MG TAB PO SCH ×2 (09:12→20:37)
[2022-02-02] MEDS: lisinopriL 20 MG TAB PO SCH (09:12)
[2022-02-02] MEDS: INSULIN -REGULAR HUMAN 50 UNIT/0.5 ML ML SQ SCH ×4 (09:13→21:00)
[2022-02-02] MEDS: FUROSEMIDE 40 MG TABLET PO SCH (09:28)
--- NOTE | 2022-02-02 14:50 | P.CNS ---
Date of Consult: 02/02/22 Reason for Consult: JUAN/ CKD Requesting Physician: carlos winter Chief Complaint: Shortness of breath History of Present Illness: 61-year-old gentleman with a history of hypertension, chronic lower extremity lymphedema and diabetes mellitus was brought to the emergency department with a complaint of progressive shortness of breath. Patient reports progressive shortness of breath over the past 1 week. He progressed from shortness of breath with exertion to shortness of breath at rest. He was wheeled to the emergency department in a wheelchair because he could not walk due to respiratory distress. Work-up in the emergency department with chest x-ray and CTA thorax demonstrated bilateral consolidation, worse on the left. He has no leukocytosis, BNP and troponin elevated. Patient was requiring oxygen to maintain good oxygen saturation. He has chronic bilateral lymphedema worse on the right. Patient symptoms related to congestive heart failure versus pneumonia. He denied any history of heart disease or heart failure. EKG shows sinus rhythm. Patient is hospitalized for further management. He reports right flank pain with possible constipation. +Flatus 01/29 14:54 This 61 yrs old Black Male presents to ER via Wheelchair with complaints of Shortness dennys Of Breath. 14:54 The patient has shortness of breath at rest, with light activity. Onset: The dennys symptoms/episode began/occurred 10 day(s) ago. Duration: The symptoms are continuous, and are steadily getting worse. The patient's shortness of breath is aggravated by coughing, exertion, light activity, supine position, walking, is alleviated by rest, application of supplemental oxygen. Associated signs and symptoms: Pertinent positives: non-productive cough, fever. Severity of symptoms: At their worst the symptoms were moderate in the emergency department the symptoms have improved mildly. The patient has not experienced similar symptoms in the past. Allergies No Known Allergies Allergy (Unverified 02/05/18 17:52) Home medications list reviewed: Yes Home Medications: Aspirin [Aspirin EC 81 MG] 1 tab PO DAILY 01/31/22 Cyanocobalamin (Vitamin B-12) [Vitamin B-12] 2,500 mcg PO DAILY 01/31/22 Gabapentin 300 mg PO Q8H 01/31/22 Metformin HCl 1,000 mg PO DAILY 01/31/22 carvediloL [Carvedilol] 25 mg PO BID 01/31/22 traMADol HCL [Ultram*] 50 mg PO Q12HR PRN 01/31/22 Furosemide [Lasix] 40 mg PO DAILY #30 tab 02/01/22 Spironolactone [Aldactone*] 25 mg PO DAILY #30 tab 02/01/22 levoFLOXacin [Levaquin*] 750 mg PO Q48H #3 tab 02/01/22 lisinopriL [Prinivil*] 20 mg PO DAILY #30 tab 02/01/22 - Past Medical/Surgical History -: Hypertension -: Diabetes -: Chronic lymphedema - Family History Mother Medical History: Diabetes - Social History Alcohol use: Yes CD- Drugs: No Place of Residence: Home Review of Systems 10-point ROS is otherwise unremarkable Gastrointestinal: Abdominal Pain Physical Examination Temp Pulse Resp BP Pulse Ox 97.8 F 75 16 119/94 H 100 02/02/22 12:00 02/02/22 12:00 02/02/22 12:00 02/02/22 12:00 02/02/22 12:00 General: In no apparent distress, Oriented x3, Cooperative HEENT: Atraumatic Neck: Supple Respiratory: Normal air movement Cardiovascular: No edema, Regular rate/rhythm Gastrointestinal: No guarding, Tenderness Musculoskeletal: No clubbing, No contractures Integumentary: No rashes, No cyanosis Neurological: Normal speech Blood work reviewed in the chart. Imagings Data: EXAM DESCRIPTION: Jennifer Single View01/31/2022 2:17 pm CLINICAL HISTORY: Chest pain COMPARISON: January 30 FINDINGS: Partial resolution in bilateral pulmonary opacities. The heart remains enlarged IMPRESSION: Partial resolution in the bilateral pulmonary opacities EXAM DESCRIPTION: CT - Chest For Pe Angio - 01/29/2022 3:55 pm CLINICAL HISTORY: Dyspnea COMPARISON: No comparisons TECHNIQUE: Dynamically enhanced 3 mm thick images of the chest were obtained during administration of approximately 150mL Isovue 370 IV contrast. Coronal and oblique MIP reconstruction images were generated and reviewed. Exam utilizes a protocol to evaluate the pulmonary arterial tree. All CT scans are performed using dose optimization technique as appropriate and may include automated exposure control or mA/KV adjustment according to patient size. FINDINGS: No pulmonary emboli are identified. The aorta as imaged shows no acute or suspicious finding. Mild aortic tortuosity noted. No pericardial thickening heart size is prominent. No pericardial thickening or effusion. Moderately large area of consolidation is present in the mid and upper portion of the left upper lobe. Patchy areas of consolidation are present in the central aspect of the right upper lobe. In the right apex there is a 2 centimeter rounded area of opacification that is probably acutely consolidated parenchyma as well. Minimal right lower lobe posterior gutter atelectasis changes. Small bilateral pleural effusions are present. No pleural based mass or pneumothorax. No mediastinal or hilar suspicious masses. No chest wall masses or abnormal axillary lymphadenopathy. IMPRESSION: No pulmonary emboli identified. Moderate area of consolidation left upper lobe with smaller areas of consolidation in the right upper lobe. Upper lobe findings are more typical for bilateral pneumonia than a pulmonary edema process from failure or volume overload. Small bilateral pleural effusions. EXAM DESCRIPTION: US - Extrem Venous W Compress Fausto - 01/29/2022 2:56 pm CLINICAL HISTORY: shortness of breath COMPARISON: None. TECHNIQUE: Real-time sonographic evaluation of the bilateral lower extremity common femoral, superficial femoral, popliteal and posterior tibial veins was performed. FINDINGS: Normal compressibility, flow augmentation, phasic flow and spontaneous flow are identified in the left and right lower extremity common femoral, superficial femoral, popliteal and posterior tibial veins. No intraluminal filling defects seen. IMPRESSION: No DVT in either lower extremity. LEFT VENTRICULAR WALL MOTION: MODERATE GLOBAL HYPOKINESIS. DOPPLER/COLOR FLOW: SEE BELOW COMMENTS: MODERATELY DEPRESSED LEFT VENTRICULAR EJECTION FRACTION 35-40%. MODERATE GLOBAL HYPOKINESIS. MODERATE CONCENTRIC LEFT VENTRICULAR HYPERTROPHY. MILD MITRAL, AORTIC AND TRICUSPID REGURGITATION. Conclusions/Impression: JUAN in the setting of IV contrast CKD II with proteinuria -No NSAIDs -Continue the current diuretics and anti-hypertensives since the renal fx is slowly improving Hypokalemia -Replete prn -Continue Lisinopril and Spironolactone Hypomagnesemia -Replete prn HTN with CKD/ CHF -Continue Coreg -Continue Lisinopril Systolic CHF, A/C LVEF 35-40% -Low sodium diet -Continue furosemide and spironolactone DM II with Hyperglycemia, CKD, and Polyneuropathy A1C >14 -RISS -Start Lantus 6 units qhs; titrate as needed -Continue Gabapentin -Hold Metformin in the setting of JUAN Moderate malnutrition -Encourage nutrition Anemia in chronic illness -Monitor H&H Constipation? -Dulcolax AR X1 dose now -MagOx X1 dose at bedtime Thank you kindly for the referral.
[2022-02-02] MEDS: TRAMADOL HCL 50 MG TAB PO PRN ×2 (15:13→20:36)
[2022-02-02] MEDS ORDERED: BISACODYL 10 MG RECTAL SUPP PR ONE (15:14)
--- NOTE | 2022-02-02 15:29 | P.PN ---
Subjective Date of Service: 02/02/22 Chief Complaint: Shortness of breath Patient states he continues to feel better. Serum creatinine trended down from yesterday. Physical Examination - Vital Signs Temperature: 97.8 F Blood Pressure: 119/94 Pulse: 75 Respirations: 16 Pulse Ox (%): 100 Assessment And Plan - Current Problems (Diagnosis) (1) Pneumonia Current Visit: Yes Status: Acute (2) Acute heart failure Current Visit: Yes Status: Acute (3) Acute respiratory failure with hypoxemia Current Visit: Yes Status: Acute (4) Hypertension Current Visit: Yes Status: Acute (5) DM type 2 (diabetes mellitus, type 2) Current Visit: Yes Status: Acute (6) Obesity Current Visit: Yes Status: Acute (7) NSTEMI (non-ST elevated myocardial infarction) Current Visit: Yes Status: Acute (8) Acute systolic heart failure Current Visit: Yes Status: Acute (9) Acute renal failure Current Visit: Yes Status: Acute - Plan Physical examination General: Alert, In no apparent distress, Obese HEENT: Mucous membr. moist/pink Neck: JVD not distended Respiratory: Clear to auscultation bilaterally, Diminished Cardiovascular: Regular rate/rhythm, Normal S1 S2, Edema (Bilateral lower extremity edema improving. It is worse on the right) Gastrointestinal: Normal bowel sounds, Soft and benign, Non-distended, No tenderness Musculoskeletal: Swelling-Right leg Integumentary: Other (Bilateral lower extremity skin xerosis) Neurological: Normal speech, Normal strength at 5/5 x4 extr Lymphatics: Other (Right lower extremity lymphedema) Plan: Clinically improving. Repeat chest x-ray shows significant improvement in infiltrate suggesting that the lung infiltrate is likely secondary to pulmonary edema Decreased Lasix to 40 mg p.o. daily due to rising creatinine. Echocardiogram shows EF of 35 to 40% with moderately depressed LV function New CHF diagnosis His blood pressure dropped after he was given lisinopril this morning. Continue Coreg. Lisinopril dose reduced to 20 mg daily. Aldactone added, amlodipine and hydralazine discontinued. Titrate Coreg for blood pressure control Monitor intake and output. Serum creatinine is trending. Nephrology consulted. Dr. Biswas input appreciated. Monitor renal function. Waiting for serum creatinine level to stabilize prior to discharge. Dr. Novoa input appreciated. He will follow with patient in the office for arrangement for stress test and possibly cardiac cath along the way. Blood cultures growing coagulase-negative staph. This is likely a skin contaminant. Repeat blood cultures shows no growth. Continue oral Levaquin. Insulin sliding scale for glucose management. Continue metformin. Monitor renal function. Possible discharge in a.m. if renal function shows progressive improvement.
[2022-02-02] MEDS ORDERED: INSULIN GLARGINE 100 UNIT/ML SQ SCH (21:00)
[2022-02-02] MEDS ORDERED: MAGNESIUM OXIDE 400 MG TAB PO SCH (21:00)
[2022-02-03] MEDS: GABAPENTIN 300 MG CAP PO SCH (05:00)
[2022-02-03 06:04] LABS: Hematocrit 34.2 % (39.6-49.0); Lymphocytes % 20.2 % (15.3-44.8); MCV 89.6 fL (80-100); MPV 9.7 fL (7.6-11.3); RBC Red Blood Cell Count 3.81 M/uL (4.33-5.43)
[2022-02-03 06:10] LABS: Specific Gravity 1.025 (1.005-1.030); Urine Bilirubin Negative (Negative); Urine Blood Negative (Negative); Urine Clarity Clear (Clear); Urine Color Yellow (Yellow); Urine Glucose 1+ (Negative); Urine Protein 2+ (Negative); Urine Urobilinogen 0.2 mg/dL (0.2-1.0); Urine pH 5.5 (5.0-7.0)
[2022-02-03 06:11] LABS: UR PROTEIN 84.1 mg/dL (<11.9); Urine Protein/Creatinine Ratio 0.5 ratio (<0.15)
[2022-02-03 06:17] LABS: Urine Bacteria <20 /HPF (<20)
[2022-02-03 06:18] LABS: Urine RBC None Seen /HPF (None Seen)
[2022-02-03 06:22] LABS: Magnesium 1.9 mg/dL (1.8-2.4); Phosphorus 3.4 mg/dL (2.5-4.9); Uric Acid 5.8 mg/dL (3.5-7.2)
[2022-02-03] MEDS: INSULIN -REGULAR HUMAN 50 UNIT/0.5 ML ML SQ SCH (07:30)
[2022-02-03 08:21] VITALS: BP 127/82; TEMP 96.9
[2022-02-03] MEDS: ENOXAPARIN 100 MG/ML SYR SQ SCH (08:27)
[2022-02-03] MEDS: SPIRONOLACTONE 25 MG TABLET PO SCH (08:28)
[2022-02-03] MEDS: CYANOCOBALAMIN 1,000 MCG TAB PO SCH (08:28)
[2022-02-03] MEDS: FUROSEMIDE 40 MG TABLET PO SCH (08:29)
[2022-02-03] MEDS: lisinopriL 20 MG TAB PO SCH (08:29)
[2022-02-03] MEDS: ASPIRIN EC 81 MG TAB PO SCH (08:29)
[2022-02-03] MEDS: TRAMADOL HCL 50 MG TAB PO PRN (08:30)
[2022-02-03] MEDS: carvediloL 25 MG TAB PO SCH (08:35)
--- NOTE | 2022-02-03 08:50 | P.DS ---
Admission Date: 01/29/22 Discharge Date: 02/03/22 Disposition: ROUTINE DISCHARGE Discharge Condition: FAIR Reason for Admission: Shortness of breath - Problems (1) Pneumonia Status: Acute (2) Acute heart failure Status: Acute (3) Acute respiratory failure with hypoxemia Status: Acute (4) Hypertension Status: Acute (5) DM type 2 (diabetes mellitus, type 2) Status: Acute (6) Obesity Status: Acute (7) NSTEMI (non-ST elevated myocardial infarction) Status: Acute (8) Acute systolic heart failure Status: Acute (9) Acute renal failure Status: Acute Brief History of Present Illness: 61-year-old gentleman with a history of hypertension, chronic lower extremity lymphedema and diabetes mellitus was brought to the emergency department with a complaint of progressive shortness of breath. Patient reports progressive shortness of breath over the past 1 week. He progressed from shortness of breath with exertion to shortness of breath at rest. He was wheeled to the emergency department in a wheelchair because he could not walk due to respirato ry distress. Work-up in the emergency department with chest x-ray and CTA thorax demonstrated bilateral consolidation, worse on the left. He has no leukocytosis, BNP and troponin elevated. Patient was requiring oxygen to maintain good oxygen saturation. He has chronic bilateral lymphedema worse on the right. Patient symptoms related to congestive heart failure versus pneumonia. He denied any history of heart disease or heart failure. EKG shows sinus rhythm. Patient is hospitalized for further management. Hospital Course: Patient admitted to the medical floor and treated for possible pneumonia and acute CHF-antibiotics for pneumonia and IV Lasix for vascular congestion. Troponin was mildly elevated but trended flat. Echocardiogram was done which demonstrated EF of 35 to 40% with moderately depressed LV function. Patient respiratory status improved with treatment. Repeat chest x-ray showed significant rapid improvement in infiltrate suggesting that the lung infiltrate is likely secondary to pulmonary edema. Patient serum creatinine started to trend up. IV Lasix transition to oral Lasix New CHF diagnosis His blood pressure dropped after he was given lisinopril this morning. Noted patient is on other multiple antihypertensive Continued Coreg. Lisinopril dose reduced to 20 mg daily. Aldactone added, amlodipine and hydralazine discontinued, and Coreg titrated for blood pressure control Nephrology consulted, patient seen by Dr. Biswas. Serum creatinine trended down. Patient seen by Dr. Novoa. He will follow with patient in the office for arrangement for stress test and possibly cardiac cath along the way. Blood cultures growing coagulase-negative staph. This is likely a skin contaminant. Repeat blood cultures showed no growth. IV antibiotics transition to oral Levaquin to continue treatment for possible pneumonia. Glucose managed with insulin sliding scale and metformin. Patient clinically improved with treatment and stable for discharge today. Vital Signs/Physical Exam: Temp Pulse Resp BP Pulse Ox 96.9 F 70 18 127/82 96 02/03/22 08:00 02/03/22 08:35 02/03/22 08:00 02/03/22 08:35 02/03/22 08:00 General: Alert, In no apparent distress, Oriented x3 HEENT: Mucous membr. moist/pink Neck: JVD not distended Respiratory: Clear to auscultation bilaterally, Normal air movement Cardiovascular: No edema, Regular rate/rhythm, Normal S1 S2 Gastrointestinal: Normal bowel sounds, Soft and benign, Non-distended, No tenderness Musculoskeletal: Swelling (Right lower extremity) Integumentary: Other (Bilateral lower extremity xerosis.) Neurological: Normal strength at 5/5 x4 extr, Cranial nerves 3-12 intact Laboratory Data at Discharge: WBC 5.0 K/uL (4.3-10.9) D 02/03/22 05:31 Hgb 11.4 g/dL (13.6-17.9) L 02/03/22 05:31 Hct 34.2 % (39.6-49.0) L 02/03/22 05:31 Plt Count 236 K/uL (152-406) 02/03/22 05:31 PT 11.6 SECONDS (9.5-12.5) 01/29/22 13:26 INR 1.05 01/29/22 13:26 Sodium 139 mmol/L (136-145) 02/03/22 05:31 Potassium 4.0 mmol/L (3.5-5.1) 02/03/22 05:31 BUN 21 mg/dL (7-18) H 02/03/22 05:31 Creatinine 1.26 mg/dL (0.55-1.3) 02/03/22 05:31 Glucose 147 mg/dL (74-106) H 02/03/22 05:31 Uric Acid 5.8 mg/dL (3.5-7.2) 02/03/22 05:31 Phosphorus 3.4 mg/dL (2.5-4.9) 02/03/22 05:31 Magnesium 1.9 mg/dL (1.8-2.4) 02/03/22 05:31 Total Bilirubin 0.6 mg/dL (0.2-1.0) 01/30/22 03:13 AST 15 U/L (15-37) 01/30/22 03:13 ALT 39 U/L (12-78) 01/30/22 03:13 Alkaline Phosphatase 88 U/L (45-117) 01/30/22 03:13 Triglycerides 69 mg/dL (<150) 01/30/22 03:13 Cholesterol 183 mg/dL (<200) 01/30/22 03:13 HDL Cholesterol 66 mg/dL (40-60) H 01/30/22 03:13 Cholesterol/HDL Ratio 2.77 01/30/22 03:13 Lipase 538 U/L (73-393) H 01/29/22 13:26 Home Medications: Aspirin [Aspirin EC 81 MG] 1 tab PO DAILY 01/31/22 Cyanocobalamin (Vitamin B-12) [Vitamin B-12] 2,500 mcg PO DAILY 01/31/22 Gabapentin 300 mg PO Q8H 01/31/22 Metformin HCl 1,000 mg PO DAILY 01/31/22 carvediloL [Carvedilol] 25 mg PO BID 01/31/22 traMADol HCL [Ultram*] 50 mg PO Q12HR PRN 01/31/22 Furosemide [Lasix] 40 mg PO DAILY #30 tab 02/01/22 Spironolactone [Aldactone*] 25 mg PO DAILY #30 tab 02/01/22 levoFLOXacin [Levaquin*] 750 mg PO Q48H #3 tab 02/01/22 lisinopriL [Prinivil*] 20 mg PO DAILY #30 tab 02/01/22 New Medications: Spironolactone [Aldactone*] 25 mg PO DAILY #30 tab Furosemide [Lasix] 40 mg PO DAILY #30 tab levoFLOXacin [Levaquin*] 750 mg PO Q48H #3 tab lisinopriL [Prinivil*] 20 mg PO DAILY #30 tab Diet: AHA Activity: Ad liliane Followup: Emmanuel Novoa MD [ACTIVE - CAN ADMIT] - 1 Week (Please call office for arrangement for stress test.) Donato Tesfaye MD [ACTIVE - CAN ADMIT] - (Call to schedule appointment) Time spent managing pt's care (in minutes): 37
[2022-02-03 09:34] VITALS: O2SAT 100
--- NOTE | 2022-02-03 20:43 | P.PN ---
Date of Service: 02/03/22 Vital Signs Temp Pulse Resp BP Pulse Ox 96.9 F 70 18 127/82 96 02/03/22 08:00 02/03/22 08:35 02/03/22 08:00 02/03/22 08:35 02/03/22 08:00 Microbiology Results 01/29/22 13:26 Blood - Blood Aerobic Blood Culture - Final No growth in 5 days. 01/29/22 13:26 Blood - Blood Anaerobic Blood Culture - Final No growth in 5 days. 01/29/22 13:00 Nasopharnyx Influenza Type A Antigen Screen - Final 01/29/22 13:00 Nasopharnyx Influenza Type B Antigen Screen - Final Assessment/ Plan: Nephrology No dyspnea No chest pain Back pain worse on the right No acute events overnight Vitals, medications, blood work and imaging reviewed in the chart. General: In no apparent distress, Oriented x3, Cooperative HEENT: Atraumatic Neck: Supple Respiratory: Normal air movement Cardiovascular: LE Edema 1+, Regular rate/rhythm Gastrointestinal: No guarding, Tenderness Musculoskeletal: No clubbing, No contractures Integumentary: No rashes, No cyanosis Neurological: Normal speech Blood work reviewed in the chart. Imagings Data: [facility] CLINICAL HISTORY: Chest pain COMPARISON: January 30 FINDINGS: Partial resolution in bilateral pulmonary opacities. The heart remains enlarged IMPRESSION: Partial resolution in the bilateral pulmonary opacities EXAM DESCRIPTION: CT - Chest For Pe Angio - 01/29/2022 3:55 pm CLINICAL HISTORY: Dyspnea COMPARISON: No comparisons TECHNIQUE: Dynamically enhanced 3 mm thick images of the chest were obtained during administration of approximately 150mL Isovue 370 IV contrast. Coronal and oblique MIP reconstruction images were generated and reviewed. Exam utilizes a protocol to evaluate the pulmonary arterial tree. All CT scans are performed using dose optimization technique as appropriate and may include automated exposure control or mA/KV adjustment according to patient size. FINDINGS: No pulmonary emboli are identified. The aorta as imaged shows no acute or suspicious finding. Mild aortic tortuosity noted. No pericardial thickening heart size is prominent. No pericardial thickening or effusion. Moderately large area of consolidation is present in the mid and upper portion of the left upper lobe. Patchy areas of consolidation are present in the central aspect of the right upper lobe. In the right apex there is a 2 centimeter rounded area of opacification that is probably acutely consolidated parenchyma as well. Minimal right lower lobe posterior gutter atelectasis changes. Small bilateral pleural effusions are present. No pleural based mass or pneumothorax. No mediastinal or hilar suspicious masses. No chest wall masses or abnormal axillary lymphadenopathy. IMPRESSION: No pulmonary emboli identified. Moderate area of consolidation left upper lobe with smaller areas of consolidation in the right upper lobe. Upper lobe findings are more typical for bilateral pneumonia than a pulmonary edema process from failure or volume overload. Small bilateral pleural effusions. EXAM DESCRIPTION: US - Extrem Venous W Compress Fausto - 01/29/2022 2:56 pm CLINICAL HISTORY: shortness of breath COMPARISON: None. TECHNIQUE: Real-time sonographic evaluation of the bilateral lower extremity common femoral, superficial femoral, popliteal and posterior tibial veins was performed. FINDINGS: Normal compressibility, flow augmentation, phasic flow and spontaneous flow are identified in the left and right lower extremity common femoral, superficial femoral, popliteal and posterior tibial veins. No intraluminal filling defects seen. IMPRESSION: No DVT in either lower extremity. LEFT VENTRICULAR WALL MOTION: MODERATE GLOBAL HYPOKINESIS. DOPPLER/COLOR FLOW: SEE BELOW COMMENTS: MODERATELY DEPRESSED LEFT VENTRICULAR EJECTION FRACTION 35-40%. MODERATE GLOBAL HYPOKINESIS. MODERATE CONCENTRIC LEFT VENTRICULAR HYPERTROPHY. MILD MITRAL, AORTIC AND TRICUSPID REGURGITATION. Conclusions/Impression: JUAN in the setting of IV contrast CKD II with proteinuria -No NSAIDs -Continue the current diuretics and anti-hypertensives Hypokalemia -Replete prn -Continue Lisinopril and Spironolactone Hypomagnesemia -Replete prn HTN with CKD/ CHF -Continue Coreg -Continue Lisinopril Systolic CHF, A/C LVEF 35-40% -Low sodium diet -Continue furosemide and spironolactone DM II with Hyperglycemia, CKD, and Polyneuropathy A1C >14 -RISS -Continue Lantus 6 units qhs; titrate as needed -Continue Gabapentin -Hold Metformin in the setting of JUAN Moderate malnutrition -Encourage nutrition Anemia in chronic illness -Monitor H&H Constipation? -Recommend Colace Case reviewed with Dr. Cramer
--- OUTSIDE RECORDS SUMMARY | 2022-02-06 02:41 | XMS REPORT | Continuity of Care Document ---
:1960 Author Organization [facility] t Address [address] [place] [address] Care Team Providers Name Role Phone ALISON Attending Clinician Unavailable MOSES Attending Clinician Unavailable Problems Condition Condition Condition Status Onset Resolution Last Treating Co mments Source Name Details Category Date Date Treatment Clinician Date Closed Closed Problem Active [facility] displaced displaced Phys ici segmental segmental ans fracture fracture of shaft of shaft of right of right tibia tibia Allergies, Adverse Reactions, Alerts This patient has no known allergies or adverse reactions. Medications Ordered Filled Start Stop Current Ordering Indication Dosage Frequency Signature Comments Components Source Medication Medication Date Date Medication? Clinician (SIG) Name Name traMADol traMADol 2017-07 Yes CRYSTAL ROSAS i-ii po q [place] HCl - 50 MG HCl - 50 MG 0-09 M.D. 12H prn Physici Oral Tablet Oral Tablet 00:00: pain ans 00 Gabapentin Gabapentin 2017-07 Yes CRYSTAL ROSAS i po q 8H UT 300 MG Oral 300 MG Oral 0-09 M.D. P hysici Capsule Capsule 00:00: ans 00 Vitamin D Vitamin D 2018-0 Yes CRYSTAL ROSAS TAKE 1 UT (Ergocalcif (Ergocalcif 9-11 M.D. CAPSULE Physici zack) [id number] zack) [id number] 00:00: WEEKLY. ans UNIT Oral UNIT Oral 00 Capsule Capsule traMADol traMADol 2018 Yes CRYSTAL ROSAS i po q UT HCl - 50 MG HCl - 50 MG 8-07 M.D. 6-8H PRN Physici Oral Tablet Oral Tablet 00:00: Pain ans 00 Procedures Procedure Date / Time Performed Performing Clinician Heather e [U] XRAY TIBIA FIBULA 2 VWS 2019-01-14 00:00:00 [facility] RIGHT [id number] US Extremity lower venous 2018-09-21 00:00:00 [facility] Doppler Unilat [id number] [U] XRAY TIBIA FIBULA 2 VWS 2018-09-10 00:00:00 [facility] RIGHT [id number] [U] XRAY TIBIA FIBULA 2 [facility] 2018-08-04 00:00:00 [facility] RIGHT [id number] [U] XRAY TIBIA FIBULA 2 IRA [facility] 2018-05-28 00:00:00 [facility] RIGHT [id number] [U] XRAY TIBIA FIBULA 2 IRA [facility] 2018-04-22 00:00:00 [facility] RIGHT [id number] [U] XRAY TIBIA FIBULA 2 [facility] 2018-03-16 00:00:00 [facility] RIGHT [id number] Encounters Start End Encounter Admission Attending Care Care Encounter Source Date/Time Date/Time Type Type Clinicians Facility Department ID 2019-01-25 2019-01-25 CRYSTAL Carpenter [facility] Orthopedics [id number] [place] 11:15:00 11:15:00 t; Peter ROSAS Trauma Physi marvin ROJAS M.D. [facility] 2018-09-21 2018-09-21 AppointCRYSTAL Broderick [facility] Orthopedics [id number] [place] 12:00:00 12:00:00 t; Peter ROSAS Physi marvin ROJAS M.D. [facility] 2018-08-10 2018-08-10 Appointanna LOPES [facility] Orthopedics [id number] [place] 12:00:00 12:00:00 t; TRAVIS LOPES P.A. Physici JEANA, ans P.A. 2018-06-08 2018-06-08 AppointCRYSTAL Broderick [facility] Orthopedics [id number] [place] 12:00:00 12:00:00 t; Peter ROSAS Physi marvin ROJAS M.D. ans 2018-04-27 2018-04-27 Appointanna LOPES [facility] Orthopedics [id number] [place] 12:15:00 12:15:00 t; TRAVIS LOPES P.A. Physici JEANA, ans P.A. 2018-03-30 2018-03-30 Appointanna LOPES [facility] Orthopedics [id number] [place] 12:15:00 12:15:00 t; TRAVIS LOPES P.A. Physici JEANA, ans P.A. 2018-02-23 2018-02-23 Appointanna LOPES [facility] [id number] [place] 12:15:00 12:15:00 t; TRAVIS LOPES P.A. Physici JEANA, ans P.A. Results Test Description Test Time Test Comments Results Result [facility] e Comments [U] XRAY TIBIA 2018-09-21 Images [facility] ans FIBULA 2 VWS RIGHT 10:44:00 acquired, not [id number] reported on this accession number. [U] XRAY TIBIA 2018-04-27 [facility] FIBULA 2 VWS RIGHT 11:12:00 acquired, not [id number] reported on this accession number. [U] XRAY TIBIA 2018-03-30 [facility] FIBULA 2 VWS RIGHT 11:24:00 acquired, not [id number] reported on this accession number.
== END 2022-02-03 11:50 | disposition home or self-care (01) | DRG 193 ==
LOC: ER 12:26 → ERHOLD 17:34 → 4TH 19:15 → 2ND 01-31 14:53
PROVIDERS: ADMIT Internal Medicine; ATTEND Internal Medicine
DX: J18.9 Pneumonia, unspecified organism (principal); J96.01 Acute respiratory failure with hypoxia; I50.21 Acute systolic (congestive) heart failure; I13.0 Hypertensive heart and chronic kidney disease with heart failure and stage 1 through stage 4 chronic kidney disease, or unspecified chronic kidney disease; N17.9 Acute kidney failure, unspecified; E66.9 Obesity, unspecified; Z68.32 Body mass index [BMI] 32.0-32.9, adult; E11.22 Type 2 diabetes mellitus with diabetic chronic kidney disease; E11.65 Type 2 diabetes mellitus with hyperglycemia; N18.2 Chronic kidney disease, stage 2 (mild); E87.6 Hypokalemia; E83.42 Hypomagnesemia; E11.42 Type 2 diabetes mellitus with diabetic polyneuropathy; I44.0 Atrioventricular block, first degree; D64.9 Anemia, unspecified; K59.00 Constipation, unspecified; I89.0 Lymphedema, not elsewhere classified; Z20.822 Contact with and (suspected) exposure to COVID-19
CPT/HCPCS: 36415; 71045; 71275; 80048; 80053; 80061; 80076; 81001; 81003; 81015; 82570; 82805; 82947; 83036; 83605; 83690; 83735; 83880; 84100; 84132; 84156; 84443; 84484; 84550; 85025; 85379; 85610; 87040; 87205; 87804; 93005; 93306; 93970; 94760; 96361; 96365; 96367; 96372; 99285; J0360; J0456; J0696; J1650; J1815; J1940; J3370; J3475; J7030; J7040; J7050; Q9967; U0003

== ENCOUNTER 2022-03-31 21:29 | Inpatient (IN) | payer OTHER, SELFPAY ==
--- OUTSIDE RECORDS SUMMARY | 2022-03-31 21:33 | XMS REPORT | Continuity of Care Document ---
:1960 Author Organization [facility] t Address [address] [place] [address] Care Team Providers Name Role Phone CRYSTAL ROSAS M.D. Attending Clinician Unavailable Crystal Rosas Attending Clinician TRAVIS LOPES P.A. Attending Clinician Unavailable Albaro Nunes Attending Clinician Crystal Rosas Admitting Clinician Problems Condition Condition Condition Status Onset Resolution Last Treating Co mments Source Name Details Category Date Date Treatment Clinician Date S82.261A - S82.261A Diagnosis Active 2018-10-27 Memoria DISPLACED - 3-06 08:31:00 l SEGMENTAL DISPLACED 00:01: Herm nitin FRACTURE SEGMENTAL 00 FRACTURE Active 09/22/2018 GAVI Tobias CLOSED FX CLOSED FX Diagnosis Active 2018-02-10 Memoria OF RT OF RT 02-05 11:26:00 l FIBULA AND FIBULA AND 00:00: He bernardoann TIBIA TIBIA 00 Active 02/05/2018 [facility] NICOLE/FIB FX NICOLE/FIB Diagnosis Active 2018-02-05 Memoria TIRE FX TIRE 02-05 23:21:00 l Active 00:00: Ansley 02/05/2018 00 [facility] Acute Acute Problem 2018-08-30 Memor ia posthemorr posthemorr 13:59:27 l irene Tobias anemia anemia 08/30/2018 [facility] Other Other Problem 2018-08-30 Memor ia primary primary 13:59:27 l thrombophi thrombophi He arleen yahir yahir 08/30/2018 [facility] Crushing Crushing Problem 2018-08-30 Memoria injury of injury of 13:59:27 l right right Jatinder ankle, ankle, initial initial encounter encounter 08/30/2018 [facility] Caught, Caught, Problem 2018-08-30 Nd moria crushed, crushed, 13:59:27 l jammed, or jammed, or He bernardonitin pinched pinched between between moving moving objects, objects, initial initial encounter encounter 08/30/2018 [facility] Crushing Crushing Problem 2018-08-30 Memoria injury of injury of 13:59:27 l unspecifie unspecifie He rmann d right d right toe(s), toe(s), initial initial encounter encounter 08/30/2018 [facility] Unspecifie Unspecifi Problem 2018-08-30 Memoria d fracture ed 13:59:27 l of shaft fracture Magdy n of right of shaft fibula, of right initial fibula, encounter initial for closed encounter fracture for closed fracture 08/30/2018 [facility] Unspecifie Unspecifi Problem 2018-08-30 Memoria d physeal ed physeal 13:59:27 l fracture fracture Magdy n of phalanx of phalanx of right of right toe, toe, initial initial encounter encounter for closed for closed fracture fracture 08/30/2018 [facility] Type 2 Type 2 Problem 2018-08-30 Mem oria diabetes diabetes 13:59:27 l mellitus mellitus Magdy n with with diabetic diabetic chronic chronic kidney kidney disease disease 08/30/2018 [facility] Acute pain Acute Problem 2018-08-30 M emoria due to pain due 13:59:27 l trauma to trauma Jatinder 08/30/2018 [facility] Hypertensi Hypertens Problem 2018-08-30 Memoria ve chronic diana 13:59:27 l kidney chronic Jatinder disease kidney with stage disease 1 through with stage stage 4 1 through chronic stage 4 kidney chronic disease, kidney or disease, unspecifie or d chronic unspecifie kidney d chronic disease kidney disease 08/30/2018 [facility] Hypoxemia Problem 2018-08-30 Me moria Hypoxemia 13:59:27 l 08/30/2018 Magdy rick [facility] Chronic Chronic Problem 2018-08-30 Nd moria kidney kidney 13:59:27 l disease, disease, Magdy n unspecifie unspecifie d d 08/30/2018 [facility] nursing home nursing home Problem 2018-08-30 Memoria (current) (current) 13:59:27 l use of use of Jatinder aspirin aspirin 08/30/2018 [facility] Closed Closed Problem Active [facility] displaced displaced Phys ici segmental segmental ans fracture fracture of shaft of shaft of right of right tibia tibia Encounter Encounter Problem 2018-08-30 Memoria for for 13:59:27 l immunizati immunizati Ciro rmann on on 08/30/2018 [facility] Hypokalemi Hypokalem Problem 2018-08-30 Memoria a ia 13:59:27 l 08/30/2018 Magdy rick [facility] Type 2 Type 2 Problem 2018-08-30 Mem oria diabetes diabetes 13:59:27 l mellitus mellitus Magdy n with with diabetic diabetic peripheral peripheral angiopathy angiopathy without without gangrene gangrene 08/30/2018 [facility] Stricture Stricture Problem 2018-08-30 Memoria of artery of artery 13:59:27 l 08/30/2018 Magdy rick [facility] Hypocalcem Hypocalce Problem 2018-08-30 Memoria ia rajesh 13:59:27 l 08/30/2018 Magdy rick [facility] UNSP UNSP Diagnosis Active 2018-02-10 Mem oria FRACTURE FRACTURE 11:26:00 l OF SHAFT OF SHAFT Magdy n OF RIGHT OF RIGHT TIBIA, I TIBIA, I Active [facility] Displaced Displaced Problem 2018-08-30 Memoria bicondylar bicondylar 13:59:27 l fracture fracture Magdy n of right of right tibia, tibia, initial initial encounter encounter for closed for closed fracture fracture 08/30/2018 [facility] Displaced Displaced Problem 2018-08-30 Memoria segmental segmental 13:59:27 l fracture fracture Magdy n of shaft of shaft of right of right tibia, tibia, initial initial encounter encounter for closed for closed fracture fracture 08/30/2018 [facility] Acute Acute Problem 2018-08-30 Memor ia kidney kidney 13:59:27 l failure, failure, Magdy n unspecifie unspecifie d d 08/30/2018 [facility] History of Past Illness Condition Condition Condition Status Onset Resolution Last Treating Co mments Source Name Details Category Date Date Treatment Clinician Date Crushing Crushing Problem 2018-0 2018-08-30 2018-08-30 Memoria injury of injury of 8-02 13:59:27 13:59:27 l right right 03:15: Jatinder lower leg, lower leg, 56 initial initial encounter encounter 02/18/2018 08/30/2018 [facility] Allergies, Adverse Reactions, Alerts This patient has no known allergies or adverse reactions. Social History Social Habit Start Date Stop Date Quantity Comments Source Social History 2018-02-06 2018-02-06 Shiva talavera 08:44:03 08:44:03 Medications Ordered Filled Start Stop Current Ordering Indication Dosage Frequency Signature Comments Components Source Medication Medication Date Date Medication? Clinician (SIG) Name Name traMADol traMADol 2017-07 Yes CRYSTLA ROSAS i-ii po q [place] HCl - 50 MG HCl - 50 MG 0-09 M.D. 12H prn Physici Oral Tablet Oral Tablet 00:00: pain ans 00 Gabapentin Gabapentin 2017-07 Yes CRYSTAL ROSAS i po q 8H UT 300 MG Oral 300 MG Oral 0-09 M.D. P hysici Capsule Capsule 00:00: ans 00 Vitamin D Vitamin D Yes CRYSTAL BURDICKMarcela TAKE 1 UT (Ergocalcif (Ergocalcif 9-11 M.D. CAPSULE Physici zack) [id number] zack) 19040 00:00: WEEKLY. ans UNIT Oral UNIT Oral 00 Capsule Capsule traMADol traMADol Yes CRYSTAL ROSAS i po q [place] HCl - 50 MG HCl - 50 MG 8-07 M.D. 6-8H PRN Physici Oral Tablet Oral Tablet 00:00: Pain ans 00 polyethylen 2017- No 17 gm, PO, Memoria e glycol 7-25 Daily, l 3350 oral 20:17: *[facility] for [facility] Compensati reconstitut on ion -dissolve in water or juice, X 14 day, # 255 gm, 0 Refill(s), Pharmacy: [id number] sennosides, No 8.6 mg = 1 Memoria CHCF 8.6 MG 7-25 tab, PO, l Oral Tablet 20:17: Daily, Herm nitin 00 *Workman's Compensati on -with plenty of water, X 14 day, # 14 tab, 0 Refill(s), Pharmacy: [id number] Metformin 2017- Yes 500 mg = 1 Me moria hydrochlori 7-25 tab, PO, l de 500 MG 20:17: BID-Meals, He rmann Oral Tablet 00 *Workman's [Glucophage Compensati ] on -with meals, # 60 tab, 0 Refill(s), Pharmacy: [email or web address] #[id number] Glipizide Yes 10 mg = 1 Mem oria 10 MG Oral 7-25 tab, PO, l Tablet 20:17: BID-Meals, Cintia nn 00 *Workman's Compensati on 30 minutes before breakfast, # 60 tab, 0 Refill(s), Pharmacy: [facility][id number] gabapentin Yes 300 mg = 1 M emoria 300 MG Oral 7-25 cap, PO, l Capsule 20:17: Q8H, Jatinder 00 *Workman's compensati on -Taper down as pain improves, # 90 cap, 0 Refill(s), Pharmacy: [facility] #[id number] Docusate Yes 100 mg = 1 Mem oria Sodium 100 7-25 cap, PO, l MG Oral 20:17: BID, [place] Capsule 00 *Workman's Compensati on -with plenty of water, # 28 cap, 0 Refill(s), Pharmacy: [facility][id number] Aspirin 81 Yes 81 mg = 1 Me moria MG Enteric 7-25 tab, PO, l Coated 20:17: BID, Jatinder Tablet 00 -Workman's Compensati on -do not crush or chew, # 42 tab, 0 Refill(s), Pharmacy: [facility][id number] Acetaminoph No 1,000 mg = Memoria en 500 MG 7-25 2 tab, PO, l Oral Tablet 20:17: Q6H, Magdy n 00 -Workman's compensati on -not to exceed 4000 mg/day, X 14 day, # 112 tab, 0 Refill(s), Pharmacy: [facility][id number] tramadol No See Memoria hydrochlori 7-25 Instructio l de 50 MG 20:17: ns, PRN Magdy n Oral Tablet 00 Pain Score 6-10, *Workman's Compensati on 1-2 tab PO Q6H as needed for pain. Wean as pain improves, # 30 tab, 0 Refill(s) Miralax No Notes: Memoria 7-24 Dissolve l 14:00: in 8 oz of water or juice. (Same as: Miralax) sennosides, No Notes: Bernardo lorna CHCF 02-09 (Same as: l 14:00: Senokot) Dulcolax No Notes: Memoria Laxative 02-09 (Same As: l 11:58: Dulcolax, Bisco-Lax) Vitamin D3 Yes 50,000 Memor ia 50,000 intl 02-08 IntlUnit = l units oral 19:21: 1 cap, PO, H ermann capsule 00 Q30D, # 12 cap, 0 Refill(s) Potassium No Notes: Memori a Chloride 02-08 (Same as: l 17:58: K-Dur 20) "Do Not Crush" For patients unable to swallow tablet, dissolve in one half glass of water. Allow about 2 minutes for the tablets to disintegra te. Stir before giving to prepare slurry and administer . Please exclude Patient s with feeding tube less than 14 Yemeni (Dobhoff, J-tube etc) and pediatric and patients. With food and full glass of water Naproxen No Notes: Memoria 02-08 (Same as: l 14:00: Naprosyn) Take with food. 24 HR Yes 1 tab, PO, Memori a Metformin 02-08 Daily, l hydrochlori 13:46: with Magdy n de 1000 MG 00 evening / meal, # 90 sitagliptin tab, 1 50 MG Refill(s) Extended Release Tablet [Janumet ] Flomax No Notes: Memoria 02-08 (Same As: l 13:30: Flomax) "Do Not Crush" gabapentin No Notes: Memor ia - (Same as: l 13:00: Neurontin) Glucophage No Notes: Memor ia - (Same as: l 22:00: Glucophage ) Take with meal Glyburide 5 No 1 tab, Bernardo lorna MG / 02-07 Route: PO, l Metformin 22:00: Drug Form: He rmann hydrochlori 00 TAB, de 500 MG Dosing Oral Tablet Weight 129.545, kg, BID-Meals, Start date: 02/07/18 17:00:00 CDT, Duration: 30 day, Stop date: 03/09/18 8:00:00 CDT Glucotrol No Notes: Memori a 7-22 (Same as: l 22:00: Glucotrol) [place] 00 30 min before meals. Janumet XR 2017- No Janumet XR M emoria 100 mg-1000 7-22 100 l mg oral 18:23: mg-1000 mg Herm nitin tablet, 00 oral extended tablet, release extended release, See Santy ns, Route: PO, ONCE, 02/07/18 13:23:00 CDT, Stop date: 02/07/18 13:23:00 CDT Lisinopril No Notes: Memor ia 7-22 (Same as: l 14:00: Prinivil, Jatinder 00 Zestril) Hydrochloro No Notes: Bernardo lorna thiazide -22 (Same as: l 14:00: Hydrodiuri Jatinder 00 l) With food. Furosemide No Notes: Memor ia 20 MG Oral -22 (Same as: l Tablet 14:00: Lasix) May Cintia nn 00 cause GI upset. Give with food or milk. Dextrose No 25 gm, 50 Bernardo lorna 50% Syringe 7-22 mL, Route: l 13:20: IVP, Drug Form: INJ, Dosing Weight 129.545, kg, PRN, PRN Blood Glucose Results, Start date: 02/07/18 8:20:00 CDT, Duration: 30 day, Stop date: 03/09/18 8:19:00 CDT Glucagon No 1 mg, Memoria 02-07 Route: IM, l 13:20: Drug form: [place] 00 PDR/INJ, PRN, Dosing Weight 129.545, kg, PRN Blood Glucose Results, Start date: 02/07/18 8:20:00 CDT, Duration: 30 day, Stop date: 03/09/18 8:19:00 CDT Insulin No 60 units) Bernardo lorna regular - WASTE: F/P l 13:20: - Black; E - Municipal Trash Bin Stable for 28 days at room temperatur e Expires in days from ____Date Potassium No Notes: Memori a Chloride - (Same as: l 09:00: KCL) Infuse no faster than 10 mEq/hr if given peripheral ly. Calcium No Notes: Memoria Gluconate 02-07 WASTE: F/P l 07:43: - Sink; E [place] 00 - Municipal Trash Bin Hydralazine No Notes: Bernardo lorna Hydrochlori - (Same as: l de 50 MG 02:00: Apresoline Her rodrigues Oral Tablet ) May interfere w/enteral feedings Take With Food. carvedilol No Notes: Memor ia - Give with l 01:00: food. [place] 00 (Same As: Coreg) Aspirin No Notes: Do Memor ia - not crush l 23:00: or chew. (Same As: Ecotrin) Vitamin D3 No 50,000 Memor ia - IntlUnit, l 23:00: Route: PO, Drug form: CAP, qWeek, Dosing Weight 129.545, kg, Start date: 02/06/18 18:00:00 CDT, Duration: 30 day, Stop date: 03/06/18 9:00:00 CDT Hydralazine No Notes: Bernardo lorna - (Same as: l 22:18: Apresoline [place] ) Push over 5 minutes Ancef No Notes: Memoria 7-21 (Same as l 21:00: Ancef) Jatinder 00 Ancef No Notes: Memoria 7-21 (Same as l 18:00: Ancef) [place] remove No Notes: Memoria patch 7- Remove l 18:00: patch 12 [place] 00 hours after applicatio n each day. Hydromorpho No Notes: Bernardo lorna ne 7- Same as l 17:50: Dilaudid Oxycodone No Notes: Memori a 7-21 (Same as: l 17:50: Roxicodone ) Metoprolol No Notes: Memor ia 7-21 (Same as: l 17:50: Lopressor) Push over 2 minutes Labetalol No 10 mg, 2 Bernardo lorna 7-21 mL, Route: l 17:50: IVP, Drug form: INJ, Q5Min, Dosing Weight 129.545, kg, PRN Elevated BP, Start date: 02/06/18 12:50:00 CDT, Duration: 5 doses or times, Stop date: 02/07/18 0:00:00 CDT Ondansetron No Notes: Bernardo lorna 7-21 (Same as: l 17:50: Zofran) MEDICATION WASTE Product Size: 4 mg Product Wasted: ___ mg Calcium No 1,000 mL, Memor ia Chloride -21 Rate: 125 l 0.0014 17:50: ml/hr, MEQ/ML / 00 Infuse Potassium over: 8 Chloride hr, Route: 0.004 IV, Dosing MEQ/ML / Weight Sodium 129.545 Chloride kg, Total 0.103 Volume: MEQ/ML / 1,000, Sodium Start Lactate date: 0.028 02/06/18 MEQ/ML 12:50:00 Injectable CDT, Solution Duration: 30 day, Stop date: 03/08/18 12:49:00 CDT, 2.59, m2 glycopyrrol No Route: IV, Memoria ate (ANES) 02-06 Drug form: l 17:43: INJ, ONCE, Stop date: 02/06/18 12:43:00 CDT neostigmine No Route: IV, Memoria (ANES) 02-06 Drug form: l 17:43: INJ, ONCE, Stop date: 02/06/18 12:43:00 CDT ondansetron No Route: IV, Memoria (ANES) 02-06 Drug form: l 17:43: INJ, ONCE, Stop date: 02/06/18 12:43:00 CDT acetaminoph No Route: IV, Memoria en (ANES) 02-06 Drug form: l 10 mg 17:15: INJ, Start Magdy n date: 02/06/18 12:15:00 CDT, Stop date: 02/06/18 13:15:00 CDT phenylephri 2017- No Route: IV, Memoria ne (ANES) 02-06 Drug form: l 16:28: INJ, ONCE, Stop date: 02/06/18 11:28:00 CDT metoprolol No Route: IV, M emoria (ANES) 02-06 Drug form: l 16:23: INJ, ONCE, Stop date: 02/06/18 11:23:00 CDT dexamethaso No Route: IV, Memoria ne (ANES) 02-06 Drug form: l 16:23: INJ, ONCE, Stop date: 02/06/18 11:23:00 CDT fentaNYL No Route: IV, Mem oria (ANES) 02-06 Drug form: l 16:23: INJ, ONCE, Stop date: 02/06/18 11:23:00 CDT famotidine No Route: IV, M emoria (ANES) 02-06 Drug form: l 16:18: INJ, ONCE, Stop date: 02/06/18 11:18:00 CDT lidocaine No Route: IV, Me moria (ANES) 02-06 Drug form: l 16:13: INJ, ONCE, Stop date: 02/06/18 11:13:00 CDT midazolam 2017-0 No Route: IV, Me moria (ANES) 02-06 Drug form: l 16:13: SOLN, ONCE, Stop date: 02/06/18 11:13:00 CDT hydromorpho No Route: IV, Memoria ne (ANES) 02-06 Drug form: l 16:13: INJ, ONCE, Stop date: 02/06/18 11:13:00 CDT rocuronium No Route: IV, M emoria (ANES) 02-06 Drug form: l 16:13: INJ, ONCE, Stop date: 02/06/18 11:13:00 CDT propofol No Route: IV, Mem oria (ANES) 02-06 Drug form: l 16:13: INJ, ONCE, Stop date: 02/06/18 11:13:00 CDT ketAMINE No Route: IV, Mem oria (ANES) 02-06 Drug form: l 16:13: INJ, ONCE, Stop date: 02/06/18 11:13:00 CDT ceFAZolin No Route: IV, Me moria (ANES) 02-06 Drug form: l 16:03: INJ, ONCE, Stop date: 02/06/18 11:03:00 CDT Isolyte S No Route: IV, Me moria PH 7.4 02-06 Total l (ANES) 1000 15:23: Volume: Her rodrigues mL 00 1,000, Start date: 02/06/18 10:23:00 CDT, Stop date: 02/06/18 11:23:00 CDT celecoxib No Notes: Memori a 02-06 NSAID. l 14:00: Please check indication . Not for seizure. (Same As: CeleBREX) Vitamin D3 Yes 50,000 Memor ia 50,000 intl 02-06 IntlUnit = l units oral 11:33: 1 cap, PO, H ermann capsule 00 qWeek, # 12 cap, 0 Refill(s) carvedilol Yes 25 mg = 1 Me moria 25 mg oral 02-06 tab, PO, l tablet 11:33: BID, # 180 Cintia nn 00 tab, 0 Refill(s) 24 HR No See Memoria Metformin 02-06 Instructio l hydrochlori 11:33: ns, 1 tab H ermann de 1000 MG 00 PO Daily / 30 day, 0 sitagliptin Refill(s) 100 MG Extended Release Tablet [Janumet 100/1000] Furosemide Yes 20 mg = 1 Me moria 20 MG Oral 02-06 tab, PO, l Tablet 11:33: Daily, # Jatinder 00 30 tab, 0 Refill(s) Hydralazine Yes 50 mg = 1 M emoria Hydrochlori 02-06 tab, PO, l de 50 MG 11:33: QID, 0 Jatinder Oral Tablet 00 Refill(s) Acetaminoph No Notes: Max Memoria en 02-06 acetaminop l 11:00: hen 4000 [place] 00 mg/day (4 gm/day). (Same as: Tylenol Extra Strength) Hydrochloro No 25 mg, PO, Memoria thiazide - Daily, 0 l 08:51: Refill(s) [place] 00 Aspirin No 0 Memoria 02-06 Refill(s) l 08:51: [place] Amlodipine No PO, Daily, M emoria 02-06 0 l 08:51: Refill(s) [place] 00 Lisinopril Yes 40 mg, PO, M emoria 02-06 Daily, 0 l 08:51: Refill(s) potassium No Notes: Memori a chloride 10 02-06 (Same as: l mEq oral 07:47: K-Dur 10) Herm nitin tablet, 00 "Do Not extended Crush" release With food and full glass of water Aspirin 325 No Notes: Bernardo lorna MG Oral 02-06 Take with l Tablet 06:58: food. [place] 00 Lidocaine No Notes: Memori a Hydrochlori 02-06 Apply only l de 0.05 06:00: once for Magdy n MG/MG 00 up to 12 Transdermal hours in a Patch 24-hour [Lidoderm] period (12 hours on and 12 hours off). (Same as: Lidoderm) "Remove old patch before applicatio n of new patch" Docusate No Notes: Memoria 02-06 (Same as: l 05:37: Colace) [place] (Do Not Crush) Enoxaparin No Notes: Memor ia 02-06 (Same as: l 05:30: Lovenox) [place] Oxycodone No Notes: Memori a Hydrochlori 02-06 (Same as: l de 5 MG 05:26: Roxicodone Herm nitin Oral Tablet 00 ) Tramadol No Notes: Not Mem oria 02-06 to exceed l 05:26: 400mg/day. Jatinder 00 (Same As: Ultram) pregabalin No Notes: Memor ia 02-06 (Same as: l 05:26: Lyrica) Ketorolac 0 No 4 days Memor ia 02-06 l 05:26: MEDICATION WASTE Product Size: 30 mg Product Wasted: ___ mg Iohexol 2017- No 120 mL, Memoria 02-06 Route: l 02:51: IVP, Drug Form: SOLN, Dosing Weight 129.545, kg, ONCALL, STAT, Start date: 02/05/18 21:51:00 CDT, Duration: 1 doses or times, Dose = 2.2ml/kg, Max dose = 150ml -- "To be infused by Radiology Staff ONLY" Calcium No 1,000 mL, Memor ia Chloride 02-06 1,000 l 0.0014 00:14: ml/hr, Jatinder MEQ/ML / 00 Infuse Potassium Over: 1 Chloride hr, Route: 0.004 IV, ONCE, MEQ/ML / Priority: Sodium STAT, Chloride Dosing 0.103 Weight MEQ/ML / 129.545 Sodium kg, Start Lactate date: 0.028 02/05/18 MEQ/ML 19:14:00 Injectable CDT, Stop Solution date: 02/05/18 19:14:00 CDT Morphine No 4 mg, Memoria 02-06 Route: l 00:14: IVP, ONCE, Dosing Weight 129.545, kg, Priority: STAT, Start date: 02/05/18 19:14:00 CDT, Stop date: 02/05/18 19:14:00 CDT Immunizations Ordered Immunization Filled Immunization Date Status Commen ts Source Name Name pneumococcal 2018-02-[address] [facility] 23-valent vaccine 20:28:00 Jatinder diphtheria/pertussis 2018-02-06 Completed Bernardo steward , acel/tetanus adult 00:24:00 Herm nitin Vital Signs Vital Name Observation Time Observation Value Comments Source Systolic (mm Hg) 2018-02-10 21:00:00 Bernardo rial Jatinder Diastolic (mm Hg) 2018-02-10 21:00:00 Mem orial Jatinder Heart Rate 2018-02-10 21:00:[address] [facility] Jatinder Temperature Oral (F) 2018-02-10 21:00:00 98.4 F [facility] [place] Respitory Rate 2018-02-10 21:00:00 Memori al Jatinder Respitory Rate 2018-02-10 16:49:00 Memori al [place] Heart Rate 2018-02-10 16:49:00 [facility] Jatinder Systolic (mm Hg) 2018-02-10 16:49:00 Bernardo rial Jatinder Diastolic (mm Hg) 2018-02-10 16:49:00 Mem orial [place] Temperature Oral (F) 2018-02-10 16:49:00 98.3 F [facility] [place] Respitory Rate 2018-02-10 13:08:00 Memori al [place] Systolic (mm Hg) 2018-02-10 13:08:00 Bernardo rial Jatinder Diastolic (mm Hg) 2018-02-10 13:08:00 Mem orial [place] Heart Rate 2018-02-10 13:08:00 [facility] Jatinder Temperature Oral (F) 2018-02-10 13:08:00 98.4 F [facility] [place] Height 2018-02-06 07:38:00 182.88 cm [facility] [place] BMI Calculated 2018-02-06 07:38:00 Memori al Jatinder Weight 2018-02-06 07:38:00 [facility] [place] Weight 2018-02-05 23:52:00 [facility] [place] Procedures Procedure Date / Time Performed Performing Clinician Sourc e [U] XRAY TIBIA FIBULA 2 2019-01-14 00:00:00 [facility] VWS RIGHT [id number] US Extremity lower venous 2018-09-21 00:00:00 [facility] Doppler Unilat [id number] [U] XRAY TIBIA FIBULA 2 2018-09-10 00:00:00 [facility] VWS RIGHT [id number] [U] XRAY TIBIA FIBULA 2 2018-08-04 00:00:00 [facility] VWS RIGHT [id number] [U] XRAY TIBIA FIBULA 2 2018-05-28 00:00:00 [facility] VWS RIGHT [id number] [U] XRAY TIBIA FIBULA 2 2018-04-22 00:00:00 [facility] VWS RIGHT [id number] [U] XRAY TIBIA FIBULA 2 2018-03-16 00:00:00 [facility] VWS RIGHT [id number] Examination of elbow 2003-07-20 06:00:00 Memsadi l Jatinder joint Bowel 1975-07-20 06:00:00 [facility]<sup>1</sup> Encounters Start End Encounter Admission Attending Care Care Encounter Source Date/Time Date/Time Type Type Clinicians Facility Department ID 2019-01-25 2019-01-25 CRYSTAL Carpenter [facility] [id number] [place] 11:15:00 11:15:00 t; Peter ROSAS Trauma Physi marvin ROJAS M.D. [facility] 2018-09-27 2018-09-28 Outpt Diag nullFlavo [facility] [id number] Memoria 16:23:00 04:59:00 Services r Outpatient 00 l Imaging Jatinder Tobias 2018-09-27 2018-09-27 Outpatient Crystal Rosas [facility] [id number] 11:23:00 23:59:00 Angel 00 2018-09-21 2018-09-21 CRYSTAL Carpenter [facility]ics [id number] [place] 12:00:00 12:00:00 t; Peter ROSAS Physi marvin ROJAS M.D. [facility] 2018-08-10 2018-08-10 Anabela LOPES [facility] [id number] [place] 12:00:00 12:00:00 t; TRAVIS LOPES P.A. Physici JEANA, ans P.A. 2018-06-08 2018-06-08 CRYSTAL Carpenter [facility] [id number] [place] 12:00:00 12:00:00 t; Peter ROSAS Physi marvin ROJAS M.D. [facility] 2018-04-27 2018-04-27 Anabela LOPES [facility] [id number] [place] 12:15:00 12:15:00 t; TRAVIS LOPES P.A. Physici JEANA, ans P.A. 2018-03-30 2018-03-30 Anabela LOPES [facility] [id number] [place] 12:15:00 12:15:00 t; TRAVIS LOPES P.A. Physici JEANA, ans P.A. 2018-02-23 2018-02-23 Anabela LOPES [facility] [id number] [place] 12:15:00 12:15:00 t; TRAVIS LOPES P.A. Physici landon ROBLES P.A. 2018-02-05 2018-02-[address] [facility] [id number] Memoria 23:52:00 23:50:00 caitlyn Tobias [facility] 2018-02-05 2018-02-10 Outpatient [place], [facility] [id number] 18:52:00 18:50:00 Albaro Jiang 01 Results Test Description Test Time Test Comments Results Result Sourc e Comments [U] XRAY TIBIA 2018-09-21 [facility] FIBULA 2 VWS RIGHT 10:44:00 acquired, not [id number] reported on this accession number. [U] XRAY TIBIA 2018-04-27 [facility] FIBULA 2 VWS RIGHT 11:12:00 acquired, not [id number] reported on this accession number. [U] XRAY TIBIA 2018-03-30 [facility] FIBULA 2 VWS RIGHT 11:24:00 acquired, not [id number] reported on this accession number. CHEM PANEL 2018-02-10 10:07:00 Test Item Value Reference Range Interpretation Comme nts eGFR (test code = eGFR) [id number] 10:07:00 Test Item Value Reference Range Interpretation Comments AGAP (test code = AGAP) 12.0 10.0-20.[address] [facility] ASSIA [id number] 10:07:00 Test Item Value Reference Range Interpretation Comments Calcium Lvl (test code = Calcium Lvl) 8.2 8.5-10.[address] [facility] ASSIA [id number] 10:07:00 Test Item Value Reference Range Interpretation Comments Potassium Lvl (test code = Potassium 4.0 3.5-5.1 Lvl) [facility] [id number] 10:07:00 Test Item Value Reference Range Interpretation Comments Chloride Lvl (test code = Chloride Lvl) 108 95-109 [facility] [id number] 10:07:00 Test Item Value Reference Range Interpretation Comments CO2 (test code = CO2) 25 24-32 [facility] [id number] 10:07:00 Test Item Value Reference Range Interpretation Comments Sodium Lvl (test code = Sodium Lvl) 141 135-145 [facility]2018-07-25 10:07:00 Test Item Value Reference Range Interpretation Comments Creatinine Lvl (test code = Creatinine 0.82 0.50-1.40 Lvl) [facility]2018-07-25 10:07:00 Test Item Value Reference Range Interpretation Comments Glucose Lvl (test code = Glucose Lvl) 103 70-99 [facility]2018-07-25 10:07:00 Test Item Value Reference Range Interpretation Comments BUN (test code = BUN) 16 02-07 [facility]2018-07-24 11:31:00 Test Item Value Reference Range Interpretation Comments eGFR (test code = eGFR) 110 [facility]2018-07-24 11:31:00 Test Item Value Reference Range Interpretation Comments AGAP (test code = AGAP) 9.7 10.0-20.0 [facility]2018-07-24 11:31:00 Test Item Value Reference Range Interpretation Comments Calcium Lvl (test code = Calcium Lvl) 8.6 8.5-10.5 [facility]2018-07-24 11:31:00 Test Item Value Reference Range Interpretation Comments CO2 (test code = CO2) [facility]2018-07-24 11:31:00 Test Item Value Reference Range Interpretation Comments Sodium Lvl (test code = Sodium Lvl) 141 135-145 [facility]2018-07-24 11:31:00 Test Item Value Reference Range Interpretation Comments Creatinine Lvl (test code = Creatinine 0.85 0.50-1.40 Lvl) [facility]2018-07-24 11:31:00 Test Item Value Reference Range Interpretation Comments Potassium Lvl (test code = Potassium 3.7 3.5-5.1 Lvl) [facility]2018-07-24 11:31:00 Test Item Value Reference Range Interpretation Comments Glucose Lvl (test code = Glucose Lvl) 134 70-99 [facility]2018-07-24 11:31:00 Test Item Value Reference Range Interpretation Comments BUN (test code = BUN) 21 02-07 [facility]2018-07-24 11:31:00 Test Item Value Reference Range Interpretation Comments Chloride Lvl (test code = Chloride Lvl) 104 95-109 [facility]SuzcvodOIVCPBMJMXKV9571-03-78 06:21:00 Test Item Value Reference Range Interpretation Comments AGAP (test code = AGAP) 14.7 10.0-20.0 [facility]XwoygnkSGDDYRICPIOT2031-75-63 06:21:00 Test Item Value Reference Range Interpretation Comments Chloride Lvl (test code = Chloride Lvl) 102 95-109 [facility] HospitalZlgeflgRXGNNDPZTGEO9330-45-37 06:21:00 Test Item Value Reference Range Interpretation Comments Calcium Lvl (test code = Calcium Lvl) 8.2 8.5-10.5 [facility] HospitalPxipnnaGSPKTMKQPEWN6895-35-91 06:21:00 Test Item Value Reference Range Interpretation Comments CO2 (test code = CO2) 29 24-32 [facility] HospitalDiqzhhfJCDZGKAIDKQC5886-48-58 06:21:00 Test Item Value Reference Range Interpretation Comments Potassium Lvl (test code = Potassium 3.7 3.5-5.1 Lvl) [facility] HospitalGrolfxfPLERENJFOMPF6764-56-47 06:21:00 Test Item Value Reference Range Interpretation Comments eGFR (test code = eGFR) 60 [facility] HospitalGasawdxHASORLZXSUEC9950-51-95 06:21:00 Test Item Value Reference Range Interpretation Comments Sodium Lvl (test code = Sodium Lvl) 142 135-145 [facility] HospitalQryylybKPNBJYMFENBF6351-48-89 06:21:00 Test Item Value Reference Range Interpretation Comments Glucose Lvl (test code = Glucose Lvl) 79 70-99 [facility] HospitalGadiwouBEVOJDPPLKGM3144-64-29 06:21:00 Test Item Value Reference Range Interpretation Comments BUN (test code = BUN) 32 7-22 [facility] HospitalPvuibtqHREJDJMDLVYO8100-36-88 06:21:00 Test Item Value Reference Range Interpretation Comments Creatinine Lvl (test code = Creatinine 1.47 0.50-1.40 Lvl) [facility]aleTkopmgqJQPGJTIHKS9695-05-34 06:21:00 Test Item Value Reference Range Interpretation Comments RBC (test code = RBC) 3.33 4.70-6.10 [facility]aleUsyjddnTNXPEMTGOG1254-26-35 06:21:00 Test Item Value Reference Range Interpretation Comments WBC (test code = WBC) 6.5 3.7-10.4 [facility]valeFubbtinJJBWPUWEDH3379-69-78 06:21:00 Test Item Value Reference Range Interpretation Comments MPV (test code = MPV) 9.7 7.4-10.4 [facility]aleArhjbydFKHZNLHGMB2622-87-27 06:21:00 Test Item Value Reference Range Interpretation Comments Hct (test code = Hct) 29.7 42.0-54.0 [facility]valeHtthtedMPCPWOYKMU2490-44-06 06:21:00 Test Item Value Reference Range Interpretation Comments MCHC (test code = MCHC) 34.1 32.0-36.0 [facility]valeIqoobmxPLHDLRIHIV0367-55-12 06:21:00 Test Item Value Reference Range Interpretation Comments Platelet (test code = Platelet) 131 133-450 [facility]valeZwfwnsiULGPJVBNAL1803-34-43 06:21:00 Test Item Value Reference Range Interpretation Comments RDW (test code = RDW) 14.6 11.5-14.5 [facility]aleOhltkgjYOBHMNNBST2040-33-66 06:21:00 Test Item Value Reference Range Interpretation Comments MCV (test code = MCV) 89.0 80.0-94.0 [facility]aleIgplvtoLRWWEOKGVJ2912-88-13 06:21:00 Test Item Value Reference Range Interpretation Comments Hgb (test code = Hgb) 10.1 14.0-18.0 [facility]aleTjsqfxxBVPTUXFCHZ6451-67-28 06:21:00 Test Item Value Reference Range Interpretation Comments MCH (test code = MCH) 30.4 pg 27.0-31.0 [facility]valeYivqqavYEYQMZNKAV4013-65-47 06:21:00 Test Item Value Reference Range Interpretation Comments Eosinophils # (test code 0.4 See_Comment [A utomated message] The = Eosinophils #) system whic h generated this result tra nsmitted reference range : <=0.5. The reference r destiney was not used to int erpret this result as normal/abnormal . [facility]aleKxmbmwnYLZGYKLEBB0619-06-16 06:21:00 Test Item Value Reference Range Interpretation Comments Monocytes # (test code 0.8 See_Comment [Aut omated message] The = Monocytes #) system which generated this result tra nsmitted reference range : <=0.8. The reference r destiney was not used to int erpret this result as normal/abnormal . [facility]aleQzyrwprSSYWIRKXGK0104-64-02 06:21:00 Test Item Value Reference Range Interpretation Comments Lymphocytes # (test code = Lymphocytes 1.6 1.0-5.5 #) [facility]alePzoxrvcIQVHUZHTMB7734-32-76 06:21:00 Test Item Value Reference Range Interpretation Comments Monocytes (test code = Monocytes) 12.2 2.0-12.0 [facility]aleSjguoqmFFJCSPSADS6814-09-58 06:21:00 Test Item Value Reference Range Interpretation Comments Lymphocytes (test code = Lymphocytes) 25.0 20.0-40.0 [facility]valeMoavneaHNLHJOVTYE3825-31-91 06:21:00 Test Item Value Reference Range Interpretation Comments Eosinophils (test code = 5.4 See_Comment [A utomated message] The Eosinophils) system which ge nerated this result tra nsmitted reference range : <=4.0. The reference r destiney was not used to int erpret this result as normal/abnormal . [facility] SunnyvaleDzuhokaFPTOXERZTS2963-49-34 06:21:00 Test Item Value Reference Range Interpretation Comments Segs (test code = Segs) 56.8 45.0-75.0 [facility]valeUeieqthYFAAAWZAGC6753-41-84 06:21:00 Test Item Value Reference Range Interpretation Comments Basophils (test code = 0.6 See_Comment [Aut omated message] The Basophils) system which ge nerated this result tra nsmitted reference range : <=1.0. The reference r destiney was not used to int erpret this result as normal/abnormal . [facility]aleGhiuytwFGUCFJWSKE3946-98-13 06:21:00 Test Item Value Reference Range Interpretation Comments Neutrophils # (test code = Neutrophils 3.7 1.5-8.1 #) [facility]aleKwvcofdSSZCZVIEZF3744-84-05 05:07:00 Test Item Value Reference Range Interpretation Comments Monocytes (test code = Monocytes) 8.7 2.0-12.0 [facility]aleOwkbtzhXHVTUWPVAA4325-22-53 05:07:00 Test Item Value Reference Range Interpretation Comments Neutrophils # (test code = Neutrophils 5.1 1.5-8.1 #) [facility]aleYsycxtkAWKDXYYLYV0478-99-60 05:07:00 Test Item Value Reference Range Interpretation Comments Lymphocytes # (test code = Lymphocytes 0.9 1.0-5.5 #) [facility]valeAzwqnrbONOWUEVCNM7741-33-27 05:07:00 Test Item Value Reference Range Interpretation Comments Monocytes # (test code 0.6 See_Comment [Aut omated message] The = Monocytes #) system which generated this result tra nsmitted reference range : <=0.8. The reference r destiney was not used to int erpret this result as normal/abnormal . [facility]HttgoluRGKWHPAUBO5871-81-08 05:07:00 Test Item Value Reference Range Interpretation Comments MPV (test code = MPV) 10.1 7.4-10.4 [facility] SystemWtvuvpcVBSAFMMBAS1395-63-72 05:07:00 Test Item Value Reference Range Interpretation Comments Platelet (test code = Platelet) 121 133-450 [facility] SystemIcombhkJKWJRFDZYS0853-64-16 05:07:00 Test Item Value Reference Range Interpretation Comments MCHC (test code = MCHC) 33.1 32.0-36.0 [facility] SystemFffbjygQRCFSWHVAC5251-92-28 05:07:00 Test Item Value Reference Range Interpretation Comments RDW (test code = RDW) 14.7 11.5-14.5 [facility] SystemEohpdarFYBTGXZCUX7693-27-17 05:07:00 Test Item Value Reference Range Interpretation Comments MCV (test code = MCV) 90.2 80.0-94.0 [facility] SystemSbkvcrnMDHVFQOQSG3968-77-94 05:07:00 Test Item Value Reference Range Interpretation Comments MCH (test code = MCH) 29.9 pg 27.0-31.0 [facility] TylerWemytnlGVNOYGYEGF2880-82-66 05:07:00 Test Item Value Reference Range Interpretation Comments RBC (test code = RBC) 3.34 4.70-6.10 [facility] SystemPzjeoesZLUDKADSAM7209-52-60 05:07:00 Test Item Value Reference Range Interpretation Comments WBC (test code = WBC) 6.6 3.7-10.4 [facility] TylerTuforieFBSYWYFSYV7853-01-93 05:07:00 Test Item Value Reference Range Interpretation Comments Hgb (test code = Hgb) 10.0 14.0-18.0 [facility] TylerUwjugxkOICTNKFZGM3756-85-27 05:07:00 Test Item Value Reference Range Interpretation Comments Hct (test code = Hct) 30.2 42.0-54.0 [facility] VSKVYLOLY4367-40-22 05:07:00 Test Item Value Reference Range Interpretation Comments Hgb A1C (test code = Hgb A1C) 7.5 [facility] TylerCHEM HJKIB0541-49-36 05:07:00 Test Item Value Reference Range Interpretation Comments Phosphorus (test code = Phosphorus) 4.0 2.5-4.5 [facility]2018-07-22 05:07:00 Test Item Value Reference Range Interpretation Comments Magnesium Lvl (test code = Magnesium 2.0 1.8-2.4 Lvl) [facility] SunnyvaleMkaedreGEJJSVGPQK5971-48-84 05:07:00 Test Item Value Reference Range Interpretation Comments Segs (test code = Segs) 77.1 45.0-75.0 [facility]valeMyyuvauAZBZSXFKKH1411-00-88 05:07:00 Test Item Value Reference Range Interpretation Comments Eosinophils (test code = 0.2 See_Comment [A utomated message] The Eosinophils) system which ge nerated this result tra nsmitted reference range : <=4.0. The reference r destiney was not used to int erpret this result as normal/abnormal . [facility]valePtejetoGHMOHJDVVN6728-62-64 05:07:00 Test Item Value Reference Range Interpretation Comments Basophils (test code = 0.4 See_Comment [Aut omated message] The Basophils) system which ge nerated this result tra nsmitted reference range : <=1.0. The reference r destiney was not used to int erpret this result as normal/abnormal . [facility]aleAphsnsySCGNFIPZYV5100-90-29 05:07:00 Test Item Value Reference Range Interpretation Comments Lymphocytes (test code = Lymphocytes) 13.6 20.0-40.0 [facility]2018-07-21 08:39:00 Test Item Value Reference Range Interpretation Comments Bili Total (test code = Bili Total) 1.2 0.2-1.3 [facility]2018-07-21 08:39:00 Test Item Value Reference Range Interpretation Comments Total Protein (test code = Total 6.5 6.4-8.4 Protein) [facility]2018-07-21 08:39:00 Test Item Value Reference Range Interpretation Comments Albumin Lvl (test code = Albumin Lvl) 3.4 3.5-5.0 [facility]2018-07-21 08:39:00 Test Item Value Reference Range Interpretation Comments ALT (test code = ALT) 35 See_Comment [Auto mated message] The system which ge nerated this result transmit tg reference range : <=65. The reference range was not used to interpr et this result as arik l/abnormal. [facility]2018-07-21 08:39:00 Test Item Value Reference Range Interpretation Comments AST (test code = AST) 27 See_Comment [Auto mated message] The system which ge nerated this result transmit tg reference range : <=37. The reference range was not used to interpr et this result as arik l/abnormal. [facility]2018-07-21 08:39:00 Test Item Value Reference Range Interpretation Comments Alk Phos (test code = Alk Phos) 48 39-136 [facility]2018-07-21 08:39:00 Test Item Value Reference Range Interpretation Comments A/G Ratio (test code = A/G Ratio) 1.1 1 0.7-1.6 [facility]2018-07-21 08:39:00 Test Item Value Reference Range Interpretation Comments Globulin (test code = Globulin) 3.1 2.7-4.2 [facility]2018-07-21 08:39:00 Test Item Value Reference Range Interpretation Comments B/C Ratio (test code = B/C Ratio) 18 1 6-25 [facility]valeZxtnrdoETYHSWTMCS0020-63-48 08:39:00 Test Item Value Reference Range Interpretation Comments Platelet (test code = Platelet) 131 133-450 [facility] SunnyvaleGtehhvtIFUXLZGOFD5208-51-11 08:39:00 Test Item Value Reference Range Interpretation Comments MPV (test code = MPV) 9.9 7.4-10.4 [facility] SunnyvaleZutgsdxHMAKEALRMB7473-93-34 08:39:00 Test Item Value Reference Range Interpretation Comments RDW (test code = RDW) 14.7 11.5-14.5 [facility]valeVhjsijbCOSVVSWIMS2059-64-83 08:39:00 Test Item Value Reference Range Interpretation Comments MCH (test code = MCH) 29.1 pg 27.0-31.0 [facility] SunnyvaleYmnegxzPFIJSTKKQO4382-77-00 08:39:00 Test Item Value Reference Range Interpretation Comments MCHC (test code = MCHC) 32.3 32.0-36.0 [facility]valeJdsjdvkDGOJPLVJIE4831-84-79 08:39:00 Test Item Value Reference Range Interpretation Comments Hct (test code = Hct) 35.6 42.0-54.0 [facility]valeBtyhxdxFTPWZDQMFQ3802-55-34 08:39:00 Test Item Value Reference Range Interpretation Comments MCV (test code = MCV) 90.0 80.0-94.0 [facility] SunnyvaleNenjnkrCYXGZMJKGB6173-27-33 08:39:00 Test Item Value Reference Range Interpretation Comments Hgb (test code = Hgb) 11.5 14.0-18.0 [facility]valeOnpendfRFIIDPRVJV4587-98-55 08:39:00 Test Item Value Reference Range Interpretation Comments WBC (test code = WBC) 6.0 3.7-10.4 [facility]valeLlppjatZNSEDXBAKV8929-38-46 08:39:00 Test Item Value Reference Range Interpretation Comments RBC (test code = RBC) 3.96 4.70-6.10 [facility]valeIayhqibVGSWUZHCNV6610-06-79 08:39:00 Test Item Value Reference Range Interpretation Comments Monocytes (test code = Monocytes) 12.2 2.0-12.0 [facility]valeXtkyzmrIDFBKTGFAL3498-10-85 08:39:00 Test Item Value Reference Range Interpretation Comments Basophils (test code = 0.5 See_Comment [Aut omated message] The Basophils) system which ge nerated this result tra nsmitted reference range : <=1.0. The reference r destiney was not used to int erpret this result as normal/abnormal . [facility] SunnyvaleDavntkaVZGMYYQGMK8448-54-73 08:39:00 Test Item Value Reference Range Interpretation Comments Eosinophils (test code = 2.5 See_Comment [A utomated message] The Eosinophils) system which ge nerated this result tra nsmitted reference range : <=4.0. The reference r destiney was not used to int erpret this result as normal/abnormal . [facility]valeRpkbczpTGKTXRVZVM3830-73-92 08:39:00 Test Item Value Reference Range Interpretation Comments Neutrophils # (test code = Neutrophils 3.8 1.5-8.1 #) [facility]valeTanygtcXRAVFPUGIB1294-77-33 08:39:00 Test Item Value Reference Range Interpretation Comments Eosinophils # (test code 0.1 See_Comment [A utomated message] The = Eosinophils #) system whic h generated this result tra nsmitted reference range : <=0.5. The reference r destiney was not used to int erpret this result as normal/abnormal . [facility] SunnyvaleRcghnleKJYIZVLZNX8136-80-54 08:39:00 Test Item Value Reference Range Interpretation Comments Lymphocytes # (test code = Lymphocytes 1.3 1.0-5.5 #) [facility]valeCeozrtyYFZESZZBAW7622-42-17 08:39:00 Test Item Value Reference Range Interpretation Comments Monocytes # (test code 0.7 See_Comment [Aut omated message] The = Monocytes #) system which generated this result tra nsmitted reference range : <=0.8. The reference r destiney was not used to int erpret this result as normal/abnormal . [facility] TylerXonpkzqFNPTIBFEGS8354-38-91 08:39:00 Test Item Value Reference Range Interpretation Comments Segs (test code = Segs) 62.9 45.0-75.0 [facility] TylerYmvoyisGNLRYMFDIB4135-87-59 08:39:00 Test Item Value Reference Range Interpretation Comments Lymphocytes (test code = Lymphocytes) 21.9 20.0-40.0 [facility] TylerCARDIAC HYIXHON7175-53-82 04:40:00 Test Item Value Reference Range Interpretation Comments Total CK (test code = Total CK) 770 12-191 [facility] TylerGlbvvrbNUAOLALFX4618-82-50 04:40:00 Test Item Value Reference Range Interpretation Comments Myoglobin (test code = Myoglobin) 355 25-[address] [facility] [employer] PPWDFFV3049-75-80 02:55:00 Test Item Value Reference Range Interpretation Comments Antibody Scrn (test Negative (02/05/18 9:55 code = Antibody Scrn) PM) [facility] [employer] [id number] 02:55:00 Test Item Value Reference Range Interpretation Comments ABO/Rh (test code = ABO/Rh) AB POS [facility]QlwvthpTFSSPJOLOK3258-22-54 00:20:00 Test Item Value Reference Range Interpretation Comments [facility] HIV 4th GEN (test Negative *NA*(02/05/18 code = CDC HIV 4th 7:20 PM) GEN) [facility] TylerOehmxpaCTGNVVEOYW8047-63-87 00:19:00 Test Item Value Reference Range Interpretation Comments INR (test code = INR) 1.03 1 0.85-1.17 [facility] HospitalCfemmmuVYOUGCQLTV8269-15-68 00:19:00 Test Item Value Reference Range Interpretation Comments PT (test code = PT) 13.5 s 12.0-14.7 [facility]valeEisvyvcYSHIIKKFSD8746-11-08 00:19:00 Test Item Value Reference Range Interpretation Comments PTT (test code = PTT) 24.5 s 22.9-35.8 [facility]
--- NOTE | 2022-03-31 22:35 | RAD REPORT ---
EXAM DESCRIPTION: Jennifer Single View03/31/2022 10:21 pm CLINICAL HISTORY: Shortness breath COMPARISON: January 2022 FINDINGS: Moderate bilateral pulmonary opacities Heart is mildly enlarged IMPRESSION: Bilateral pulmonary opacities could represent pulmonary edema or pneumonia
[2022-03-31 22:53] LABS: Absolute Lymphocytes (CBC) 1.1 K/uL (0.7-4.9); Hematocrit 36.1 % (39.6-49.0); Lymphocytes % 22.1 % (15.3-44.8); MCV 88.7 fL (80-100); MPV 9.2 fL (7.6-11.3); RBC Red Blood Cell Count 4.07 M/uL (4.33-5.43)
--- NOTE | 2022-03-31 22:55 | RAD REPORT ---
EXAM DESCRIPTION: USExtrem Venous W Compress Bil03/31/2022 10:38 pm CLINICAL HISTORY: Leg swelling COMPARISON: January 2022 FINDINGS: The common femoral, superficial femoral, popliteal and posterior tibial veins bilaterally are compressible and demonstrate augmentation. Doppler demonstrates good flow. Grayscale, color and spectral analysis performed on all vessels IMPRESSION: No evidence of deep venous thrombosis involving either lower extremity.
[2022-03-31 23:06] LABS: Magnesium 2.1 mg/dL (1.8-2.4); Potassium 3.8 mmol/L (3.5-5.1)
[2022-03-31 23:19] LABS: Troponin High Sensitivity 59.9 pg/mL (<58.9)
[2022-03-31 23:24] LABS: Protime INR 1.23
[2022-03-31] MEDS ORDERED: FUROSEMIDE 20 MG/ 2ML VIAL ONE (23:32)
[2022-03-31] MEDS ORDERED: ALBUTEROL 2.5 MG/3 ML NEB SOL ONE (23:32)
[2022-03-31] MEDS ORDERED: IPRATROPIUM BROM 0.5MG/2.5ML ONE (23:32)
--- NOTE | 2022-03-31 23:37 | EDPHYS ---
Physician Documentation [facility] Name: Faheem Chance Age: 61 yrs Sex: Male : 1960 Arrival Date: 03/31/2022 Time: 21:31 Bed 24 Private MD: ED Physician David Oleary HPI: 03/31 21:55 This 61 yrs old Black Male presents to ER via Wheelchair with complaints of Breathing cp Difficulty. 21:55 The patient has shortness of breath at rest. cp 21:55 Onset: The symptoms/episode began/occurred yesterday, and became worse today. Duration: cp The symptoms are continuous, and are steadily getting worse. Associated signs and symptoms: Pertinent positives: productive cough, hemoptysis, Pertinent negatives: chest pain, fever. Severity of symptoms: in the emergency department the symptoms are worse. Historical: - Allergies: 22:19 No Known Allergies; jj7 - PMHx: 22:08 Congestive heart failure; Kidney disease; Diabetes mellitus; Hypertensive disorder; jj7 - PSHx: 22:19 left arm, abd sx, right leg; jj7 - Immunization history:: Adult Immunizations up to date. - Social history:: Smoking status: Patient denies any tobacco usage or history of. Patient uses alcohol, occasionally. ROS: 22:00 Constitutional: Negative for body aches, chills, fever, poor PO intake. cp 22:00 Eyes: Negative for injury, pain, redness, and discharge. cp 22:00 ENT: Negative for drainage from ear(s), ear pain, sore throat, difficulty swallowing, difficulty handling secretions. 22:00 Cardiovascular: Positive for edema, Negative for chest pain, palpitations. 22:00 Respiratory: Positive for cough, "sounds productive", shortness of breath, at rest. 22:00 Abdomen/GI: Negative for abdominal pain, vomiting, diarrhea, constipation. 22:00 Neuro: Negative for altered mental status, dizziness, headache, syncope, weakness. 22:00 All other systems are negative. Exam: 22:05 Constitutional: The patient appears in no acute distress, alert, awake, cp non-diaphoretic, non-toxic, well developed, well nourished, obese, uncomfortable. 22:05 Head/Face: Normocephalic, atraumatic. cp 22:05 Eyes: Periorbital structures: appear normal, Conjunctiva: normal, no exudate, no injection, Sclera: no appreciated abnormality, Lids and lashes: appear normal, bilaterally. 22:05 ENT: External ear(s): are unremarkable, Nose: is normal, Mouth: Lips: moist, Oral mucosa: pink and intact, moist, Posterior pharynx: Airway: no evidence of obstruction, patent. 22:05 Neck: ROM/movement: is normal, is supple, without pain, no range of motions limitations. 22:05 Chest/axilla: Inspection: normal, Palpation: is normal, no crepitus, no tenderness. 22:05 Cardiovascular: Rate: normal, Rhythm: regular, Edema: ankle edema, that is moderate, JVD: is not appreciated. 22:05 Respiratory: the patient does not display signs of respiratory distress, Respirations: labored breathing, that is moderate, Breath sounds: decreased breath sounds, that are mild, throughout, bilaterally, stridor, is not appreciated, wheezing: is not appreciated. 22:05 Abdomen/GI: Inspection: abdomen appears normal, Palpation: abdomen is soft and non-tender, in all quadrants. 22:05 Back: pain, is absent, ROM is normal. 22:05 Skin: cellulitis, is not appreciated. 22:05 Neuro: Orientation: to person, place \\T\\ time. Mentation: is normal, Motor: moves all fours, strength is normal, Sensation: is normal. 22:07 ECG was reviewed by the Attending Physician. Vital Signs: 21:42 BP 153 / 130; Pulse 89; Resp 28; Temp 98.2; Pulse Ox 87% on R/A; Weight 125 kg; Height jj7 5 ft. 11 in. (180.34 cm); Pain 0/10; 23:00 BP 163 / 114; Pulse 81; Resp 19; Pulse Ox 99% on Nebulizer Mask; 7 04/01 01:19 BP 144 / 109; Pulse 81; Resp 21; Pulse Ox 94% on 2 lpm NC; Pain 0/10; jj7 02:45 BP 141 / 90; Pulse 67; Resp 16; Pulse Ox 94% on 2 lpm NC; jb4 03/31 21:42 Body Mass Index 38.43 (125.00 kg, 180.34 cm) j MDM: 03/31 21:48 Patient medically screened. cp 22:00 Differential diagnosis: CHF exacerbation, Chronic Obstructive Pulmonary Disease cp Myocardial Infarction pneumonia, Pneumothorax pulmonary edema, Pulmonary Embolism Sepsis Unstable Angina. 23:30 Physician consultation: Alexander Monge was contacted at 23:30, regarding admission, to the telemetry unit. patient's condition, and will see patient in ED, shortly. 23:35 Data reviewed: vital signs, nurses notes, lab test result(s), EKG, radiologic studies, cp plain films. 23:35 Antibiotic administration: Not indicated, the patient does not have an appreciated cp infiltrate. Test interpretation: by ED physician or midlevel provider: ECG, plain radiologic studies. 03/31 21:49 Order name: Basic Metabolic Panel; Complete Time: 23:30 / 23:31 Interpretation: Normal except: BUN 25; CRE 1.37; GFR 58. 03/31 21:49 Order name: CBC with Diff; Complete Time: 23:05 03/31 23:06 Interpretation: Normal except: RBC 4.07; HGB 11.8; HCT 36.1; BASO% 1.4. 03/31 21:49 Order name: Magnesium; Complete Time: 23:30 03/31 21:49 Order name: NT PRO-BNP; Complete Time: 23:30 /12 23:31 Interpretation: Abnormal: NT PRO-BNP 3670. 12 21:49 Order name: PT-INR; Complete Time: 23:30 03/31 21:49 Order name: Troponin HS; Complete Time: 23:30 12 23:31 Interpretation: Abnormal: Troponin HS 59.9. 03/31 21:49 Order name: XRAY Chest (1 view); Complete Time: 23:05 03/31 23:05 Interpretation: Report review. 03/31 21:49 Order name: US Extremity Venous W Compression Fausto; Complete Time: 23:05 03/31 23:08 Order name: Blood Culture Adult (2) 03/31 23:08 Order name: Lactate; Complete Time: 00:46 cp 03/31 23:08 Order name: Procalcitonin; Complete Time: 00:46 cp 03/31 23:56 Order name: SARS RAPID; Complete Time: 00:46 as6 03/31 21:49 Order name: EKG; Complete Time: 21:50 03/31 21:49 Order name: Cardiac monitoring; Complete Time: 22:06 03/31 21:49 Order name: EKG - Nurse/Tech; Complete Time: 22:06 03/31 21:49 Order name: IV Saline Lock; Complete Time: 22:09 03/31 21:49 Order name: Labs collected and sent; Complete Time: 22:09 03/31 21:49 Order name: O2 Per Protocol; Complete Time: 22:06 03/31 21:49 Order name: O2 Sat Monitoring; Complete Time: 22:06 EC:07 Rate is 88 beats/min. Rhythm is regular. GA interval is normal. QRS interval is normal. cp QT interval is normal. Interpreted by me. Reviewed by me. Administered Medications: 23:27 Drug: Lasix (furosemide) 20 mg Route: IVP; Site: right forearm; jj7 23:28 Drug: Albuterol - atroVENT (ipratropium) (3:1) (2.5 mg - 0.5 mg) 3 ml Route: Nebulizer; jj7 04/01 00:25 Drug: Lasix (furosemide) 20 mg Route: IVP; Site: right antecubital; jb4 00:25 Drug: Aspirin Chewable Tablet 324 mg Route: PO; jb4 01:27 Drug: carvedilol 25 mg Route: PO; jj7 Disposition: 05:50 Co-signature as Attending Physician, David Oleary MD I agree with the assessment and kdr plan of care. Disposition Summary: 03/31/22 23:36 Hospitalization Ordered Hospitalization Status: Inpatient Admission cp Provider: Keegan Lizarraga cp Condition: Stable cp Problem: an acute exacerbation cp Symptoms: have improved cp Bed/Room Type: Standard cp Location: Telemetry/MedSurg (Inpatient)(04/01/22 03:59) mw Room Assignment: 408(04/01/22 03:59) Diagnosis - Unspecified combined systolic (congestive) and diastolic (congestive) heart failure cp - Hypoxemia cp Forms: - Medication Reconciliation Form cp - SBAR form cp Signatures: Dispatcher [employer] EDMN Kat Patiño RN RN mw Rittger, Kevin, MD MD kdr Attema, Lee, FNP-Ayala SAMAYOAP-Cla1 Lennox Rosales PA PA cp Bryson, James, RN RN jb4 Eulalia Wolf RN RN jj7 Corrections: (The following items were deleted from the chart) 03/31 22:10 22:07 PMHx: Congestive heart failure; jj7 jj7 22:10 22:07 PMHx: Kidney disease; jj7 jj7 22:10 22:07 PMHx: Hypertension; jj7 jj7 22:10 22:07 PMHx: Diabetes - NIDDM; jj7 jj7 04/01 00:05 03/31 23:36 Telemetry/MedSurg (Inpatient) cp mw 04/01 00:05 03/31 23:36 mw 04/01 03:59 00:05 BR ER HOLD [facility] 03:59 00:05 ERHOLD- mw mw
--- NOTE | 2022-03-31 23:37 | ER ---
Nurse's Notes [facility] Name: Faheem Chance Age: 61 yrs Sex: Male : 1960 Arrival Date: 03/31/2022 Time: 21:31 Bed 24 Private MD: Diagnosis: Unspecified combined systolic (congestive) and diastolic (congestive) heart failure;Hypoxemia Presentation: 03/31 21:42 Chief complaint: problems breathing, started yesterday. Its gotten alot worse since PM aa9 today. I just started coughing too sometimes phlegm comes up, its usually yellow or red. 21:42 Method Of Arrival: Wheelchair aa9 21:42 Coronavirus screen: Client presents with at least one sign or symptom that may indicate jj7 coronavirus-19. Ebola Screen: No symptoms or risks identified at this time. 21:42 Initial Sepsis Screen: Does the patient meet any 2 criteria? No. Patient's initial jj7 sepsis screen is negative. Initial Sepsis Screen: Does the patient have a suspected source of infection? No. Patient's initial sepsis screen is negative. Risk Assessment: Do you want to hurt yourself or someone else? Patient reports no desire to harm self or others. Onset of symptoms was March 31, 2022. 21:42 Acuity: JULISSA 3 jj7 Triage Assessment: 22:11 General: Appears uncomfortable, obese, Behavior is calm, cooperative. Pain: Denies jj7 pain. Respiratory: Reports shortness of breath cough that is productive, Respiratory effort is labored, Onset: The symptoms/episode began/occurred gradually, the patient has moderate shortness of breath. Historical: - Allergies: 22:19 No Known Allergies; jj7 - PMHx: 22:08 Congestive heart failure; Kidney disease; Diabetes mellitus; Hypertensive disorder; jj7 - PSHx: 22:19 left arm, abd sx, right leg; jj7 - Immunization history:: Adult Immunizations up to date. - Social history:: Smoking status: Patient denies any tobacco usage or history of. Patient uses alcohol, occasionally. Screenin:14 Abuse screen: Denies threats or abuse. Nutritional screening: No deficits noted. jj7 Tuberculosis screening:. Fall Risk Secondary diagnosis (15 points) htn. dm. IV access (20 points). Ambulatory Aid- None/Bed Rest/Nurse Assist (0 pts). Total Silveira Fall Scale indicates Low Risk Score (25-44 pts). Fall prevention measures have been instituted. Side Rails Up X 2 Placed close to Nursing Station Family Present and informed to notify staff if they need to leave bedside. Assessment: 22:13 General: see triage assessment note. [facility] 23:30 Reassessment: Patient appears in no apparent distress at this time. Patient and/or jb4 family updated on plan of care and expected duration. Pain level reassessed. Patient is alert, oriented x 3, equal unlabored respirations, skin warm/dry/pink. 04/01 01:00 Reassessment: Patient appears in no apparent distress at this time. Patient and/or jb4 family updated on plan of care and expected duration. Pain level reassessed. Patient is alert, oriented x 3, equal unlabored respirations, skin warm/dry/pink. 02:00 Reassessment: Patient appears in no apparent distress at this time. Patient and/or jb4 family updated on plan of care and expected duration. Pain level reassessed. Patient is alert, oriented x 3, equal unlabored respirations, skin warm/dry/pink. 03:00 Reassessment: Patient appears in no apparent distress at this time. Patient and/or jb4 family updated on plan of care and expected duration. Pain level reassessed. Patient is alert, oriented x 3, equal unlabored respirations, skin warm/dry/pink. Vital Signs: 03/31 21:42 BP 153 / 130; Pulse 89; Resp 28; Temp 98.2; Pulse Ox 87% on R/A; Weight 125 kg; Height [facility] 5 ft. 11 in. (180.34 cm); Pain 0/10; 23:00 BP 163 / 114; Pulse 81; Resp 19; Pulse Ox 99% on Nebulizer Mask; 7 04/01 01:19 BP 144 / 109; Pulse 81; Resp 21; Pulse Ox 94% on 2 lpm NC; Pain 0/10; [facility] 02:45 BP 141 / 90; Pulse 67; Resp 16; Pulse Ox 94% on 2 lpm NC; jb4 03/31 21:42 Body Mass Index 38.43 (125.00 kg, 180.34 cm) [facility] ED Course: 03/31 21:31 Patient arrived in ED. ag3 21:48 Lennox Rosales PA is PHCP. cp 21:48 David Oleary MD is Attending Physician. cp 22:00 Initial lab(s) drawn, by me, sent to lab. EKG done, by ED staff, reviewed by David Oleary MD. Inserted saline lock: 18 gauge in right forearm, using aseptic technique. Blood collected. 22:14 Oxygen administration via nasal cannula \T\ 3L/min Response to oxygen therapy: symptoms jj7 improved. 22:14 Patient has correct armband on for positive identification. Placed in gown. Bed in low jj7 position. Call light in reach. Side rails up X 1. Adult w/ patient. Client placed on continuous cardiac and pulse oximetry monitoring. NIBP monitoring applied. switch maker on. 22:23 XRAY Chest (1 view) In Process Unspecified. EDMS 22:39 Triage completed. jj7 22:40 US Extremity Venous W Compression Fausto In Process Unspecified. EDMS 23:23 Notified Nurse Practitioner and/or Physician [employer] Consultant of a critical lab result(s), bb troponin of 59.9 Lennox ELLISON notified. 23:35 Keegan Lizarraga MD is Hospitalizing Provider. cp 23:54 Austin Garsia, VALENCIA is Primary Nurse. as6 04/01 02:45 No provider procedures requiring assistance completed. Patient admitted, IV remains in jb4 place. Administered Medications: 03/31 23:27 Drug: Lasix (furosemide) 20 mg Route: IVP; Site: right forearm; jj7 23:28 Drug: Albuterol - atroVENT (ipratropium) (3:1) (2.5 mg - 0.5 mg) 3 ml Route: Nebulizer; jj7 04/01 00:25 Drug: Lasix (furosemide) 20 mg Route: IVP; Site: right antecubital; jb4 00:25 Drug: Aspirin Chewable Tablet 324 mg Route: PO; 4 01:27 Drug: carvedilol 25 mg Route: PO; Medication: 03/31 22:14 VIS not applicable for this client. jj7 Output: 04/01 00:23 Urine: 725ml (Voided); Total: 725ml. jb4 01:25 Urine: 525ml (Voided); Total: 1250ml. jj7 Outcome: 03/31 23:36 Decision to Hospitalize by Provider. bryson 04/01 02:45 Admitted to ER Hold. Please see [facility] for further documentation. jb4 Condition: stable Discharge instructions given to patient, Instructed on the need for transfer, Demonstrated understanding of instructions. 05:49 Patient left the ED. jb4 Signatures: Dispatcher [employer] EDMS Laura Mcneal RN RN Lennox Turner PA PA cp Bryson, James, RN RN jb4 Skylar Edwards ag3 Austin Garsia RN RN as6 Mellisa Caldera RN RN aa9 Eulalia Wolf RN RN jj7 Corrections: (The following items were deleted from the chart) 03/31 22:10 22:07 PMHx: Congestive heart failure; jj7 jj7 22:10 22:07 PMHx: Kidney disease; j7 jj7 22:10 22:07 PMHx: Hypertension; j7 jj7 22:10 22:07 PMHx: Diabetes - NIDDM; jj7 jj7 23:23 23:22 Notified Nurse Practitioner and/or Physician [employer] Consultant of a critical lab bb result(s), Bicarb of 10, Creatinine of 9.25 Lennox ELLISON notified bb
[2022-04-01] MEDS ORDERED: FUROSEMIDE 20 MG/ 2ML VIAL ONE (00:29)
[2022-04-01] MEDS ORDERED: ASPIRIN 81 MG CHEWABLE TABLET ONE (00:29)
[2022-04-01 00:41] LABS: SARS-CoV-2 Antigen Rapid Res Negative (Negative)
--- NOTE | 2022-04-01 00:47 | P.HP ---
Certification for Inpatient Patient admitted to: Inpatient With expected LOS: >2 Midnights Patient will require the following post-hospital care: None Practitioner: I am a practitioner with admitting privileges, knowledge of patient current condition, hospital course, and medical plan of care. Services: Services provided to patient in accordance with Admission requirements found in Title 42 Section 412.3 of the Code of Federal Regulations Patient History Date of Service: 04/01/22 Reason for admission: CHF exacerbation History of Present Illness: 61-year-old male with history of chronic systolic congestive heart failure, hypertension, diabetes mellitus type [id number], CKD 2 presents the emergency department for shortness of breath. He reports increasing shortness of breath over the course of the last 1 to 2 days more reports orthopnea, dyspnea on exertion. He was evaluated in the emergency department and his labs were significant for mildly elevated high-sensitivity troponin at 59.9 elevated BNP 3670 creatinine 1.37 GFR 58 chest x-ray shows bilateral pulmonary opacities could represent pulmonary edema or pneumonia, patient with 2+ pitting edema bilateral lower extremities and crackles on exam. He was given IV Lasix in the emergency department ED provider wishes to admit for further evaluation and management of acute on chronic systolic congestive heart failure. Allergies No Known Allergies Allergy (Unverified 02/05/18 17:52) Home Medications: Aspirin [Aspirin EC 81 MG] 1 tab PO DAILY 01/31/22 Cyanocobalamin (Vitamin B-12) [Vitamin B-12] 2,500 mcg PO DAILY 01/31/22 Gabapentin 300 mg PO Q8H 01/31/22 Metformin HCl 1,000 mg PO DAILY 01/31/22 carvediloL [Carvedilol] 25 mg PO BID 01/31/22 traMADol HCL [Ultram*] 50 mg PO Q12HR PRN 01/31/22 Furosemide [Lasix] 40 mg PO DAILY #30 tab 02/01/22 Spironolactone [Aldactone*] 25 mg PO DAILY #30 tab 02/01/22 levoFLOXacin [Levaquin*] 750 mg PO Q48H #3 tab 02/01/22 lisinopriL [Prinivil*] 20 mg PO DAILY #30 tab 02/01/22 - Past Medical/Surgical History -: Hypertension -: Diabetes -: Chronic lymphedema -: Systolic CHF -: Surgery -: leg surgery -: Gastric surgery Psychosocial/ Personal History: Patient lives at home with his - Family History Mother -: Diabetes - Social History Smoking Status: Never smoker Alcohol use: Yes CD- Drugs: No Place of Residence: Home Review of Systems 10-point ROS is otherwise unremarkable Respiratory: Cough, Shortness of Breath, SOB with Excertion Cardiovascular: Orthopnea, Edema Physical Examination - Physical Exam General: Alert, In no apparent distress, Oriented x3 HEENT: Atraumatic, PERRLA, Mucous membr. moist/pink, EOMI, Sclerae nonicteric Neck: Supple, 2+ carotid pulse no bruit, No LAD, Without JVD or thyroid abnormality Respiratory: Clear to auscultation bilaterally, Normal air movement Cardiovascular: Regular rate/rhythm, Normal S1 S2, Edema (2+ pitting edema bilateral lower extremities) Capillary refill: <2 Seconds Gastrointestinal: Normal bowel sounds, No tenderness Musculoskeletal: No tenderness Integumentary: No rashes Neurological: Normal speech, Normal strength at 5/5 x4 extr, Normal tone, Normal affect - Studies Laboratory Data (last 24 hrs) 03/31/22 22:00: PT 13.6 H, INR 1.23 03/31/22 22:00: WBC 5.10, Hgb 11.8 L, Hct 36.1 L, Plt Count 201 03/31/22 22:00: Sodium 141, Potassium 3.8, BUN 25 H, Creatinine 1.37 H, Glucose 104, Magnesium 2.1 Assessment and Plan - Plan Assessment: Acute on chronic systolic congestive heart failure Diabetes mellitus type [id number] Hypertension CKD 2 Plan: Acute on chronic systolic congestive heart failure: Cardiology consulted last echocardiogram 01/30/2022 demonstrated moderately depressed left ventricular ejection fraction 35 to 40%, moderate global hypokinesis. Continue Entresto, spironolactone, carvedilol, IV Lasix for diuresis. Neurology also consulted given patient's CKD and His need for diuresis. Diabetes mellitus type [id number]: Last A1c was greater than 14 although he reports sugars in the 100s at home. We will obtain A1c in the morning, sliding scale insulin for now. Hypertension: Home Medications continued CKD 2: Neurology consulted. Mild worsening, possibly CRS. DVT PPX: Heparin Code status:full Discharge Plan: Home Plan to discharge in: 48 Hours - Advance Directives Does patient have a Living Will: No Does patient have a Durable POA for Healthcare: No - Code Status/Comfort Care Code Status Assessed: Yes (Full code) Critical Care: No Time Spent Managing Pts Care (In Minutes): 70
[2022-04-01] MEDS ORDERED: carvediloL 6.25 MG TAB ONE (01:08)
[2022-04-01] MEDS ORDERED: ONDANSETRON 4 MG/2 ML VIAL IV PRN (04:26)
[2022-04-01 04:40] VITALS: BMI 24.0
[2022-04-01 05:39] LABS: Hematocrit 31.6 % (39.6-49.0); MCV 87.7 fL (80-100); MPV 8.5 fL (7.6-11.3)
[2022-04-01 05:56] LABS: Potassium 3.5 mmol/L (3.5-5.1); Protein, Total 6.3 g/dL (6.4-8.2)
[2022-04-01] MEDS: carvediloL 25 MG TAB PO SCH ×2 (06:00→17:08)
[2022-04-01] MEDS: INSULIN -REGULAR HUMAN 50 UNIT/0.5 ML ML SQ SCH ×4 (07:30→21:00)
[2022-04-01] MEDS ORDERED: POTASSIUM 25 MEQ EFFERV TAB PO ONE (08:00)
[2022-04-01] MEDS: ASPIRIN EC 81 MG TAB PO SCH (09:00)
[2022-04-01] MEDS: FUROSEMIDE 40 MG/4 ML VIAL IV SCH ×2 (09:00→17:08)
[2022-04-01] MEDS: HEPARIN 5000 UNIT/ML 1 ML VIAL SQ SCH ×2 (09:01→21:00)
[2022-04-01] MEDS: SPIRONOLACTONE 25 MG TABLET PO SCH (09:02)
[2022-04-01] MEDS: SACUBITRIL/VALSARTAN 49/51 MG TAB PO SCH ×2 (10:17→21:00)
--- NOTE | 2022-04-01 17:23 | P.CNS ---
Date of Consult: 04/01/22 Reason for Consult: JUAN/ CKD Requesting Physician: Prince Kevin Villegas Chief Complaint: CHF exacerbation History of Present Illness: 61-year-old male with history of chronic systolic congestive heart failure, hypertension, diabetes mellitus type [id number], CKD 2 presents the emergency department for shortness of breath. He reports increasing shortness of breath over the course of the last 1 to 2 days more reports orthopnea, dyspnea on exertion. He was evaluated in the emergency department and his labs were significant for mildly elevated high-sensitivity troponin at 59.9 elevated BNP 3670 creatinine 1.37 GFR 58 chest x-ray shows bilateral pulmonary opacities could represent pulmonary edema or pneumonia, patient with 2+ pitting edema bilateral lower extremities and crackles on exam. He was given IV Lasix in the emergency department ED provider wishes to admit for further evaluation and management of acute on chronic systolic congestive heart failure. 21:42 Chief complaint: problems breathing, started yesterday. Its gotten alot worse since PM aa9 today. I just started coughing too sometimes phlegm comes up, its usually yellow or red. 21:42 Method Of Arrival: Wheelchair aa9 21:42 Coronavirus screen: Client presents with at least one sign or symptom that may indicate jj7 coronavirus-19. Ebola Screen: No symptoms or risks identified at this time. 21:42 Initial Sepsis Screen: Does the patient meet any 2 criteria? No. Patient's initial jj7 sepsis screen is negative. Initial Sepsis Screen: Does the patient have a suspected source of infection? No. Patient's initial sepsis screen is negative. Risk Assessment: Do you want to hurt yourself or someone else? Patient reports no desire to harm self or others. Onset of symptoms was March 31, 2022. 21:42 Acuity: JULISSA 3 jj7 Triage Assessment: 22:11 General: Appears uncomfortable, obese, Behavior is calm, cooperative. Pain: Denies jj7 pain. Respiratory: Reports shortness of breath cough that is productive, Respiratory effort is labored, Onset: The symptoms/episode began/occurred gradually, the patient has moderate shortness of breath Denies NSAIDs. Denies urinary difficulties but he admits to an increase in his urination with furosemide. Allergies No Known Allergies Allergy (Unverified 02/05/18 17:52) Home medications list reviewed: Yes Home Medications: Aspirin [Aspirin EC 81 MG] 1 tab PO DAILY 01/31/22 Cyanocobalamin (Vitamin B-12) [Vitamin B-12] 2,500 mcg PO DAILY 01/31/22 Metformin HCl 1,000 mg PO DAILY 01/31/22 carvediloL [Carvedilol] 25 mg PO BID 01/31/22 Furosemide [Lasix] 40 mg PO DAILY #30 tab 02/01/22 Spironolactone [Aldactone*] 25 mg PO DAILY #30 tab 02/01/22 Sacubitril/Valsartan [Entresto 49 mg-51 mg Tablet] 1 tab PO BID 04/01/22 - Past Medical/Surgical History -: Hypertension -: DM II with CKD & Polyneuropathy -: Chronic lymphedema -: Systolic CHF -: CKD II/ Proteinuria (Dr. Biswas) -: Surgery -: leg surgery -: Gastric surgery Psychosocial/ Personal History: Patient lives at home with his - Family History Mother Medical History: Diabetes - Social History Alcohol use: Yes CD- Drugs: No Place of Residence: Home Review of Systems 10-point ROS is otherwise unremarkable Respiratory: SOB with Excertion Cardiovascular: Edema Physical Examination Temp Pulse Resp BP Pulse Ox 97.0 F 73 18 147/99 H 100 04/01/22 16:00 04/01/22 17:08 04/01/22 16:00 04/01/22 17:08 04/01/22 16:00 General: Oriented x3, Cooperative HEENT: Atraumatic Neck: Supple Respiratory: Diminished Cardiovascular: Regular rate/rhythm, Edema Gastrointestinal: Soft and benign, Non-distended Musculoskeletal: No clubbing, No contractures Integumentary: No rashes, No cyanosis Neurological: Normal speech Laboratory Data (last 24 hrs) 03/31/22 22:00: PT 13.6 H, INR 1.23 03/31/22 22:00: WBC 5.10, Hgb 11.8 L, Hct 36.1 L, Plt Count 201 03/31/22 22:00: Sodium 141, Potassium 3.8, BUN 25 H, Creatinine 1.37 H, Glucose 104, Magnesium 2.1 Imagings Data: EXAM DESCRIPTION: Jennifer Single View03/31/2022 10:21 pm CLINICAL HISTORY: Shortness breath COMPARISON: January 2022 FINDINGS: Moderate bilateral pulmonary opacities Heart is mildly enlarged IMPRESSION: Bilateral pulmonary opacities could represent pulmonary edema or pneumonia EXAM DESCRIPTION: USExtrem Venous W Compress Bil03/31/2022 10:38 pm CLINICAL HISTORY: Leg swelling COMPARISON: January 2022 FINDINGS: The common femoral, superficial femoral, popliteal and posterior tibial veins bilaterally are compressible and demonstrate augmentation. Doppler demonstrates good flow. Grayscale, color and spectral analysis performed on all vessels IMPRESSION: No evidence of deep venous thrombosis involving either lower extremity. Conclusions/Impression: JUAN likely CRS CKD II with proteinuria -No NSAIDs -Continue furosemide and spironolactone Hypokalemia -Replete potassium as ordered -Continue spironolactone HTN with CKD/ CHF -Continue Coreg Systolic CHF, A/C Chronic LE Lymphedema -Continue furosemide and spironolactone -Continue Entresto -Low sodium diet DM II with CKD, Polyneuropathy and Hyperglycemia -RISS -ADA diet Anemia in chronic illness -Monitor H&H Thank you kindly for the referral.
--- NOTE | 2022-04-01 22:10 | CON ---
Date of Consultation: 04/01/2022 Reason For Consultation: Congestive heart failure. History Of Present Illness: A 61-year-old male, history of chronic systolic congestive heart failure , hypertension, diabetes, chronic kidney disease, presented with shortness of breath that is worsenin g over the past 2-3 days along with orthopnea and dyspnea on minimal exertion. Denies having any imtiaz st pain. No nausea, vomiting, or diarrhea. No other complaints. Past Medical History: As outlined above in the HPI. Medications: Refer the reconciliation sheet for detailed list. Allergies: NO KNOWN DRUG ALLERGIES. Family History: No premature coronary artery disease or cancer. Social History: Does not smoke. Drinks alcohol on occasions. Does not use any drugs. Review of Systems: All systems reviewed and they are negative except as mentioned in HPI. Physical Examination: Vital Signs: Temperature is 97.0, pulse 73, breathing at 18, blood pressure 147/99, saturating 100% with 2 L nasal cannula. General: Pleasant middle-aged, obese man, in no apparent distress. Head and Neck: Pupils are equal, reactive to light. Intact eye movements. No cervical lymphadenopa thy. Neck: Supple. Thyroid is not enlarged. Lungs: Decreased breathing sounds with faint crackles in bases. No accessory muscle use or muscle r etraction. Heart: Irregular. No extra sounds. Abdomen: Soft, nontender. Bowel sounds positive. No organomegaly. No masses or hernia. No rigidi ty or rebound. Extremities: Edema bilaterally. No clubbing, cyanosis. Intact pulses. Skin: No rash. Neurologic: Alert, awake. No acute focal deficits appreciated. Investigations: Two troponins were negative and the NT-proBNP was 3670. Creatinine 1.37 on admissio n and now it is 1.24. The chest x-ray showed pulmonary edema. Assessment And Recommendations: 1.Acute on chronic congestive heart failure exacerbation. Agree with Lasix 40 mg q.12 hours and Ald actone. Monitor daily body weight. Low sodium diet less than 2 g. Monitor BUN, creatinine, and viviana ctrolytes. 2.Hypertension. Blood pressure is elevated. Will improve with diuresis and continue current medica tions including the Coreg and Aldactone. Please obtain echocardiogram if it was not done recently. SR/MODL Voice ID: [id number] Report ID: [id number]
[2022-04-02 04:15] LABS: Absolute Lymphocytes (CBC) 0.9 K/uL (0.7-4.9); Hematocrit 33.5 % (39.6-49.0); Lymphocytes % 27.6 % (15.3-44.8); MCV 87.5 fL (80-100); MPV 9.1 fL (7.6-11.3); RBC Red Blood Cell Count 3.83 M/uL (4.33-5.43)
[2022-04-02 04:22] LABS: Bilirubin Total 1.1 mg/dL (0.2-1.0); Potassium 3.4 mmol/L (3.5-5.1); Protein, Total 6.5 g/dL (6.4-8.2)
[2022-04-02 04:49] LABS: Blood Morphology Comment NOT SEEN (NOT SEEN); Platelet Estimate ADEQ
[2022-04-02] MEDS: carvediloL 25 MG TAB PO SCH ×2 (06:33→16:51)
[2022-04-02] MEDS ORDERED: POTASSIUM CL SA 10 MEQ TAB PO ONE (07:20)
[2022-04-02] MEDS: INSULIN -REGULAR HUMAN 50 UNIT/0.5 ML ML SQ SCH ×4 (07:30→21:23)
[2022-04-02] MEDS: DOCUSATE NA 100 MG CAP PO SCH ×2 (08:28→21:22)
[2022-04-02] MEDS: SPIRONOLACTONE 25 MG TABLET PO SCH (08:28)
[2022-04-02] MEDS: ASPIRIN EC 81 MG TAB PO SCH (08:28)
[2022-04-02] MEDS: HEPARIN 5000 UNIT/ML 1 ML VIAL SQ SCH ×2 (08:29→21:23)
[2022-04-02] MEDS: FUROSEMIDE 40 MG/4 ML VIAL IV SCH ×2 (08:29→16:51)
[2022-04-02] MEDS: SACUBITRIL/VALSARTAN 49/51 MG TAB PO SCH ×2 (09:10→21:23)
--- NOTE | 2022-04-02 12:52 | P.PN ---
Subjective Date of Service: 04/02/22 Chief Complaint: CHF exacerbation Subjective: Improving (Patient is diuresis well. We're slowly weaning him off O2.) Physical Examination - Vital Signs Temperature: 98.0 F Blood Pressure: 140/94 Pulse: 75 Respirations: 18 Pulse Ox (%): 100 - Physical Exam General: In no apparent distress, Obese HEENT: Atraumatic, Normocephalic Respiratory: Crackles/rales Cardiovascular: Regular rate/rhythm, Normal S1 S2, Edema Musculoskeletal: Swelling Neurological: Normal speech, Cranial nerves 3-12 intact Assessment And Plan - Current Problems (Diagnosis) (1) Acute on chronic systolic (congestive) heart failure Current Visit: Yes Status: Acute (2) Acute respiratory failure with hypoxemia Current Visit: No Status: Acute (3) DM type 2 (diabetes mellitus, type 2) Current Visit: No Status: Acute (4) Hypertension Current Visit: No Status: Acute (5) Obesity Current Visit: No Status: Acute - Plan Assessment Patient is a 61-year-old -[place] male with obesity and chronic systolic CHF. He is currently admitted after he presented with shortness of breath. He is being treated for decompensated CHF with cardiorenal syndrome. He is responding well to antibiotics. He still requiring supplemental oxygen but is not in respiratory distress. Acute hypoxemic respiratory failure Acute on chronic systolic CHFlast EF of 35 to 40% with moderate global hypokinesis Hypertension Obesity JUAN Plan: Patient diuresing well and his BNP has been more than half. His medications have been optimized as per cardiology. He is currently on beta- anuradha and spironolactone His renal function is improving with diuresis Monitor for ins and out No need to repeat echocardiogram Continue Coreg, furosemide and spironolactone DVT prophylaxis with heparin subcu Encourage ambulation, wean off oxygen as tolerated
--- NOTE | 2022-04-02 16:16 | P.PN ---
Date of Service: 04/02/22 Nephrology note (S) Pt known to me from recent clinic consultation and f/u, pt also recently established with Cardiology and was put on Entresto and I had asked him to increase dose but he was relying on samples and prescription called in to pharmacy came back requiring PA with coverage issues. Meanwhile pt has had continued CURRY and recent worsening of shortness of breath (O) Vitals reviewed in the EMR General: Oriented x3, Cooperative HEENT: Atraumatic, EOMI, NC present Neck: Supple, JVD difficult to appreciate Respiratory:non tachypnec, b/l air entry, reduced at bases Cardiovascular: Regular rate/rhythm, no loud murmurs Gastrointestinal: Soft and benign, Non-distended Musculoskeletal: Pitting and non pitting edema, below knee, Rt > Lt Integumentary: No rashes, No cyanosis Neurological: Normal speech, awake, alert Conclusions/Impression: Stage 1 JUAN 2nd to presumed CRS, other -Renal function stable, cont to monitor with diuretic escalation, Entresto use, other Hypokalemia -Replete potassium as ordered -Continue spironolactone HTN with CKD/ CHF -Continue medications, afterload reduction Systolic CHF, A/C Chronic LE Lymphedema -Continue furosemide and spironolactone -Continue Entresto, dose recently titrated, will have to see how pt can cont to access this medication as an OP -Low sodium diet DM II with hyperglycemia -Ok to cont Metformin while eGFR > 30 ml/min, I had put him on a sulfonylurea as an OP, can explore SGLT2i but cost/coverage will be the issue Martin Vo MD, PEARL
--- NOTE | 2022-04-02 17:15 | EKG ---
Test Date: 2022-03-31 Test Time: 22:02:21 Pelt Grader: PATTIE MEASUREMENT RESULTS: Intervals: Rate: 88 NV: 196 QRSD: 90 QT: 396 QTc: 479 [place]: P: 55 NV: 196 QRS: 123 T: 80 INTERPRETIVE STATEMENTS: Normal sinus rhythm Possible Left atrial enlargement Right axis deviation Abnormal ECG Compared to ECG 01/29/2022 13:39:17 Right-axis deviation now present Atrial premature complex(es) no longer present First degree AV block no longer present T-wave abnormality no longer present Prolonged QT interval no longer present Electronically Signed On 04-02-22 17:07:17 CDT by Emmanuel Novoa
[2022-04-02] MEDS ORDERED: carvediloL 25 MG TAB PO SCH (21:00)
[2022-04-03 00:41] VITALS: O2SAT 96
[2022-04-03 03:42] LABS: Hematocrit 35.5 % (39.6-49.0); Lymphocytes % 28.9 % (15.3-44.8); MCV 87.8 fL (80-100); MPV 8.9 fL (7.6-11.3); RBC Red Blood Cell Count 4.04 M/uL (4.33-5.43)
[2022-04-03 03:55] LABS: Albumin 2.8 g/dL (3.4-5.0); Bilirubin Total 0.6 mg/dL (0.2-1.0); Potassium 3.5 mmol/L (3.5-5.1); Protein, Total 6.3 g/dL (6.4-8.2)
[2022-04-03] MEDS ORDERED: POTASSIUM 25 MEQ EFFERV TAB PO ONE (05:23)
[2022-04-03] MEDS: carvediloL 25 MG TAB PO SCH (06:26)
[2022-04-03] MEDS: INSULIN -REGULAR HUMAN 50 UNIT/0.5 ML ML SQ SCH (07:30)
[2022-04-03] MEDS: SPIRONOLACTONE 25 MG TABLET PO SCH (08:36)
[2022-04-03] MEDS: ASPIRIN EC 81 MG TAB PO SCH (08:36)
[2022-04-03] MEDS: SACUBITRIL/VALSARTAN 49/51 MG TAB PO SCH (08:36)
[2022-04-03] MEDS: DOCUSATE NA 100 MG CAP PO SCH (08:36)
[2022-04-03] MEDS: HEPARIN 5000 UNIT/ML 1 ML VIAL SQ SCH (08:37)
[2022-04-03] MEDS: FUROSEMIDE 40 MG/4 ML VIAL IV SCH (08:37)
[2022-04-03 09:00] VITALS: BP 140/95; TEMP 97.9
[2022-04-03] MEDS ORDERED: SPIRONOLACTONE 25 MG TABLET PO SCH (09:00)
[2022-04-03] MEDS ORDERED: ASPIRIN EC 81 MG TAB PO SCH (09:00)
[2022-04-03] MEDS ORDERED: CYANOCOBALAMIN 1,000 MCG TAB PO SCH (09:00)
--- NOTE | 2022-04-03 10:07 | P.DS ---
Admission Date: 04/01/22 Discharge Date: 04/03/22 Disposition: ROUTINE DISCHARGE Discharge Condition: GOOD Reason for Admission: CHF exacerbation - Problems (1) Acute on chronic systolic (congestive) heart failure Current Visit: Yes Status: Acute (2) Acute respiratory failure with hypoxemia Current Visit: No Status: Acute (3) DM type 2 (diabetes mellitus, type 2) Current Visit: No Status: Acute (4) Hypertension Current Visit: No Status: Acute (5) Obesity Current Visit: No Status: Acute Hospital Course: Admitted with acute on chronic systolic CHF and*sedation. Was requiring supplemental oxygen via nasal cannula. He has been diuresed and successfully weaned off oxygen. At this time patient can be discontinued to resume his usual CHF regimen. His last echo was 2 months ago and revealed an EF of 35 to 40% with moderate global hypokinesis. Cardiology also had a chance to see him during his admission. Vital Signs/Physical Exam: Temp Pulse Resp BP Pulse Ox 97.9 F 77 18 140/95 H 98 04/03/22 08:00 04/03/22 08:00 04/03/22 08:00 04/03/22 08:00 04/03/22 08:00 General: In no apparent distress, Obese HEENT: Atraumatic, Normocephalic Respiratory: Clear to auscultation bilaterally, Normal air movement Cardiovascular: Normal pulses, Regular rate/rhythm, Normal S1 S2 Musculoskeletal: Other (Mild bilateral lower extremity edema) Neurological: Normal speech, Cranial nerves 3-12 intact Laboratory Data at Discharge: WBC 3.40 K/uL (4.3-10.9) L 04/03/22 03:11 Hgb 11.9 g/dL (13.6-17.9) L 04/03/22 03:11 Hct 35.5 % (39.6-49.0) L 04/03/22 03:11 Plt Count 164 K/uL (152-406) 04/03/22 03:11 PT 13.6 SECONDS (9.5-12.5) H 03/31/22 22:00 INR 1.23 03/31/22 22:00 Sodium 142 mmol/L (136-145) 04/03/22 03:11 Potassium 3.5 mmol/L (3.5-5.1) 04/03/22 03:11 BUN 19 mg/dL (7-18) H 04/03/22 03:11 Creatinine 1.26 mg/dL (0.55-1.3) 04/03/22 03:11 Glucose 128 mg/dL (74-106) H 04/03/22 03:11 Magnesium 2.1 mg/dL (1.8-2.4) 03/31/22 22:00 Total Bilirubin 0.6 mg/dL (0.2-1.0) 04/03/22 03:11 AST 12 U/L (15-37) L 04/03/22 03:11 ALT 37 U/L (12-78) 04/03/22 03:11 Alkaline Phosphatase 62 U/L (45-117) 04/03/22 03:11 Home Medications: RX: Aspirin [Aspirin EC 81 MG] 1 tab PO DAILY 01/31/22 RX: Cyanocobalamin (Vitamin B-12) [Vitamin B-12] 2,500 mcg PO DAILY 01/31/22 RX: Metformin HCl 1,000 mg PO DAILY 01/31/22 RX: carvediloL [Carvedilol] 25 mg PO BID 01/31/22 RX: Spironolactone [Aldactone*] 25 mg PO DAILY #30 tab 02/01/22 RX: Sacubitril/Valsartan [Entresto 49 mg-51 mg Tablet] 1 tab PO BID 04/01/22 RX: Docusate [Colace Cap*] 100 mg PO BID cap 04/03/22 RX: Furosemide [Lasix*] 40 mg PO BID #30 tab 04/03/22 RX: Hydralazine [Apresoline*] 25 mg PO BID #30 tab 04/03/22 RX: Sacubitril/Valsartan [Entresto 49 mg-51 mg Tablet] 1 tab PO BID tab 04/03/22 RX: Spironolactone [Aldactone*] 25 mg PO DAILY tab 04/03/22 RX: carvediloL [Coreg*] 25 mg PO BID 6AM 6PM tab 04/03/22 New Medications: RX: Hydralazine [Apresoline*] 25 mg PO BID #30 tab RX: Furosemide [Lasix*] 40 mg PO BID #30 tab Followup: Unknown,U [Primary Care Provider] -
[2022-04-03] MEDS ORDERED: HYDRALAZINE HCL 25 MG TABLET PO SCH (21:00)
== END 2022-04-03 12:05 | disposition home or self-care (01) | DRG 291 ==
LOC: ER 21:29 → ERHOLD 04-01 00:35 → 4TH 04-01 04:09
PROVIDERS: ADMIT Internal Medicine; ATTEND Internal Medicine
DX: I13.0 Hypertensive heart and chronic kidney disease with heart failure and stage 1 through stage 4 chronic kidney disease, or unspecified chronic kidney disease (principal); I50.23 Acute on chronic systolic (congestive) heart failure; J96.01 Acute respiratory failure with hypoxia; N17.9 Acute kidney failure, unspecified; N18.2 Chronic kidney disease, stage 2 (mild); E87.6 Hypokalemia; E11.22 Type 2 diabetes mellitus with diabetic chronic kidney disease; E66.9 Obesity, unspecified; Z68.35 Body mass index [BMI] 35.0-35.9, adult; Z79.82 Long term (current) use of aspirin; Z20.822 Contact with and (suspected) exposure to COVID-19
CPT/HCPCS: 36415; 71045; 80048; 80053; 82947; 83036; 83605; 83735; 83880; 84145; 84484; 85025; 85610; 87040; 87811; 93005; 93970; 94640; 99285; J1644; J1815; J1940